=== PATIENT | female | born 1955 | race Caucasian/White ===

== ENCOUNTER 2017-01-06 12:49 | Emergency (ER) | payer OTHER ==
[~2017-01-06] VITALS: Ht 152.4 cm; Wt 72.0 kg
[~2017-01-06 12:49] MED LIST: CACARBS PO; ESCI10TA PO; FER325 PO; FOLI-49 PO; HYDR-3498 PO; MAGN400T27 PO; METO-448 PO; MULTI PO; PANT40TA4 PO
[2017-01-06 13:01] VITALS: Ht 152.4 cm; Wt 72.0 kg
[2017-01-06] MEDS ORDERED: ELIM TOP (13:56)
[2017-01-06] MEDS ORDERED: CETI10CA PO (13:58)
--- NOTE | 2017-01-06 14:21 | ERD ---
ER Documentation Chief Complaint Date/Time DATE: 01/06/17 TIME: 14:17 Chief Complaint generalized rash HPI Patient is a 61 year old homeless female who presents to the ED with rash x 2 days. She states that she feels " her scabies are coming back." She has a history of scabies and lice. She denies seeing bugs. Denies fever or chills. Denies headache or dizziness. Denies chest pain, cough, shortness of breath or difficulty breathing. Denies abdominal pain, nausea, vomiting or diarrhea or constipation. She states that her arms, legs, abdomen and back are itchy. Denies bleeding. ROS All systems reviewed and are negative except as per history of present illness. Medications Home Meds Active Scripts Cetirizine Hcl* (Zyrtec*) 10 Mg Capsule, 10 MG PO DAILY, #20 TAB.CHEW Prov:EDWINA ABEBE PA-C 01/06/17 Permethrin* (Elimite*) 5% Cr, 1 APPLIC TOP ONCE for 7 Days, #2 TUB Prov:EDWINA ABEBE PA-C 01/06/17 Hydrocodone Bit-Acetaminophen* (Mercedes*) 5-325 Mg Tab, 1 TAB PO Q6 Y for PAIN, # 7 TAB Prov:JARETT HO [employer]SM[employer]ION [employer] 11/05/15 Hydrocodone Bit-Acetaminophen* (Mercedes*) 5-325 Mg Tab, 1 TAB PO Q6 Y for PAIN, # 20 TAB Prov:ANILA GARCIA DO 11/02/15 Pantoprazole* (Pantoprazole*) 40 Mg Tabec, 40 MG PO DAILY@06 for 30 Days Prov:HELEN GONZALEZ. 10/16/15 Multivitamins* (Theragran*) 1 Tab Tab, 1 TAB PO DAILY for 30 Days, TAB Prov:HELEN GONZALEZ M. 10/16/15 Metoprolol Tartrate* (Lopressor*) 25 Mg Tab, 12.5 MG PO BID for 14 Days, TAB Prov:HELEN GONZALEZ M. 10/16/15 Magnesium Oxide* (Mag-Oxide*) 400 Mg Tab, 400 MG PO BID for 30 Days, TAB Prov:HELEN GONZALEZ. 10/16/15 Folic Acid* (Folic Acid*) 1 Mg Tab, 1 MG PO DAILY for 30 Days, TAB Prov:HELEN GONZALEZ. 10/16/15 Ferrous Sulfate* (Ferrous Sulfate*) 325 Mg Tabec, 325 MG PO TID for 30 Days, TAB Prov:HELEN GONZALEZ. 10/16/15 Calcium Carbonate (Ca Carbonate Susp (PEDIATRIC)) 1,250 Mg/5 Ml Susp, 1250 MG PO TID for 30 Days Prov:HELEN GONZALEZ. 10/16/15 Escitalopram Oxalate* (Lexapro*) 10 Mg Tab, 10 MG PO DAILY for 30 Days, TAB Prov:HELEN GONZALEZ. 10/16/15 Allergies Allergies: Coded Allergies: sulfamethoxazole (Verified Allergy, Unknown, 11/02/15) trimethoprim (Verified Allergy, Unknown, 11/02/15) PMhx/Soc Medical and Surgical Hx: pt denies Surgical Hx History of Surgery: No Anesthesia Reaction: No Hx Neurological Disorder: No Hx Respiratory Disorders: No (copd) Hx Cardiac Disorders: No Hx Psychiatric Problems: No Hx Miscellaneous Medical Probl: Yes (breast augmentation) Hx Alcohol Use: No Hx Substance Use: No Hx Tobacco Use: No Smoking Status: Never smoker FmHx Family History: No coronary disease, No diabetes, No other Physical Exam Vitals Vital Signs Date Time Temp Pulse Resp B/P Pulse Ox O2 Delivery O2 Flow Rate FiO2 01/06/17 13:01 98.5 104 18 139/74 98 Physical Exam GENERAL: Well-developed, well-nourished female. Appears in no acute distress. LUNG: Clear to auscultation bilaterally. No rhonchi, wheezing, rales or coarse breath sounds. HEART: Regular rate and rhythm. No murmurs, rubs or gallops. ABDOMEN: No scars, ecchymosis or rashes noted. Soft, nontender, and nondistended. Positive bowel sounds in all four quadrants. No rebound tenderness , no guarding. (-) McBurneys point tenderness. No CVA tenderness. BACK: No midline tenderness. Extremities: Equal pulses bilaterally. No peripheral clubbing, cyanosis or edema. No unilateral leg swelling. NEUROLOGIC: Alert and oriented. Moving all four extremities. 5/5 strength in all extremities. Normal speech. Steady gait. SKIN: Normal color. Warm and dry. No rashes or lesions. Capillary refill < 2 seconds Procedures/MDM ER COURSE: I kept the patient and/or family informed of laboratory and diagnostic imaging results throughout the emergency room course. MEDICAL DECISION MAKING: This is a 61 year old female who presents with rash. Vital signs were reviewed. Patient is afebrile. Patient is not hypoxic. Patient is not toxic or ill- appearing. Patient has rash of unknown etiology. There are no excoriations or bugs seen on examination however I will be treating the patient prophylactically. Low suspicion for necrotizing fasciitis, SJS, toxic epidermal necrolysis, Kawasaki, erythema multiforme, gangrene, scarlet fever, meningococcemia, sepsis, anaphylaxis, sepsis, deep space infection, or foreign body. DISCHARGE: At this time, patient is stable for discharge and outpatient management with no new complaints during the ER course. Patient was sent home with permethrin. Patient will be discharged home with instructions to recheck for new or worsening symptoms such as fever, nausea, weakness, LOC and to follow up with primary care in the next 1-2 days. Patient was advised to return to the ER for any new or worsening symptoms. Plan was discussed and patient and/or family understands and agrees. Home instructions were given. Departure Diagnosis: Primary Impression: Rash Condition: Stable Patient Instructions: Scabies Referrals: YAIR JEAN BAPTISTE (PCP) Additional Instructions: Call your primary care doctor TOMORROW for an appointment during the next 1-2 days.See the doctor sooner or return here if your condition worsens before your appointment time. EDWINA ABEBE PA-C Jan 06, 2017 14:21
[2017-01-06 15:40] VITALS: BP 132/75; PULSE 90; RESP 18; TEMP 98.4
== END 2017-01-06 15:40 | disposition home or self-care (01) ==
LOC: FTE 12:49
DX: R21 Rash and other nonspecific skin eruption (principal); J44.9 Chronic obstructive pulmonary disease, unspecified
CPT/HCPCS: 99283

== ENCOUNTER 2017-10-22 12:38 | Emergency (ER) | END 2017-10-22 15:00 | disposition left against medical advice (07) ==

== ENCOUNTER 2017-12-12 02:06 | Inpatient (IN) | END 2017-12-12 03:45 | disposition left against medical advice (07) | DRG 603 ==

== ENCOUNTER 2018-03-22 11:19 | Inpatient (IN) | END 2018-03-29 16:20 | disposition home health service (06) | DRG 871 ==

== ENCOUNTER 2018-05-24 14:04 | Inpatient (IN) | END 2018-05-31 19:25 | disposition home health service (06) | DRG 314 ==

== ENCOUNTER 2018-12-23 20:29 | Observation (INO) | payer MEDICARE, OTHER ==
[~2018-12-23] VITALS: Ht 167.6 cm; Wt 51.3 kg
[~2018-12-23 20:29] MED LIST changes: -CACARBS PO; -ESCI10TA PO; -FER325 PO; -FOLI-49 PO; -HYDR-3498 PO; -MAGN400T27 PO; +METH10SO PO; +OMEP20CA16 PO; +OXYC15TA PO; -PANT40TA4 PO; +SEVE800T7 PO
[2018-12-24] VITALS (22 sets, daily range): BP systolic 93–145; BP diastolic 65–83; PULSE 78–110; RESP 18–20; Ht 167.6 cm; Wt 51.3 kg
[2018-12-24] MEDS ORDERED: morphine 2 MG INJ IV STA (03:18)
--- NOTE | 2018-12-24 03:18 | ERD ---
ER Documentation Chief Complaint Chief Complaint cp x3 days, +right hand redness and swelling. hx ERSD w/ dialysis HPI This is a 63-year-old female coming with chest pain for 3 days. She says he has had increasing shortness of breath. She complains of right hand pain for 2 weeks as well but was x-rayed another hospital and was found to be negative. Shortness of breath or chest pain getting progressively worse including orthopn ea and dyspnea on exertion. No fevers no chills no nausea no vomiting. No other current complaints ROS All systems reviewed and are negative except as per history of present illness. Medications Home Meds Reported Medications Methadone Hcl* (Methadone Hcl*) 10 Mg/5 Ml Solution, 107 MG PO DAILY, ML 05/23/18 Sevelamer Carbonate* (Renvela*) 800 Mg Tablet, 0.8 GM PO WITH MEALS, TAB 05/21/18 Metoprolol Tartrate* (Lopressor*) 25 Mg Tab, 25 MG PO BID, #60 TAB 05/21/18 Oxycodone Hcl* (IR) (Oxycodone Hcl*) 15 Mg Tablet, 15 MG PO Q4H PRN for PAIN, TAB 05/21/18 Omeprazole* (Omeprazole*) 20 Mg Capsule.dr, 20 MG PO AC BREAKFAST, #30 CAP 03/22/18 Multivitamins* (Theragran*) 1 Tab Tab, 1 TAB PO DAILY, TAB 03/22/18 Allergies Allergies: Coded Allergies: sulfamethoxazole (Verified Allergy, Unknown, 12/23/18) trimethoprim (Verified Allergy, Unknown, 12/23/18) PMhx/Soc History of Surgery: Yes Anesthesia Reaction: No Hx Neurological Disorder: Yes (acute encephalopathy, rheumatoid arthritis) Hx Respiratory Disorders: No Hx Cardiac Disorders: No Hx Psychiatric Problems: No Hx Miscellaneous Medical Probl: Yes (anemia, pancreatitis ) Hx Alcohol Use: Yes (Quit alcohol 2013) Hx Substance Use: Yes (Quit heroin/cocaine in 2009) Hx Tobacco Use: No Smoking Status: Former smoker Physical Exam Vitals Vital Signs Date Temp Pulse Resp B/P (MAP) Pulse Ox O2 O2 Flow FiO2 Time Delivery Rate 12/23/18 97 19 154/99 95 23:11 (117) 12/23/18 Nasal 3 23:05 Cannula 12/23/18 97.1 96 20 155/85 98 21:08 (108) Physical Exam Const: No acute distress Head: Atraumatic Eyes: Normal Conjunctiva ENT: Normal External Ears, Nose and Mouth. Neck: Full range of motion. No meningismus. Resp: Clear to auscultation bilaterally Cardio: Regular rate and rhythm, no murmurs Abd: Soft, non tender, non distended. Normal bowel sounds Skin: No petechiae or rashes Back: No midline or flank tenderness Ext: No cyanosis, or edema Neur: Awake and alert Psych: Normal Mood and Affect Result Diagram: 12/23/18 2326 12/23/18 2326 Results 24 hrs Laboratory Tests Test 12/23/18 23:26 White Blood Count 4.4 10^3/ul Red Blood Count 3.58 10^6/ul Hemoglobin 11.2 g/dl Hematocrit 34.0 % Mean Corpuscular Volume 95.0 fl Mean Corpuscular Hemoglobin 31.3 pg Mean Corpuscular Hemoglobin Concent 32.9 g/dl Red Cell Distribution Width 13.7 % Platelet Count 296 10^3/UL Mean Platelet Volume 10.4 fl Immature Granulocytes % 0.000 % Neutrophils % 3.2 % Lymphocytes % 54.1 % Monocytes % 42.0 % Eosinophils % 0.0 % Basophils % 0.7 % Nucleated Red Blood Cells % 0.0 /100WBC Immature Granulocytes # 0.000 10^3/ul Neutrophils # 0.1 10^3/ul Lymphocytes # 2.4 10^3/ul Monocytes # 1.8 10^3/ul Eosinophils # 0.0 10^3/ul Basophils # 0.0 10^3/ul Nucleated Red Blood Cells # 0.0 10^3/ul Sodium Level 137 mmol/L Potassium Level 5.1 mmol/L Chloride Level 91 mmol/L Carbon Dioxide Level 27 mmol/L Anion Gap 19 Blood Urea Nitrogen 66 mg/dl Creatinine 8.58 mg/dl Est Glomerular Filtrat Rate mL/min 5 mL/min Glucose Level 93 mg/dl Calcium Level 9.3 mg/dl Total Bilirubin 0.0 mg/dl Direct Bilirubin 0.00 mg/dl Indirect Bilirubin 0.0 mg/dl Aspartate Amino Transf (AST/SGOT) 20 IU/L Alanine Aminotransferase (ALT/SGPT) < 6 IU/L Alkaline Phosphatase 186 IU/L Troponin I 0.028 ng/ml B-Type Natriuretic Peptide 83926 PG/ML Total Protein 8.3 g/dl Albumin 3.8 g/dl Globulin 4.50 g/dl Albumin/Globulin Ratio 0.84 Procedures/MDM Emergency room course: Patient seen about the charges placed in bed from evaluation of blood work done for spontaneous child monitor as well as oximetry. I said he could do such as a cast at hand x-ray. Diagnostic data: EKG: Rate/Rhythm: [Normal Sinus Rhythm] QRS, ST, T-waves: [No changes consistent w/ acute ischemia] Impression: [No evidence of ischemia or arrhythmia] Chest X-ray 1V Interpreted by me: Soft Tissue: No acute ab normalities Bones: No acute abnormalities Mediastinum/Cardiac Silhouette/Lungs: [No acute abnormalities] Medical decision making: Patient's heart failure symptoms is concerning for acute decompensation and will require inpatient workup and monitoring. Further w/u for ischemia, arrhythmia, PE or dissection will be deferred to the inpatient team. Accepting Care Team: Current data and ongoing care discussed. Time: 12:15 AM Primary Provider: Hospitalist Consulting: Deferred to inpatient team Outstanding Data: none Departure Diagnosis: Primary Impression: Chest pain Chest pain type: unspecified Qualified Codes: R07.9 - Chest pain, unspecified Condition: Serious ADAN MCCARTHY Dec 24, 2018 03:18
[2018-12-24] MEDS: NITROGLYCERIN (SL) 0.4 MG TAB SL PRN ×2 (03:36→03:47)
[2018-12-24] MEDS ORDERED: NACL 0.9% 3 ML SYG IV SCH (04:00)
[2018-12-24] MEDS ORDERED: ALBUTEROL/IPRATROPIUM (NEB) 3 ML AMP HHN PRN (04:00)
[2018-12-24] MEDS ORDERED: ACETAMINOPHEN 325 MG TAB PO PRN (04:00)
[2018-12-24] MEDS ORDERED: NITROGLYCERIN (SL) 0.4 MG TAB SL PRN (04:00)
[2018-12-24] MEDS ORDERED: ONDANSETRON 4 MG INJ IV PRN (04:00)
[2018-12-24] MEDS ORDERED: SODI650T PO (04:27)
[2018-12-24] MEDS ORDERED: SODI15OR8 PO (04:27)
[2018-12-24] MEDS: PANTOPRAZOLE (EC) 40 MG TAB PO SCH (05:51)
[2018-12-24] MEDS: oxyCODONE 15 MG TAB PO PRN ×3 (05:55→14:22)
[2018-12-24] MEDS: SEVELAMER CARBONATE 0.8 GM PKT PO SCH ×3 (08:00→18:29)
[2018-12-24] MEDS ORDERED: METHADONE HCL XX SCH (09:00)
[2018-12-24] MEDS: METOPROLOL 25 MG TAB PO SCH ×2 (09:00→21:00)
[2018-12-24] MEDS: MULTIVITAMINS THERAPEUTIC TAB PO SCH (09:00)
[2018-12-24] MEDS: HEPARIN 5,000 UNIT/1 ML VIAL SC SCH ×2 (09:04→21:00)
--- NOTE | 2018-12-24 09:10 | HP ---
Date/Time of Note Date/Time of Note DATE: 12/24/18 TIME: 09:03 Assessment/Plan VTE Prophylaxis Pharmacological prophylaxis: heparin Lines/Catheters IV Catheter Type (from Nrsg): Saline Lock Urinary Cath still in place: No Assessment/Plan Assessment/Plan 1. Chest pain: Will rule out ACS 2. Total body pain, possibly related to arthritic pain: Pain management 3. Right hand swelling and pain: Patient fell off her bed 4 days ago. She said she had x-ray as outpatient and was told that no fracture -We will order CT for better evaluation -Pain management 4. ESRD on HD: Nephrology for dialysis 5. History of rheumatoid arthritis: Pain management as needed Result Diagram: 12/24/18 0602 12/24/18 0602 Results 24hrs Laboratory Tests Test 12/23/18 23:26 12/24/18 06:02 White Blood Count 4.4 #L 3.8 L Red Blood Count 3.58 L 3.29 L Hemoglobin 11.2 L 10.4 L Hematocrit 34.0 L 31.3 L Mean Corpuscular Volume 95.0 95.1 Mean Corpuscular Hemoglobin 31.3 31.6 Mean Corpuscular Hemoglobin Concent 32.9 33.2 Red Cell Distribution Width 13.7 13.6 Platelet Count 296 # 258 Mean Platelet Volume 10.4 10.7 H Immature Granulocytes % 0.000 L 0.300 Neutrophils % 3.2 L 3.4 L Lymphocytes % 54.1 H 53.9 H Monocytes % 42.0 H 41.6 H Eosinophils % 0.0 0.0 Basophils % 0.7 0.8 Nucleated Red Blood Cells % 0.0 0.0 Immature Granulocytes # 0.000 0.010 Neutrophils # 0.1 L 0.1 L Lymphocytes # 2.4 2.0 Monocytes # 1.8 H 1.6 H Eosinophils # 0.0 0.0 Basophils # 0.0 0.0 Nucleated Red Blood Cells # 0.0 0.0 Sodium Level 137 135 Potassium Level 5.1 5.3 H Chloride Level 91 L 91 L Carbon Dioxide Level 27 25 Anion Gap 19 H 19 H Blood Urea Nitrogen 66 H 70 H Creatinine 8.58 H 8.64 H Est Glomerular Filtrat Rate mL/min 5 L 5 L Glucose Level 93 109 Calcium Level 9.3 8.5 Total Bilirubin 0.0 L 0.0 L Direct Bilirubin 0.00 0.00 Indirect Bilirubin 0.0 0.0 Aspartate Amino Transf (AST/SGOT) 20 22 Alanine Aminotransferase (ALT/SGPT) < 6 L < 6 L Alkaline Phosphatase 186 H 158 H Troponin I 0.028 0.039 B-Type Natriuretic Peptide 71404 H Total Protein 8.3 H 7.6 Albumin 3.8 3.5 Globulin 4.50 H 4.10 H Albumin/Globulin Ratio 0.84 0.85 Magnesium Level 1.9 Creatine Kinase 38 Creatine Kinase Index 3.6 Creatinine Kinase MB (Mass) 1.38 Triglycerides Level 99 Cholesterol Level 121 LDL Cholesterol, Calculated 76 HDL Cholesterol 25 L Cholesterol/HDL Ratio 4.8 HPI/ROS Admit Date/Time Admit Date/Time Dec 24, 2018 at 01:35 Hx of Present Illness This is a 63-year-old female with a history of hypertension, rheumatoid arthritis, GERD, ESRD on HD. Patient presented to ER complaining of total body pain, chest pain and right hand swelling and pain. She said 4 days ago, she fell off her bed which resulted in a progressively worsening right hand swelling and pain. She said 2 days ago, she had x-ray of right hand and also her right hip and was told was normal. In the ER, EKG without ST elevation or depression. First troponin negative. Chest x-ray shows Trace right-sided pleural effusion and partial lung expansion with expected bibasilar subsegmental atelectasis. PMH/Family/Social Past Medical History Medical History: other Medications Current Medications Nitroglycerin (Nitroglycerin (Sl Tab) 0.4 Mg) 1 tab [id number] PRN SL CHEST PAIN Last administered on 12/24/18at 03:47; Admin Dose 1 TAB; Start 12/24/18 at 03:30 IV Flush (NS 3 ml) 3 ml PER PROTOCOL IV ; Start 12/24/18 at 04:00 Ondansetron HCl (Zofran Inj) 4 mg Q6H PRN IV NAUSEA/VOMITING; Start 12/24/18 at 04:00 Nitroglycerin (Nitroglycerin (Sl Tab) 0.4 Mg) 1 tab Q5M PRN SL .CHEST PAIN; Start 12/24/18 at 04:00 Acetaminophen (Tylenol Tab) 650 mg Q6H PRN PO .PAIN 1-3 OR TEMP; Start 12/24/18 at 04:00 Heparin Sodium (Porcine) (Heparin (5000 Units/1ml)) 5,000 unit Q12 SC ; Start 12/24/18 at 09:00 Albuterol/ Ipratropium (Duoneb) 3 ml Q2H RESP THERAPY PRN HHN SHORTNESS OF BREATH; Start 12/24/18 at 04:00 Metoprolol Tartrate (Lopressor) 25 mg BID PO ; Start 12/24/18 at 09:00 Multivitamins Therapeutic (Theragran) 1 tab DAILY PO ; Start 12/24/18 at 09:00 Oxycodone HCl (Roxicodone) 15 mg Q4H PRN PO PAIN Last administered on 12/24/18at 05:55; Admin Dose 15 MG; Start 12/24/18 at 04:00 Sevelamer Carbonate (Renvela) 0.8 gm WITH MEALS PO ; Start 12/24/18 at 08:00 Miscellaneous Information 107 mg DAILY XX ; Start 12/24/18 at 09:00; Status UNV Pantoprazole (Protonix Tab) 40 mg DAILY@06 PO Last administered on 12/24/18at 05:51; Admin Dose 40 MG; Start 12/24/18 at 06:00 Coded Allergies: sulfamethoxazole (Verified Allergy, Unknown, 12/23/18) trimethoprim (Verified Allergy, Unknown, 12/23/18) Past Surgical History Past Surgical Hx: other (See HPI) Family History Significant Family History: other Social History Alcohol Use: other Smoking Status: Never smoker Drug Use: other Exam/Review of Systems Vital Signs Vitals Vital Signs Date Temp Pulse Resp B/P (MAP) Pulse Ox O2 O2 Flow FiO2 Time Delivery Rate 12/24/18 98.8 93 20 128/72 97 07:29 (90) 12/24/18 Nasal 2.0 04:08 Cannula Intake and Output 12/23/18 12/23/18 12/24/18 1515:00 23:00 07:00 IntakeIntake Total 800 ml BalanceBalance 800 ml Exam Constitutional: other (Slightly sleepy, but was fully arousable and answering questions appropriately) Head: normocephalic, atraumatic Eyes: PERRL Respiratory: clear to auscultation Cardiovascular: other (Slightly tachycardic regular rhythm) Gastrointestinal: soft Extremities: normal pulses, other (Right hand is swollen and tender to deep palpation. ) ADAN DO MD Dec 24, 2018 09:10
--- NOTE | 2018-12-24 13:14 | PN ---
Date/Time of Note Date/Time of Note DATE: 12/24/18 TIME: 13:10 Assessment/Plan VTE Prophylaxis Risk score (from Nsg)>0 risk: 6 SCD applied (from Nsg): Yes Pharmacological prophylaxis: heparin Lines/Catheters IV Catheter Type (from Nrsg): Saline Lock Urinary Cath still in place: No Assessment/Plan Assessment/Plan 1. Chest pain, musculoskeletal, negative troponin, pain control 2. Chronic pain syndrome, on methadone, follow up with pain management outpatient 3. Right hand swelling and pain, no fracture, pain control, CT scan done awaiting for report 4. ESRD on HD, TTS, HD today 5. Rheumatoid arthritis: Pain management as needed 6. DVT prophylaxis: heparin SQ Result Diagram: 12/24/18 0602 12/24/18 0602 Results 24hrs Laboratory Tests Test 12/23/18 23:26 12/24/18 05:58 12/24/18 06:02 12/24/18 10:36 White Blood Count 4.4 #L 3.8 L Red Blood Count 3.58 L 3.29 L Hemoglobin 11.2 L 10.4 L Hematocrit 34.0 L 31.3 L Mean Corpuscular 95.0 95.1 Volume Mean Corpuscular 31.3 31.6 Hemoglobin Mean Corpuscular 32.9 33.2 Hemoglobin Concent Red Cell 13.7 13.6 Distribution Width Platelet Count 296 # 258 Mean Platelet Volume 10.4 10.7 H Immature 0.000 L 0.300 Granulocytes % Neutrophils % 3.2 L 3.4 L Lymphocytes % 54.1 H 53.9 H Monocytes % 42.0 H 41.6 H Eosinophils % 0.0 0.0 Basophils % 0.7 0.8 Nucleated Red Blood 0.0 0.0 Cells % Immature 0.000 0.010 Granulocytes # Neutrophils # 0.1 L 0.1 L Lymphocytes # 2.4 2.0 Monocytes # 1.8 H 1.6 H Eosinophils # 0.0 0.0 Basophils # 0.0 0.0 Nucleated Red Blood 0.0 0.0 Cells # Sodium Level 137 135 Potassium Level 5.1 5.3 H Chloride Level 91 L 91 L Carbon Dioxide Level 27 25 Anion Gap 19 H 19 H Blood Urea Nitrogen 66 H 70 H Creatinine 8.58 H 8.64 H Est Glomerular 5 L 5 L Filtrat Rate mL/min Glucose Level 93 109 Calcium Level 9.3 8.5 Total Bilirubin 0.0 L 0.0 L Direct Bilirubin 0.00 0.00 Indirect Bilirubin 0.0 0.0 Aspartate Amino 20 22 Transf (AST/SGOT) Alanine < 6 L < 6 L Aminotransferase (AL T/SGPT) Alkaline Phosphatase 186 H 158 H Troponin I 0.028 0.039 0.042 B-Type Natriuretic 38809 H Peptide Total Protein 8.3 H 7.6 Albumin 3.8 3.5 Globulin 4.50 H 4.10 H Albumin/Globulin 0.84 0.85 Ratio Hepatitis B Surface NEGATIVE Antigen Magnesium Level 1.9 Creatine Kinase 38 45 Creatine Kinase 3.6 2.3 Index Creatinine Kinase MB 1.38 1.02 (Mass) Triglycerides Level 99 Cholesterol Level 121 LDL Cholesterol, 76 Calculated HDL Cholesterol 25 L Cholesterol/HDL 4.8 Ratio Subjective 24 Hr Interval Summary Free Text/Dictation left lower chest pain, worse on deep breath Exam/Review of Systems Exam Vitals Vital Signs Date Temp Pulse Resp B/P (MAP) Pulse Ox O2 O2 Flow FiO2 Time Delivery Rate 12/24/18 98.9 80 20 122/73 96 11:49 (89) 12/24/18 Nasal 2.0 09:15 Cannula Intake and Output 12/23/18 12/23/18 12/24/18 1414:59 22:59 06:59 IntakeIntake Total 800 ml BalanceBalance 800 ml Constitutional: alert, oriented, well developed Head: normocephalic, atraumatic Eyes: nl conjunctiva, EOMI, nl lids, PERRL ENMT: nl external ears & nose, nl lips & teeth, nl nasal mucosa & septum Neck: supple, non-tender Respiratory: clear to auscultation, normal air movement; No congested cough, No crackles/rales, No diminished breath sounds, No intercostal retraction, No labored breathing, No respirations, No tactile fremitus, No wheezing, No other Cardiovascular: regular rate and rhythm, nl pulses; No bruits, No diastolic murmur, No edema, No gallop, No irregular rhythm, No jugular venous distention (JVD), No murmurs/extra sounds, No rub, No systolic murmur, No S3, No S4, No other Gastrointestinal: soft, nl liver, spleen, non-tender Musculoskeletal: nl extremities to inspection Extremities: normal pulses; No calf tenderness, No cyanosis, No clubbing, No edema, No pitting pedal edema, No palpable cord, No tenderness, No other Neurological: KILN SETTER II-XII intact, nl mental status, nl speech, nl strength Results Results 24hrs Laboratory Tests Test 12/23/18 23:26 12/24/18 05:58 12/24/18 06:02 12/24/18 10:36 White Blood Count 4.4 #L 3.8 L Red Blood Count 3.58 L 3.29 L Hemoglobin 11.2 L 10.4 L Hematocrit 34.0 L 31.3 L Mean Corpuscular 95.0 95.1 Volume Mean Corpuscular 31.3 31.6 Hemoglobin Mean Corpuscular 32.9 33.2 Hemoglobin Concent Red Cell 13.7 13.6 Distribution Width Platelet Count 296 # 258 Mean Platelet Volume 10.4 10.7 H Immature 0.000 L 0.300 Granulocytes % Neutrophils % 3.2 L 3.4 L Lymphocytes % 54.1 H 53.9 H Monocytes % 42.0 H 41.6 H Eosinophils % 0.0 0.0 Basophils % 0.7 0.8 Nucleated Red Blood 0.0 0.0 Cells % Immature 0.000 0.010 Granulocytes # Neutrophils # 0.1 L 0.1 L Lymphocytes # 2.4 2.0 Monocytes # 1.8 H 1.6 H Eosinophils # 0.0 0.0 Basophils # 0.0 0.0 Nucleated Red Blood 0.0 0.0 Cells # Sodium Level 137 135 Potassium Level 5.1 5.3 H Chloride Level 91 L 91 L Carbon Dioxide Level 27 25 Anion Gap 19 H 19 H Blood Urea Nitrogen 66 H 70 H Creatinine 8.58 H 8.64 H Est Glomerular 5 L 5 L Filtrat Rate mL/min Glucose Level 93 109 Calcium Level 9.3 8.5 Total Bilirubin 0.0 L 0.0 L Direct Bilirubin 0.00 0.00 Indirect Bilirubin 0.0 0.0 Aspartate Amino 20 22 Transf (AST/SGOT) Alanine < 6 L < 6 L Aminotransferase (AL T/SGPT) Alkaline Phosphatase 186 H 158 H Troponin I 0.028 0.039 0.042 B-Type Natriuretic 40518 H Peptide Total Protein 8.3 H 7.6 Albumin 3.8 3.5 Globulin 4.50 H 4.10 H Albumin/Globulin 0.84 0.85 Ratio Hepatitis B Surface NEGATIVE Antigen Magnesium Level 1.9 Creatine Kinase 38 45 Creatine Kinase 3.6 2.3 Index Creatinine Kinase MB 1.38 1.02 (Mass) Triglycerides Level 99 Cholesterol Level 121 LDL Cholesterol, 76 Calculated HDL Cholesterol 25 L Cholesterol/HDL 4.8 Ratio Medications Medication Current Medications Nitroglycerin (Nitroglycerin (Sl Tab) 0.4 Mg) 1 tab [id number] PRN SL CHEST PAIN Last administered on 12/24/18at 03:47; Admin Dose 1 TAB; Start 12/24/18 at 03:30 IV Flush (NS 3 ml) 3 ml PER PROTOCOL IV ; Start 12/24/18 at 04:00 Ondansetron HCl (Zofran Inj) 4 mg Q6H PRN IV NAUSEA/VOMITING; Start 12/24/18 at 04:00 Nitroglycerin (Nitroglycerin (Sl Tab) 0.4 Mg) 1 tab Q5M PRN SL .CHEST PAIN; Start 12/24/18 at 04:00 Acetaminophen (Tylenol Tab) 650 mg Q6H PRN PO .PAIN 1-3 OR TEMP; Start 12/24/18 at 04:00 Heparin Sodium (Porcine) (Heparin (5000 Units/1ml)) 5,000 unit Q12 SC Last administered on 12/24/18at 09:04; Admin Dose 5,000 UNIT; Start 12/24/18 at 09:00 Albuterol/ Ipratropium (Duoneb) 3 ml Q2H RESP THERAPY PRN HHN SHORTNESS OF BREATH; Start 12/24/18 at 04:00 Metoprolol Tartrate (Lopressor) 25 mg BID PO Last administered on 12/24/18 09:00; Admin Dose 25 MG; Start 12/24/18 at 09:00 Multivitamins Therapeutic (Theragran) 1 tab DAILY PO Last administered on 12/24/18 09:00; Admin Dose 1 TAB; Start 12/24/18 at 09:00 Oxycodone HCl (Roxicodone) 15 mg Q4H PRN PO PAIN Last administered on 12/24/18 09:59; Admin Dose 15 MG; Start 12/24/18 at 04:00 Sevelamer Carbonate (Renvela) 0.8 gm WITH MEALS PO Last administered on 3/12/19at 12:10; Admin Dose 0.8 GM; Start 12/24/18 at 08:00 Miscellaneous Information 107 mg DAILY XX ; Start 12/24/18 at 09:00; Status UNV Pantoprazole (Protonix Tab) 40 mg DAILY@06 PO Last administered on 12/24/18at 05:51; Admin Dose 40 MG; Start 12/24/18 at 06:00 MAROL EUBANKS MD Dec 24, 2018 13:14
[2018-12-24] MEDS ORDERED: METHADONE HCL 10 MG/ML (1ML) POSYG PO SCH ×3 (15:30→21:00)
[2018-12-24] MEDS ORDERED: METHADONE (1 MG/ML 5 ML PO UD SYG) PO SCH (16:40)
--- NOTE | 2018-12-24 17:30 | CONS ---
Assessment/Plan Assessment/Plan Hospital Course (Demo Recall) 63 yo with multiple medical problems presents with all over body pain and chest pain lasting more than 24 hours with no acute changes on ekg and negative troponins. Chest pain unlikely cardiac, most likely musculoskeletal. Impression: Atypical chest pain ESRD Chronic pain syndrome Recommendations: Echocardiogram ordered If no significant change from 1 year ago then no further workup needed Treat underlying pain syndrome and frailty/fall risk Consultation Date/Type/Reason Admit Date/Time Dec 24, 2018 at 01:35 Date of Consultation: Dec 24, 2018 Type of Consult Cardiology Reason for Consultation chest pain Requesting Provider: MUKUL GUY Date/Time of Note DATE: 12/24/18 TIME: 17:21 Hx of Present Illness 63 yo with multiple medical problems presents yesterday due to all over body pain and inability to walk. She also has chest pain, is a constant squeezing sensation since yesterday. Patient fell out of bed four days prior to admission. Constitutional: no complaints Eyes: no complaints ENT: no complaints Respiratory: no complaints Cardiovascular: chest pain Gastrointestinal: no complaints Genitourinary: no complaints Musculoskeletal: bone/joint pain Skin: no complaints Neurologic: no complaints Endocrine: no complaints Lymphatic: no complaints Psychological: no complaints Immunologic: no complaints Past Medical History Medical History: hypertension, renal disease Home Meds Reported Medications Sodium Polystyrene Sulfonate* (Kayexalate*) 15 Gm/60 Ml Susp, 30 GM PO, ML 12/24/18 Sodium Bicarbonate* (Sodium Bicarbonate*) 650 Mg Tablet, 1300 MG PO BID, TAB 12/24/18 Methadone Hcl* (Methadone Hcl*) 10 Mg/5 Ml Solution, 107 MG PO DAILY, ML 05/23/18 Sevelamer Carbonate* (Renvela*) 800 Mg Tablet, 0.8 GM PO WITH MEALS, TAB 05/21/18 Metoprolol Tartrate* (Lopressor*) 25 Mg Tab, 25 MG PO BID, #60 TAB 05/21/18 Oxycodone Hcl* (IR) (Oxycodone Hcl*) 15 Mg Tablet, 15 MG PO Q4H PRN for PAIN, TAB 05/21/18 Omeprazole* (Omeprazole*) 20 Mg Capsule.dr, 20 MG PO AC BREAKFAST, #30 CAP 03/22/18 Multivitamins* (Theragran*) 1 Tab Tab, 1 TAB PO DAILY, TAB 03/22/18 Medications Current Medications Nitroglycerin (Nitroglycerin (Sl Tab) 0.4 Mg) 1 tab [id number] PRN SL CHEST PAIN Last administered on 12/24/18at 03:47; Admin Dose 1 TAB; Start 12/24/18 at 03:30 IV Flush (NS 3 ml) 3 ml PER PROTOCOL IV ; Start 12/24/18 at 04:00 Ondansetron HCl (Zofran Inj) 4 mg Q6H PRN IV NAUSEA/VOMITING; Start 12/24/18 at 04:00 Nitroglycerin (Nitroglycerin (Sl Tab) 0.4 Mg) 1 tab Q5M PRN SL .CHEST PAIN; Start 12/24/18 at 04:00 Acetaminophen (Tylenol Tab) 650 mg Q6H PRN PO .PAIN 1-3 OR TEMP; Start 12/24/18 at 04:00 Heparin Sodium (Porcine) (Heparin (5000 Units/1ml)) 5,000 unit Q12 SC Last administered on 12/24/18at 09:04; Admin Dose 5,000 UNIT; Start 12/24/18 at 09:00 Albuterol/ Ipratropium (Duoneb) 3 ml Q2H RESP THERAPY PRN HHN SHORTNESS OF BREATH; Start 12/24/18 at 04:00 Metoprolol Tartrate (Lopressor) 25 mg BID PO Last administered on 12/24/18at 09:00; Admin Dose 25 MG; Start 12/24/18 at 09:00 Multivitamins Therapeutic (Theragran) 1 tab DAILY PO Last administered on 10/02at 09:00; Admin Dose 1 TAB; Start 12/24/18 at 09:00 Oxycodone HCl (Roxicodone) 15 mg Q4H PRN PO PAIN Last administered on 12/24/18 14:22; Admin Dose 15 MG; Start 12/24/18 at 04:00 Sevelamer Carbonate (Renvela) 0.8 gm WITH MEALS PO Last administered on 12/24/18at 12:10; Admin Dose 0.8 GM; Start 12/24/18 at 08:00 Pantoprazole (Protonix Tab) 40 mg DAILY@06 PO Last administered on 12/24/18at 0 5:51; Admin Dose 40 MG; Start 12/24/18 at 06:00 Methadone HCl (Methadone Liq) 107 mg NOW PO ; Start 12/24/18 at 16:40; Stop 12/24/18 at 22:00 Methadone HCl (Methadone Liq) 107 mg DAILY PO ; Start 12/25/18 at 09:00 Allergies: Coded Allergies: sulfamethoxazole (Verified Allergy, Unknown, 12/23/18) trimethoprim (Verified Allergy, Unknown, 12/23/18) Past Surgical History Past Surgical Hx: other (See HPI) Social History Alcohol Use: other Smoking Status: Never smoker Drug Use: other Exam/Review of Systems Vital Signs Vitals Vital Signs Date Temp Pulse Resp B/P (MAP) Pulse Ox O2 O2 Flow FiO2 Time Delivery Rate 12/24/18 98.2 82 20 136/76 98 15:43 (96) 12/24/18 Nasal 2.0 09:15 Cannula Intake and Output 12/23/18 12/23/18 12/24/18 1515:00 23:00 07:00 IntakeIntake Total 800 ml BalanceBalance 800 ml Exam Constitutional: alert, oriented, frail Psych: nl mood/affect Head: normocephalic, atraumatic Eyes: nl conjunctiva, EOMI, nl lids, nl sclera ENMT: nl external ears & nose, nl lips & teeth Neck: supple; No jvd, No bruits Respiratory: clear to auscultation, normal air movement Cardiovascular: regular rate and rhythm, nl pulses, other (pain not reproduced on palpation); No murmurs/extra sounds Gastrointestinal: soft, nl liver, spleen, non-tender Musculoskeletal: nl extremities to inspection Extremities: normal pulses Neurological: nl mental status, nl speech Skin: nl turgor; No rash or lesions Labs Result Diagram: 12/24/1860112/24/18601 Results 24hrs Laboratory Tests Test 12/23/18 23:26 12/24/18 05:58 12/24/18 06:02 12/24/18 10:36 White Blood Count 4.4 #L 3.8 L Red Blood Count 3.58 L 3.29 L Hemoglobin 11.2 L 10.4 L Hematocrit 34.0 L 31.3 L Mean Corpuscular 95.0 95.1 Volume Mean Corpuscular 31.3 31.6 Hemoglobin Mean Corpuscular 32.9 33.2 Hemoglobin Concent Red Cell 13.7 13.6 Distribution Width Platelet Count 296 # 258 Mean Platelet Volume 10.4 10.7 H Immature 0.000 L 0.300 Granulocytes % Neutrophils % 3.2 L 3.4 L Lymphocytes % 54.1 H 53.9 H Monocytes % 42.0 H 41.6 H Eosinophils % 0.0 0.0 Basophils % 0.7 0.8 Nucleated Red Blood 0.0 0.0 Cells % Immature 0.000 0.010 Granulocytes # Neutrophils # 0.1 L 0.1 L Lymphocytes # 2.4 2.0 Monocytes # 1.8 H 1.6 H Eosinophils # 0.0 0.0 Basophils # 0.0 0.0 Nucleated Red Blood 0.0 0.0 Cells # Sodium Level 137 135 Potassium Level 5.1 5.3 H Chloride Level 91 L 91 L Carbon Dioxide Level 27 25 Anion Gap 19 H 19 H Blood Urea Nitrogen 66 H 70 H Creatinine 8.58 H 8.64 H Est Glomerular 5 L 5 L Filtrat Rate mL/min Glucose Level 93 109 Calcium Level 9.3 8.5 Total Bilirubin 0.0 L 0.0 L Direct Bilirubin 0.00 0.00 Indirect Bilirubin 0.0 0.0 Aspartate Amino 20 22 Transf (AST/SGOT) Alanine < 6 L < 6 L Aminotransferase (AL T/SGPT) Alkaline Phosphatase 186 H 158 H Troponin I 0.028 0.039 0.042 B-Type Natriuretic 39268 H Peptide Total Protein 8.3 H 7.6 Albumin 3.8 3.5 Globulin 4.50 H 4.10 H Albumin/Globulin 0.84 0.85 Ratio Hepatitis B Surface NEGATIVE Antigen Magnesium Level 1.9 Creatine Kinase 38 45 Creatine Kinase 3.6 2.3 Index Creatinine Kinase MB 1.38 1.02 (Mass) Triglycerides Level 99 Cholesterol Level 121 LDL Cholesterol, 76 Calculated HDL Cholesterol 25 L Cholesterol/HDL 4.8 Ratio Imaging Imaging EKG from admission last night shows nsr at 95 bpm, anterior infact. Echo from 03/2018 shows nsr with mild aortic regurgitation Medications Medications Current Medications Nitroglycerin (Nitroglycerin (Sl Tab) 0.4 Mg) 1 tab [id number] PRN SL CHEST PAIN Last administered on 12/24/18at 03:47; Admin Dose 1 TAB; Start 12/24/18 at 03:30 IV Flush (NS 3 ml) 3 ml PER PROTOCOL IV ; Start 12/24/18 at 04:00 Ondansetron HCl (Zofran Inj) 4 mg Q6H PRN IV NAUSEA/VOMITING; Start 12/24/18 at 04:00 Nitroglycerin (Nitroglycerin (Sl Tab) 0.4 Mg) 1 tab Q5M PRN SL .CHEST PAIN; Start 12/24/18 at 04:00 Acetaminophen (Tylenol Tab) 650 mg Q6H PRN PO .PAIN 1-3 OR TEMP; Start 12/24/18 at 04:00 Heparin Sodium (Porcine) (Heparin (5000 Units/1ml)) 5,000 unit Q12 SC Last administered on 12/24/18 09:04; Admin Dose 5,000 UNIT; Start 12/24/18 at 09:00 Albuterol/ Ipratropium (Duoneb) 3 ml Q2H RESP THERAPY PRN HHN SHORTNESS OF BREATH; Start 12/24/18 at 04:00 Metoprolol Tartrate (Lopressor) 25 mg BID PO Last administered on 12/24/18at 09:00; Admin Dose 25 MG; Start 12/24/18 at 09:00 Multivitamins Therapeutic (Theragran) 1 tab DAILY PO Last administered on 12/24/18 09:00; Admin Dose 1 TAB; Start 12/24/18 at 09:00 Oxycodone HCl (Roxicodone) 15 mg Q4H PRN PO PAIN Last administered on 12/24/18 14:22; Admin Dose 15 MG; Start 12/24/18 at 04:00 Sevelamer Carbonate (Renvela) 0.8 gm WITH MEALS PO Last administered on 12/24/18at 12:10; Admin Dose 0.8 GM; Start 12/24/18 at 08:00 Pantoprazole (Protonix Tab) 40 mg DAILY@06 PO Last administered on 12/24/18 05:51; Admin Dose 40 MG; Start 12/24/18 at 06:00 Methadone HCl (Methadone Liq) 107 mg NOW PO ; Start 12/24/18 at 16:40; Stop 12/24/18 at 22:00 Methadone HCl (Methadone Liq) 107 mg DAILY PO ; Start 12/25/18 at 09:00 MUKUL GUY Dec 24, 2018 17:30
--- NOTE | 2018-12-24 17:47 | CONS ---
DATE OF ADMISSION: 12/24/2018 DATE OF CONSULTATION: TYPE OF CONSULTATION: Nephrology. REASON FOR CONSULTATION: End-stage renal disease. PHYSICIAN REQUESTING CONSULT: Darion Do MD HISTORY OF PRESENT ILLNESS: This is a 63-year-old female with a past medical history of hypertension , history of rheumatoid arthritis, GERD, end-stage renal disease on hemodialysis, who presents to [facility] Emergency Room complaining of total body pain, chest pain, right leg, right hand swelling, pain. The patient states that her symptoms began 4 days ago, progressively getting w orsening especially the pain in right hand. Two days ago, the patient had x-ray of her hand and her hip and was told they were normal. Upon arrival in the emergency room, the patient's EKG that showed no evidence of ST elevation or depression. The patient had a chest x-ray which showed trace right-s ided pleural effusion and partial lung expansion. The patient was subsequently admitted to telemetry for further evaluation to rule out acute coronary syndrome. In terms of patient's renal history, the patient has end-stage renal disease on dialysis Sunday, Sun and Sunday. 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 The patient's ac cess is AV fistula. PAST MEDICAL HISTORY: History of end-stage renal disease, history of rheumatoid arthritis. PAST SURGICAL HISTORY: Status post AV fistula. FAMILY HISTORY: No family history of kidney disease. SOCIAL HISTORY: Does not drink, smoke or do drugs. ALLERGIES: PLEASE SEE LIST. MEDICATIONS: Have been reviewed. REVIEW OF SYSTEMS: A 14-point review of systems conducted. Pertinent positives stated in HPI, other lopez negative. PHYSICAL EXAMINATION: VITAL SIGNS: Blood pressure is 137/76, respiration 20, pulse 82, temperature 98.2. HEENT: Head is normocephalic. Pupils are round, reactive to light. NECK: Supple. HEART: Regular rate. LUNGS: Show diminished breath sounds at base. ABDOMEN: Soft, nontender to palpation without rebound or guarding. EXTREMITIES: Negative for clubbing, cyanosis. No edema. DERMATOLOGIC: No rashes. MUSCULOSKELETAL: Positive tenderness to palpation in bilateral hip and right wrist. No effusions no joann. NEUROLOGIC: No focal deficits. LABORATORY DATA: Show sodium 135, potassium 5.3, chloride 91, BUN 70, creatinine 8.64. White count 6.8, hemoglobin 10.4, platelet count is 258. IMAGING STUDIES: Have been reviewed. ASSESSMENT AND PLAN: This is a 63-year-old female who presents with: 1. End-stage renal disease. Plan is for hemodialysis today. We will dialyze for 3 hours of 2k bath, calcium 2.5. We will ultrafiltrate as tolerated. 2. Hyperkalemia. The patient will be dialyzed on a low potassium bath. 3. Anemia. We will monitor hemoglobin and hematocrit levels. We will give Epogen as needed. 4. Mineral bone disorder. We will monitor calcium and phosphorus levels. 5. Chest pain. Etiology is likely musculoskeletal. The patient is being ruled out for acute tolbert ry syndrome. Continue serial troponins and monitor closely. 6. Chronic pain syndrome. Continue current pain regimen. 7. Right hand swelling. The patient's imaging study shows no acute fracture. Continue to monitor. 8. Rheumatoid arthritis. Continue current treatment plan. Thank you, Dr. Do, for this interesting consult. It will be a pleasure to follow patient with you throughout the hospital course. Dictated By: IMELDA PEREIRA DO NR/NTS Conf#: [id number] DID#: [id number] CC: DARION DO MD; MARLO EUBANKS MD;*End*
[2018-12-25] VITALS (13 sets, daily range): BP systolic 96–126; BP diastolic 61–72; PULSE 78–89; RESP 18–19
[2018-12-25] MEDS: oxyCODONE 15 MG TAB PO PRN (06:01)
[2018-12-25] MEDS: PANTOPRAZOLE (EC) 40 MG TAB PO SCH (06:02)
[2018-12-25] MEDS: SEVELAMER CARBONATE 0.8 GM PKT PO SCH ×2 (08:33→12:00)
[2018-12-25] MEDS ORDERED: METHADONE HCL 10 MG/ML (1ML) POSYG PO SCH (09:00)
[2018-12-25] MEDS ORDERED: METHADONE (1 MG/ML 5 ML PO UD SYG) PO SCH (09:00)
[2018-12-25] MEDS: METOPROLOL 25 MG TAB PO SCH (09:09)
[2018-12-25] MEDS: MULTIVITAMINS THERAPEUTIC TAB PO SCH (09:09)
[2018-12-25] MEDS: HEPARIN 5,000 UNIT/1 ML VIAL SC SCH (09:12)
--- NOTE | 2018-12-25 09:20 | PN ---
DATE: 12/25/2018 SUBJECTIVE: The patient had hemodialysis yesterday, tolerated well. OBJECTIVE: VITAL SIGNS: Blood pressure is 115/68, pulse 87, respirations 18, temperature 98.4. HEENT: Head is normocephalic. NECK: Supple. HEART: Regular rate. LUNGS: Show diminished breath sounds at the base. ABDOMEN: Soft, nontender to palpation without rebound or guarding. EXTREMITIES: Negative for clubbing, cyanosis, no edema. DERMATOLOGIC: No rashes. MUSCULOSKELETAL: The patient has noted pain in bilateral hands and knees. NEUROLOGIC: No change in exam. MEDICATIONS: Reviewed. LABORATORY DATA: Reviewed. ASSESSMENT AND PLAN: 1. End-stage renal disease. The patient had hemodialysis yesterday, tolerated well. Plan is for di alysis tomorrow. 2. Hyperkalemia, resolved. Continue dialysis on low potassium bath. 3. Anemia. Continue to monitor hemoglobin and hematocrit levels. Continue Epogen. 4. Mineral bone disorder, monitor calcium and phosphorus levels. 5. Chest pain. Etiology is likely musculoskeletal. The patient has been ruled out for acute tolbert ry syndrome. 6. Chronic pain syndrome. Continue current pain regimen. 7. Rheumatoid arthritis with active arthralgias. Continue pain control, consider rheumatologic eval uation. Dictated By: IMELDA PEREIRA DO NR/NTS Conf#: [id number] DID#: [id number] CC: MARLO EUBANKS MD; ADAN DO MD;*EndCC*
--- NOTE | 2018-12-25 14:37 | DS ---
Date/Time of Note Date/Time of Note DATE: 12/25/18 TIME: 14:37 Discharge Summary Admission/Discharge Info Admit Date/Time Dec 24, 2018 at 01:35 Discharge Date/Time Discharge Diagnosis 1. Chest pain, musculoskeletal, negative troponin, pain control 2. Chronic pain syndrome, on methadone, follow up with pain management outpatient 3. Right hand swelling and pain, no fracture, pain control, CT scan done awaiting for report 4. ESRD on HD, TTS, HD today 5. Rheumatoid arthritis: Pain management as needed Patient Condition: Stable Procedures PROCEDURE: CT RIGHT HAND. CLINICAL INDICATION: Pain and swelling after fall TECHNIQUE: CT scan of the right hand was performed on a multi -slice scanner. No IV contrast was administered. Coronal and sagittal reformatted images were obtained from the axial source images. The total exam DLP equals 248.39 mGy-cm. The CDTI volume was 9.4 mGy. One or more of the following dose reduction techniques were used: - Automated exposure control. - Adjustment of the mA and/or kV according to patient size . - Use of iterative reconstruction technique. Images were reviewed on a high-resolution PACS workstation. Dicom images are available. COMPARISON: Hand radiographs same day FINDINGS: No acute fracture of the hand is detected. No dislocation. Mild degenerate joint disease at the thumb MCP and carpometacarpal joints, and the triscaphe joint, with mild joint space narrowing small marginal osteophytes. No erosions. Small benign-appearing carpal cyst in the lunate and distal scaphoid. No aggressive appearing osseous lesion. Ulnar sided predominant soft tissue edema without focal fluid collection. Tendons appear intact where seen. IMPRESSION: Ulnar sided predominant soft tissue swelling without evidence of acute fracture. Mild degenerative joint disease at the thumb, as above. RPTAT:AAJJ Physician Song Date Time Electronically viewed and signed by Chemo Moreno Physician on 12/24/2018 17:11 Hospital Course This is a 63-year-old female with a history of hypertension, rheumatoid arthritis, GERD, ESRD on HD. Patient presented to ER complaining of total body pain, chest pain and right hand swelling and pain. She said 4 days ago, she fell off her bed which resulted in a progressively worsening right hand swelling and pain. She said 2 days ago, she had x-ray of right hand and also her right hip and was told was normal. In the ER, EKG without ST elevation or depression. First troponin negative. Chest x-ray shows Trace right-sided pleural effusion and partial lung expansion with expected bibasilar subsegmental atelectasis. Troponin is negative after admission. Chest pain is considered musculoskeletal. Chest pain is much less today. Patient got CT scan for right hand, no fracture. Home Meds Reported Medications Sodium Polystyrene Sulfonate* (Kayexalate*) 15 Gm/60 Ml Susp, 30 GM PO, ML 12/24/18 Sodium Bicarbonate* (Sodium Bicarbonate*) 650 Mg Tablet, 1300 MG PO BID, TAB 12/24/18 Methadone Hcl* (Methadone Hcl*) 10 Mg/5 Ml Solution, 107 MG PO DAILY, ML 05/23/18 Sevelamer Carbonate* (Renvela*) 800 Mg Tablet, 0.8 GM PO WITH MEALS, TAB 05/21/18 Metoprolol Tartrate* (Lopressor*) 25 Mg Tab, 25 MG PO BID, #60 TAB 05/21/18 Oxycodone Hcl* (IR) (Oxycodone Hcl*) 15 Mg Tablet, 15 MG PO Q4H PRN for PAIN, TAB 05/21/18 Omeprazole* (Omeprazole*) 20 Mg Capsule.dr, 20 MG PO AC BREAKFAST, #30 CAP 03/22/18 Multivitamins* (Theragran*) 1 Tab Tab, 1 TAB PO DAILY, TAB 03/22/18 Follow-up Plan PPC and nephrology in one week Primary Care Provider Not On Staff Doctor Pending Labs Laboratory Tests Test 12/25/18 05:09 White Blood Count 4.4 10^3/ul (4.8-10.8) Red Blood Count 3.47 10^6/ul (4.20-5.40) Hemoglobin 10.8 g/dl (12.0-16.0) Hematocrit 33.1 % (37.0-47.0) Mean Corpuscular Volume 95.4 fl (82.0-101.0) Mean Corpuscular Hemoglobin 31.1 pg (29.0-33.0) Mean Corpuscular Hemoglobin Concent 32.6 g/dl (32.0-37.0) Red Cell Distribution Width 13.9 % (11.5-14.5) Platelet Count 262 10^3/UL (140-415) Mean Platelet Volume 11.5 fl (7.4-10.4) Immature Granulocytes % 0.200 % (0.001-0.429) Neutrophils % 5.7 % (39.0-77.0) Lymphocytes % 57.1 % (15.0-51.0) Monocytes % 36.3 % (0.0-11.0) Eosinophils % 0.0 % (0.0-7.0) Basophils % 0.7 % (0.0-2.0) Nucleated Red Blood Cells % 0.0 /100WBC (0.0-0.0) Immature Granulocytes # 0.010 10^3/ul (0.0-0.031) Neutrophils # 0.3 10^3/ul (1.6-7.5) Lymphocytes # 2.5 10^3/ul (0.8-2.9) Monocytes # 1.6 10^3/ul (0.3-0.9) Eosinophils # 0.0 10^3/ul (0.0-0.5) Basophils # 0.0 10^3/ul (0.0-0.1) Nucleated Red Blood Cells # 0.0 10^3/ul (0.0-0.0) Sodium Level 137 mmol/L (135-144) Potassium Level 4.9 mmol/L (3.5-5.1) Chloride Level 94 mmol/L (97-110) Carbon Dioxide Level 30 mmol/L (21-31) Anion Gap 13 (5-13) Blood Urea Nitrogen 33 mg/dl (7-20) Creatinine 5.11 mg/dl (0.44-1.00) Est Glomerular Filtrat Rate mL/min 8 mL/min (>60) Glucose Level 66 mg/dl (70-220) Calcium Level 9.0 mg/dl (8.4-10.2) Phosphorus Level 6.6 mg/dl (2.5-4.9) Magnesium Level 1.9 mg/dl (1.7-2.5) MARLO EUBANKS MD Dec 25, 2018 14:37
--- NOTE | 2018-12-26 08:15 | RADRPT ---
GERALD HARRISON :1955 Sex:F Status: RECONFIRMED ACC:[id number] Exam DATE:2018-12-25 07:07:19 Vent Rate: 82 bpm RR Interval: 0 msec ME Interval: 132 msec QRS Duration: 84 msec QT Interval: 378 msec QTC Interval: 441 msec P-R-T Ethel: 57 - 83 - 77 degrees Normal sinus rhythm Normal ECG Electronically Signed By: Jeramie Gibbons
--- NOTE | 2018-12-29 16:56 | RADRPT ---
Echocardiogram Report Patient Name: Isabel HARRISON ID: [id number] : 1955 (63y 3m)Study Date: 12/25/2018 9:36:24 AM Gender: FAccession #: [id number] Tech: Location: 631 Ref.Physician: ROSARIO HERNANDEZ Height(Cm): BSA: Weight(Kg): Quality: AdequateAccount #: Procedures: Echocardiographic Report: Transthoracic echocardiogram with complete 2D, M-Mode, and doppler examination. Indications: Chest Pain. Measurements: 2D/M Mode Doppler Measurement Value Normal Range Measurement Value Normal Range LVIDd 2D 4.1 [ 3.8 - 5.2 ] cm AV Peak Ramon 1.5 [ 100.0 - 170.0 ] cm/sec LVIDs 2D 2.6 [ 2.2 - 3.5 ] cm AV Peak PG 10.0 [ 2.0 - 9.0 ] mmHg LVPWd 2D 1.0 [ 0.6 - 0.9 ] cm LVOT Peak Ramon 1.3 [ 70.0 - 110.0 ] cm/sec IVSd 2D 1.0 [ 0.6 - 0.9 ] cm LVOT Peak PG 7.0 [ 2.0 - 6.0 ] mmHg AoR Diam 2D 2.0 [ 2.3 - 3.1 ] cm MV E Peak Ramon 0.8 [ 60.0 - 130.0 ] cm/sec EDV 2D 72.1 [ 46.0 - 106.0 ] ml MV A Peak Ramon 1.0 [ 100.0 - 120.0 ] cm/sec ESV 2D 24.6 [ 14.0 - 42.0 ] ml MV E/A 0.8 [ 0.8 - 1.5 ] ratio EF 2D 65.9 [ 54.0 - 74.0 ] percent MV Decel Time 278 [ 104 - 258 ] msec LA Dimen 2D 3.1 [ 2.7 - 3.8 ] cm Lat E` Ramon 0.1 [ 10.0 - 15.0 ] cm/sec Lateral E/E` 11.5 [ 1.0 - 2.0 ] ratio Med E` Ramon 0.1 cm/sec MV E/A 0.8 [ 0.8 - 1.5 ] ratio TR Peak Ramon 3.3 [ 100.0 - 280.0 ] cm/sec TR Peak PG 43.0 mmHg RVSP 46.0 [ 10.0 - 36.0 ] mmHg RA Pressure 3.0 mmHg Findings: Left Ventricle: Normal left ventricular systolic function. Normal left ventricular cavity size. Normal left ventricular wall thickness. Ejection fraction is visually estimated at 65 %. Tissue Doppler/Mitral Doppler indices are consistent with impaired relaxation (Stage I diastolic dysfunction). Right Ventricle: Normal right ventricular size. Normal right ventricular systolic function. Left Atrium: The left atrium is normal in size. Right Atrium: There is mild enlargement of right atrium. Mitral Valve: Normal appearance and function of the mitral valve with trace physiologic regurgitation. Aortic Valve: Normal appearance of the aortic valve. No significant aortic stenosis or insufficiency. Tricuspid Valve: Normal appearance of the tricuspid valve. Estimated peak PA systolic pressure 46 mmHg. There is mild tricuspid regurgitation. Pulmonic Valve: Pulmonic valve not well visualized. Pericardium: Normal pericardium with no significant pericardial effusion. Aorta: Normal aortic root. IVC: Normal size and normal respiratory collapse consistent with normal right atrial pressure. Conclusions: Normal left ventricular systolic function. Grade 1 diastolic dysfunction. Mild right atrial enlargement. Mild tricuspid regurgitation and moderate pulmonary hypertension. Electronically Signed By: Rosario Hernandez 2018-12-29 16:55:02 PDT
== END 2018-12-25 19:08 | disposition home or self-care (01) ==
LOC: E/R 20:29 → 6WM 12-24 01:35
PROVIDERS: ADMIT Internal Medicine; ATTEND Internal Medicine
DX: R07.89 Other chest pain (principal); G89.4 Chronic pain syndrome; I12.0 Hypertensive chronic kidney disease with stage 5 chronic kidney disease or end stage renal disease; N18.6 End stage renal disease; Z99.2 Dependence on renal dialysis; M06.9 Rheumatoid arthritis, unspecified; Z87.891 Personal history of nicotine dependence; E87.5 Hyperkalemia; D64.9 Anemia, unspecified; M89.8X9 Other specified disorders of bone, unspecified site; R60.0 Localized edema; M79.641 Pain in right hand
CPT/HCPCS: 36415; 71045; 73130; 73200; 80048; 80053; 80061; 82550; 82553; 83735; 83880; 84100; 84484; 85025; 87340; 93005; 93306; 99285; G0257; G0378; J1644; 90935

== ENCOUNTER 2019-01-25 19:24 | Emergency (ER) | payer MEDICARE, OTHER ==
[~2019-01-25] VITALS: Ht 165.1 cm; Wt 50.0 kg
[~2019-01-25 19:24] MED LIST changes: +SODI15OR8 PO; +SODI650T PO
[2019-01-25 19:28] VITALS: BP 128/69; PULSE 92; RESP 16; Ht 165.1 cm; Wt 50.0 kg
--- NOTE | 2019-01-26 01:03 | ERD ---
ER Documentation Chief Complaint Chief Complaint L hand swelling, pt c/o L wrist pain also HPI This is a 63-year-old right hand dominant female with past medical history of CKD, on dialysis Wednesdays, , Saturdays who presents with gradually worsening left hand swelling and wrist pain times 1 week. Patient denies any recent trauma. She denies any redness, significant pain, numbness, tingling, focal weakness or any other complaints. She was recently treated for a right wrist fracture about 3 weeks ago. She denies any associated chest pain, shortness of breath, palpitations, orthopnea, tachypnea or guilty breathing. ROS All systems reviewed and are negative except as per history of present illness. Medications Home Meds Reported Medications Sodium Polystyrene Sulfonate* (Kayexalate*) 15 Gm/60 Ml Susp, 30 GM PO, ML 12/24/18 Sodium Bicarbonate* (Sodium Bicarbonate*) 650 Mg Tablet, 1300 MG PO BID, TAB 12/24/18 Methadone Hcl* (Methadone Hcl*) 10 Mg/5 Ml Solution, 107 MG PO DAILY, ML 05/23/18 Sevelamer Carbonate* (Renvela*) 800 Mg Tablet, 0.8 GM PO WITH MEALS, TAB 05/21/18 Metoprolol Tartrate* (Lopressor*) 25 Mg Tab, 25 MG PO BID, #60 TAB 05/21/18 Oxycodone Hcl* (IR) (Oxycodone Hcl*) 15 Mg Tablet, 15 MG PO Q4H PRN for PAIN, TAB 05/21/18 Omeprazole* (Omeprazole*) 20 Mg Capsule.dr, 20 MG PO AC BREAKFAST, #30 CAP 03/22/18 Multivitamins* (Theragran*) 1 Tab Tab, 1 TAB PO DAILY, TAB 03/22/18 Allergies Allergies: Coded Allergies: sulfamethoxazole (Verified Allergy, Unknown, 12/23/18) trimethoprim (Verified Allergy, Unknown, 12/23/18) PMhx/Soc History of Surgery: Yes (bowel obstruction sx, metal plate and pins in right leg, jaw surgery) Anesthesia Reaction: No Hx Neurological Disorder: Yes (acute encephalopathy) Hx Respiratory Disorders: No Hx Cardiac Disorders: Yes (CHF) Hx Psychiatric Problems: No Hx Miscellaneous Medical Probl: Yes (anemia, pancreatitis) Hx Alcohol Use: No Hx Substance Use: No Hx Tobacco Use: No Smoking Status: Never smoker Physical Exam Vitals Vital Signs Date Temp Pulse Resp B/P (MAP) Pulse Ox O2 O2 Flow FiO2 Time Delivery Rate 01/25/19 99.5 92 16 128/69 100 19:28 (88) Physical Exam Const: No acute distress Head: Atraumatic Eyes: Normal Conjunctiva ENT: Normal External Ears, Nose and Mouth. Neck: Full range of motion. No meningismus. Resp: Clear to auscultation bilaterally Cardio: Regular rate and rhythm, no murmurs Skin: No petechiae or rashes Back: No midline or flank tenderness Ext: 2+ pitting edema of the left hand and left wrist. No significant tenderness to palpation of the wrist or the hand. Patient has full range of motion of the wrist, and the fingers. Median, radial, ulnar nerves intact. Sensation grossly intact. Motor grossly intact. Cap refill less than 2 seconds. + Dialysis port on the left upper arm. Right upper extremity normal. Neur: Awake and alert Psych: Normal Mood and Affect Procedures/MDM LABS & DIAGNOSTIC IMAGING: PROCEDURE: XR Wrist. CLINICAL INDICATION: Pain and swelling. TECHNIQUE: 4 views of the left wrist. COMPARISON: None available. FINDINGS: No fracture or dislocation is identified. The joint spaces are preserved. There is soft tissue swelling around the wrist. IMPRESSION: No fracture or dislocation of the left wrist. Soft tissue swelling around the wrist, nonspecific. PROCEDURES: Splint Assessment: Neurovascularly intact post splint placement with good fit. MEDICAL DECISION MAKING: This is a 63-year-old female with past medical history of chronic kidney disease, dialysis presents to the ED with atraumatic swelling of the left hand. She has no evidence of neurovascular compromise on physical exam. X-ray as above is negative for any acute fracture dislocation. Symptoms may be related to an occult fracture versus peripheral edema from her CKD. I recommended repeat imaging in 1 week if sx are not improved. She was placed in a Velcro splint for comfort and discharged home with copies of her x-ray. Strict return precautions discussed. Patient has no evidence of compartment syndrome, neuro logic injury, vascular injury, open joint, open fracture, tendon laceration, or foreign body. PRESCRIPTIONS: None SPECIALIST FOLLOW UP RECOMMENDED: None Patient has been advised to follow up with primary care in 1-2 days. Departure Diagnosis: Primary Impression: Swelling of left hand Condition: Stable Patient Instructions: Peripheral Edema, Unilateral Referrals: [facility] YOU HAVE RECEIVED A MEDICAL SCREENING EXAM AND THE RESULTS INDICATE THAT YOU DO NOT HAVE A CONDITION THAT REQUIRES URGENT TREATMENT IN THE EMERGENCY DEPARTMENT. FURTHER EVALUATION AND TREATMENT OF YOUR CONDITION CAN WAIT UNTIL YOU ARE SEEN IN YOUR DOCTORS OFFICE WITHIN THE NEXT 1-2 DAYS. IT IS YOUR RESPONSIBILITY TO MAKE AN APPOINTMENT FOR FOLOW-UP CARE. IF YOU HAVE A PRIMARY DOCTOR --you should call your primary doctor and schedule an appointment IF YOU DO NOT HAVE A PRIMARY DOCTOR YOU CAN CALL OUR PHYSICIAN REFERRAL HOTLINE AT IF YOU CAN NOT AFFORD TO SEE A PHYSICIAN YOU CAN CHOSE FROM THE FOLLOWING [facility] [address] [facility] [address] [facility]. [facility] [address] [facility] [address] [facility] [facility] [address] [facility]. [facility]. [address] [facility]. [facility] YOU HAVE RECEIVED A MEDICAL SCREENING EXAM AND THE RESULTS INDICATE THAT YOU DO NOT HAVE A CONDITION THAT REQUIRES URGENT TREATMENT IN THE EMERGENCY DEPARTMENT. FURTHER EVALUATION AND TREATMENT OF YOUR CONDITION CAN WAIT UNTIL YOU ARE SEEN IN YOUR DOCTORS OFFICE WITHIN THE NEXT 1-2 DAYS. IT IS YOUR RESPONSIBILITY TO MAKE AN APPOINTMENT FOR FOLOW-UP CARE. IF YOU HAVE A PRIMARY DOCTOR --you should call your primary doctor and schedule and appointment IF YOU DO NOT HAVE A PRIMARY DOCTOR YOU CAN CALL OUR PHYSICIAN REFERRAL HOTLINE AT . IF YOU CAN NOT AFFORD TO SEE A PHYSICIAN YOU CAN CHOSE FROM THE FOLLOWING [facility] INSTITUTIONS: [facility] [address] [place] [address] [facility] [address] [place] [address] [facility] [address] [place] [address] [facility] URGENT CARE/SPECIALTIES Additional Instructions: Call your primary care doctor TOMORROW for an appointment during the next 2-4 days and bring all the information and medications prescribed. If the symptoms get worse and your provider is unavailable, return to the Emerg ency Department immediately. YAZAN ARRIAGA PA-C Jan 26, 2019 01:02
== END 2019-01-26 01:26 | disposition home or self-care (01) ==
LOC: FTE 19:24
DX: R22.42 Localized swelling, mass and lump, left lower limb (principal); N18.9 Chronic kidney disease, unspecified; I50.9 Heart failure, unspecified; Z99.2 Dependence on renal dialysis

== ENCOUNTER 2019-03-04 11:11 | Inpatient (IN) | payer MEDICARE, OTHER ==
[~2019-03-04] VITALS: Ht 152.4 cm; Wt 52.0 kg
[2019-03-04 11:49] VITALS: Ht 152.4 cm; Wt 52.0 kg
[2019-03-04] MEDS ORDERED: METH10TA2 PO (12:26)
[2019-03-04] MEDS ORDERED: OMEP20CA16 PO (12:27)
[2019-03-04] MEDS ORDERED: OXYC15TA PO (12:28)
[2019-03-04] MEDS ORDERED: CLON1TAB13 PO (12:36)
[2019-03-04] MEDS ORDERED: SEVE800T7 PO (12:36)
[2019-03-04] MEDS ORDERED: FER325 PO (12:37)
[2019-03-04] MEDS ORDERED: BIOT5000 PO (12:38)
[2019-03-04] MEDS ORDERED: VANCOMYCIN 1 GM (PMX) 250 ML IVPB STA (13:21)
[2019-03-04] MEDS ORDERED: PIPER-TAZO 3.375 GM IV (PMX) 100 ML IVPB STA (13:21)
[2019-03-04] MEDS ORDERED: ONDANSETRON 4 MG INJ IV STA (13:21)
[2019-03-04] MEDS: KETAMINE HCL (50 MG/ML) 1ml syringe IV STA ×2 (13:21→14:10)
[2019-03-04] MEDS: SODIUM CHLORIDE 0.9% 1L BAG IV* STA ×2 (14:11→14:15)
[2019-03-04] MEDS ORDERED: VANCOMYCIN IV PER PHARMACY XX SCH (14:30)
[2019-03-04] MEDS ORDERED: OXYCODONE/ACETAMINOPHEN (5/325) TAB PO PRN (14:30)
[2019-03-04] MEDS ORDERED: DOCUSATE SODIUM 100 MG CAP PO PRN (14:30)
[2019-03-04] MEDS ORDERED: BISACODYL (EC) 5 MG TAB PO PRN (14:30)
[2019-03-04] MEDS ORDERED: ACETAMINOPHEN 325 MG TAB PO PRN (14:30)
[2019-03-04] MEDS ORDERED: morphine 2 MG INJ IV PRN (14:30)
[2019-03-04] MEDS ORDERED: ONDANSETRON 4 MG INJ IV PRN ×2 (14:30)
[2019-03-04] MEDS ORDERED: NACL 0.9% 3 ML SYG IV SCH (14:30)
--- NOTE | 2019-03-04 14:32 | ERD ---
ER Documentation Chief Complaint Chief Complaint LEFT ARM 4+ PITTING SWELLING, NO DIALYSIS X 4 DAYS, A0X3 HPI 63-year-old female with a history of CHF and CKD on hemodialysis presenting with left arm swelling and pain for the past 4 days. She took 2 oxycodone's prior to arrival without relief of her symptoms. She complains of 10 out of 10 pain in her lower left arm associated with swelling and redness. No recent trauma. Last dialysis was 4 days ago. She was having symptoms before her dialysis. No fevers or chills. ROS All systems reviewed and are negative except as per history of present illness. Medications Home Meds Reported Medications Biotin (Biotin) 5,000 Mcg Tab.rapdis, 5000 MCG PO 03/04/19 Ferrous Sulfate* (Ferrous Sulfate*) 325 Mg Tabec, 325 MG PO BID, TAB 03/04/19 Clonazepam* (Clonazepam*) 1 Mg Tablet, 1 MG PO QHS PRN for ANXIETY, TAB 03/04/19 Sevelamer Carbonate* (Renvela*) 800 Mg Tablet, 4 GM PO WITH MEALS, TAB 03/04/19 Oxycodone Hcl* (IR) (Oxycodone Hcl*) 15 Mg Tablet, 15 MG PO Q8 PRN for PAIN, TAB 03/04/19 Omeprazole* (Omeprazole*) 20 Mg Capsule.dr, 20 MG PO DAILY, #30 CAP 03/04/19 Methadone Hcl* (Methadone*) 10 Mg Tab, 107 MG PO DAILY, TAB 03/04/19 Discontinued Reported Medications Sodium Polystyrene Sulfonate* (Kayexalate*) 15 Gm/60 Ml Susp, 30 GM PO, ML 12/24/18 Sodium Bicarbonate* (Sodium Bicarbonate*) 650 Mg Tablet, 1300 MG PO BID, TAB 12/24/18 Methadone Hcl* (Methadone Hcl*) 10 Mg/5 Ml Solution, 107 MG PO DAILY, ML 05/23/18 Sevelamer Carbonate* (Renvela*) 800 Mg Tablet, 0.8 GM PO WITH MEALS, TAB 05/21/18 Metoprolol Tartrate* (Lopressor*) 25 Mg Tab, 25 MG PO BID, #60 TAB 05/21/18 Oxycodone Hcl* (IR) (Oxycodone Hcl*) 15 Mg Tablet, 15 MG PO Q4H PRN for PAIN, TAB 8/7/18 Omeprazole* (Omeprazole*) 20 Mg Capsule.dr, 20 MG PO AC BREAKFAST, #30 CAP 03/22/18 Multivitamins* (Theragran*) 1 Tab Tab, 1 TAB PO DAILY, TAB 03/22/18 Allergies Allergies: Coded Allergies: sulfamethoxazole (Verified Allergy, Unknown, 03/04/19) trimethoprim (Verified Allergy, Unknown, 03/04/19) PMhx/Soc History of Surgery: Yes (bowel obstruction sx, metal plate and pins in right leg, jaw surgery) Anesthesia Reaction: No Hx Neurological Disorder: Yes (acute encephalopathy) Hx Respiratory Disorders: No Hx Cardiac Disorders: Yes (CHF) Hx Psychiatric Problems: No Hx Miscellaneous Medical Probl: Yes (anemia, pancreatitis, RA) Hx Alcohol Use: No Hx Substance Use: No Hx Tobacco Use: No Smoking Status: Never smoker FmHx Family History: No diabetes Physical Exam Vitals Vital Signs Date Temp Pulse Resp B/P (MAP) Pulse Ox O2 O2 Flow FiO2 Time Delivery Rate 03/04/19 98.1 95 16 132/91 95 Room Air 13:39 (105) 03/04/19 98.2 104 17 135/88 95 11:49 (104) Physical Exam Const: In distress secondary to pain. Chronically ill-appearing, appears drowsy but answering questions appropriately Head: Atraumatic Eyes: Normal Conjunctiva ENT: Normal External Ears, Nose and Mouth. Neck: Full range of motion. No meningismus. Resp: Clear to auscultation bilaterally Cardio: Regular rate and rhythm, no murmurs. Difficult to palpate left radial pulse secondary to pain and edema. Cap refill normal. 2+ right radial pulse. 2+ DP and PT pulses bilaterally Abd: Soft, non tender, non distended. Normal bowel sounds Skin: No petechiae or rashes Back: No midline or flank tenderness Ext: Left upper extremity with fistula of the upper arm with palpable thrill. Left upper extremity with swelling from the hand up to the mid forearm with associated erythema and significant tenderness. No brawny discoloration. No crepitus to palpation. No cyanosis. Bilateral lower extremity with surgical scars, no acute swelling or evidence of trauma. No erythema. Neur: Drowsy but answering questions appropriately. Moving all extremities spontaneously. 5 out of 5 strength in right upper, and bilateral lower extremities. Unable to test strength in the left arm secondary to pain. Psych: Normal Mood and Affect Result Diagram: 03/04/19 1337 03/04/19 1337 Results 24 hrs Laboratory Tests Test 03/04/19 13:37 White Blood Count 5.8 10^3/ul Red Blood Count 3.57 10^6/ul Hemoglobin 10.9 g/dl Hematocrit 34.0 % Mean Corpuscular Volume 95.2 fl Mean Corpuscular Hemoglobin 30.5 pg Mean Corpuscular Hemoglobin Concent 32.1 g/dl Red Cell Distribution Width 17.3 % Platelet Count 396 10^3/UL Mean Platelet Volume 10.7 fl Immature Granulocytes % 0.200 % Neutrophils % % Lymphocytes % % Monocytes % % Eosinophils % % Basophils % % Nucleated Red Blood Cells % 0.0 /100WBC Immature Granulocytes # 0.010 10^3/ul Neutrophils # 10^3/ul Lymphocytes # 10^3/ul Monocytes # 10^3/ul Eosinophils # 10^3/ul Basophils # 10^3/ul Nucleated Red Blood Cells # 10^3/ul Prothrombin Time 12.6 Sec Prothrombin Time Ratio 1.0 INR International Normalized Ratio 0.93 Activated Partial Thromboplast Time 36.0 Sec Sodium Level 137 mmol/L Potassium Level 4.9 mmol/L Chloride Level 93 mmol/L Carbon Dioxide Level 28 mmol/L Anion Gap 16 Blood Urea Nitrogen 70 mg/dl Creatinine 8.61 mg/dl Est Glomerular Filtrat Rate mL/min 5 mL/min Glucose Level 87 mg/dl POC Venous Lactate 1.2 mmol/L Calcium Level 9.0 mg/dl Total Bilirubin 0.1 mg/dl Direct Bilirubin 0.00 mg/dl Indirect Bilirubin 0.1 mg/dl Aspartate Amino Transf (AST/SGOT) 20 IU/L Alanine Aminotransferase (ALT/SGPT) 8 IU/L Alkaline Phosphatase 298 IU/L C-Reactive Protein 22.1 mg/dl Total Protein 7.9 g/dl Albumin 3.6 g/dl Globulin 4.30 g/dl Albumin/Globulin Ratio 0.83 Current Medications Medications Dose Sig/Vinod Start Time Status Last (Trade) Ordered Route PRN Stop Time Admin Dose Reason Admin Sodium 1,470 ml BOLUS OVER 2 03/04/19 DC 03/04/19 Chloride HOURS STAT 13:21 14:15 (NS) IV* 03/04/19 13:24 Vancomycin 250 ml @ ONCE STAT 03/04/19 HCl 125 mls/hr IVPB 13:21 03/04/19 15:20 Piperacillin 100 ml @ ONCE STAT 03/04/19 DC 03/04/19 Sod/ 200 mls/hr IVPB 13:21 14:10 Tazobactam 03/04/19 13:50 Sod Ondansetron 4 mg ONCE STAT 03/04/19 DC 03/04/19 HCl (Zofran IV 13: 14:09 Inj) 03/04/19 13:24 Ketamine 15 mg ONCE STAT 03/04/19 DC 03/04/19 HCl IV 13:21 14:10 (Ketamine 03/04/19 13:24 HCl) Procedures/MDM EMERGENT LABS AND DIAGNOSTIC STUDIES: Lab Results above were reviewed and interpreted by me. CBC: Mild anemia, no evidence of infection CMP: Abnormalities consistent with CKD, no evidence of clinically significant electrolyte abnormality, acidosis, renal failure, hypoglycemia, liver disease, or biliary obstruction Lactate within normal limits without evidence of sepsis or tissue hypoperfusion Radiology Results as interpreted by Radiology below were reviewed by Han Santiaog MD: X-ray left forearm, wrist, hand show no acute traumatic abnormalities. Soft tissue swelling noted Chest x-ray shows no acute abnormalities Initial Nursing notes reviewed. Previous Medical Records requested via the Electronic Health Record. EMERGENCY DEPARTMENT COURSE / MEDICAL DECISION MAKING: Patient is presenting with left upper extremity swelling and exam consistent with cellulitis. She did not meet sirs criteria but blood cultures were sent as she is high risk for bacteremia in the setting of acute infection. She was treated with broad-spectrum antibiotics. Small fluid bolus given. I have a low suspicion for DVT and do not suspect necrotizing infection.. Patient will requi re admission for pain control and monitoring. She was treated with ketamine here for pain control with some good response. Accepting Care Team: Current data and ongoing care discussed. Time: Time of admission Primary Provider: Dr. Damon Departure Diagnosis: Primary Impression: Left arm cellulitis Additional Impression: CKD (chronic kidney disease) requiring chronic dialysis Condition: GENESIS Holland MD March 04, 2019 14:32
--- NOTE | 2019-03-04 15:02 | HP ---
Date/Time of Note Date/Time of Note DATE: 03/04/19 TIME: 15:02 Assessment/Plan VTE Prophylaxis Pharmacological prophylaxis: other Lines/Catheters IV [facility]ter [facility]from [facility]): Saline Lock Assessment/Plan Hospital Course Patient is a female with a past medical history significant for end- stage renal disease on hemodialysis, GERD, hypertension, rheumatoid arthritis who presents to [facility] for worsening left forearm swelling and pain. Patient and patient's at bedside state that approximately 4 days ago it began to swell up and has gotten progressively worse to the point where she could not take the pain anymore and had to come to the ED. Patient denies any known laceration or cuts or bug bite recently and it is extremely painful to move. Patient follows up with her doctor on a normal basis. Patient denies chest pain, shortness of breath, headache, nausea, vomiting, abdominal pain, leg pain. Patient does have a working AV fistula on the left upper extremity. Objective Physical exam General: Patient is laying in bed and answers questions appropriately Mentation: Patient is alert and oriented 4, Head: Normocephalic atraumatic Eyes: EOMI, pupils reactive to light Neck: Supple, nontender, midline Respiratory: Clear to auscultation bilaterally Cardiovascular: regular rate, no obvious murmurs Gastrointestinal: non-tender to palpation, bowel sounds heard. Neurological: Moves all extremities spontaneously Skin: Patient's left hand and forearm significantly swollen and erythematous, tender to palpation Assessment and plan Left upper extremity, forearm and hand cellulitis -Broad-spectrum IV antibiotic -X-rays showing soft tissue swelling -Doppler venous and arterial studies pending -Infectious disease consulted End-stage renal disease on hemodialysis -Nephrology consulted -Patient has not had dialysis in 4 days, will need dialysis soon Rheumatoid arthritis -Continue patient's methadone and other pain medication dosage as soon as it is verified by pharmacy from her methadone clinic, will need confirmation before restarting patient's 107 mg of methadone Hypertension -Patient not on any medications at home however will continue to monitor Iron deficiency anemia -Continue iron supplements Anxiety -Continue home clonazepam as needed GERD -Continue PPI Disposition -Pending arterial and venous studies, IV antibiotics for possible cellulitis. Result Diagram: 03/04/19 1337 03/04/19 1337 Results 24hrs Laboratory Tests Test 03/04/19 13:37 5/21/19 13:38 White Blood Count 5.8 # Red Blood Count 3.57 L Hemoglobin 10.9 L Hematocrit 34.0 L Mean Corpuscular Volume 95.2 Mean Corpuscular Hemoglobin 30.5 Mean Corpuscular Hemoglobin Concent 32.1 Red Cell Distribution Width 17.3 #H Platelet Count 396 # Mean Platelet Volume 10.7 H Immature Granulocytes % 0.200 Neutrophils % Segmented Neutrophils % (Manual) 1 L Band Neutrophils % (Manual) 4 Lymphocytes % Lymphocytes % (Manual) 70 H Monocytes % Monocytes % (Manual) 23 H Eosinophils % Basophils % Basophils % (Manual) 2 Nucleated Red Blood Cells % 1 H Immature Granulocytes # 0.010 Neutrophils # Neutrophils # (Manual) 0.1 L Band Neutrophils # 0.2 Lymphocytes (Manual) 4.0 H Lymphocytes # Monocytes # Monocytes # (Manual) 1.3 H Eosinophils # Basophils # Basophils # (Manual) 0.1 H Nucleated Red Blood Cells # Platelet Estimate NORMAL Polychromasia 3+ Anisocytosis 2+ Macrocytosis 1+ Ovalocytes 1+ Prothrombin Time 12.6 Prothrombin Time Ratio 1.0 INR International Normalized Ratio 0.93 Activated Partial Thromboplast Time 36.0 H Sodium Level 137 Potassium Level 4.9 Chloride Level 93 L Carbon Dioxide Level 28 Anion Gap 16 H Blood Urea Nitrogen 70 H Creatinine 8.61 H Est Glomerular Filtrat Rate mL/min 5 L Glucose Level 87 POC Venous Lactate 1.2 Calcium Level 9.0 Total Bilirubin 0.1 L Direct Bilirubin 0.00 Indirect Bilirubin 0.1 Aspartate Amino Transf (AST/SGOT) 20 Alanine Aminotransferase (ALT/SGPT) 8 L Alkaline Phosphatase 298 H C-Reactive Protein 22.1 H Total Protein 7.9 Albumin 3.6 Globulin 4.30 H Albumin/Globulin Ratio 0.83 Erythrocyte Sedimentation Rate 107 H HPI/ROS Admit Date/Time Admit Date/Time PMH/Family/Social Past Medical History Medications Current Medications Vancomycin HCl 250 ml @ 125 mls/hr ONCE STAT IVPB ; Start 03/04/19 at 13:21; Stop 03/04/19 at 15:20 Coded Allergies: sulfamethoxazole (Verified Allergy, Unknown, 03/04/19) trimethoprim (Verified Allergy, Unknown, 03/04/19) Past Surgical History Past Surgical Hx: other Family History Significant Family History: other Social History Smoking Status: Never smoker Exam/Review of Systems Vital Signs Vitals Vital Signs Date Temp Pulse Resp B/P (MAP) Pulse Ox O2 O2 Flow FiO2 Time Delivery Rate 03/04/19 98.1 95 16 132/91 95 Room Air 13:39 (105) ANDRE PEARSON March 04, 2019 15:02
[2019-03-04 17:04] VITALS: BP 149/87; PULSE 18
[2019-03-04] MEDS: oxyCODONE 15 MG TAB PO PRN (17:16)
[2019-03-04] MEDS: SEVELAMER CARBONATE 800 MG TABLET PO SCH (17:55)
--- NOTE | 2019-03-04 17:56 | CONS ---
DATE OF ADMISSION: 03/04/2019 DATE OF CONSULTATION: 03/04/2019 TYPE OF CONSULTATION: Nephrology. REASON FOR CONSULTATION: End-stage renal disease. PHYSICIAN REQUESTING CONSULT: Andre Damon MD HISTORY OF PRESENT ILLNESS: This is a 63-year-old female with a past medical history of end-stage re nal disease on dialysis Sunday, , Sunday with access of left AV fistula, history of hypert ension, history of rheumatoid arthritis, history of GERD, who presents to [facility] for evaluation of left forearm swelling and pain. The patient states her symptoms began approximat jessee 3 to 4 days ago when she started having increased swelling of her left arm which has progressivel y gotten worse. The patient denied any recent laceration, cuts or bug bites. As a result of worseni ng symptoms, the patient was brought into [facility] for evaluation. Upon arrival, the patient had laboratory data drawn which showed a normal WBC. X-ray of the hands were obtained w hich showed no fracture. The patient was started on antibiotic therapy. In terms of patient's renal history, the patient dialyzes at [place] 3 times weekly. Last hemodia lysis was Sunday. She denies any hemoptysis, hematemesis, hematochezia. PAST MEDICAL HISTORY: As stated above. History of end-stage renal disease, history of anemia, histo ry of mineral bone disorder, history of hypertension, history of rheumatoid arthritis. PAST SURGICAL HISTORY: Status post AV fistula placement. FAMILY HISTORY: No family history of kidney disease. SOCIAL HISTORY: Does not drink, smoke or do drugs. MEDICATIONS: Have been reviewed. ALLERGIES: PLEASE SEE LIST. REVIEW OF SYSTEMS: A 14-point review of systems conducted. Pertinent positives stated in HPI, other lopez negative. PHYSICAL EXAMINATION: VITAL SIGNS: Blood pressure is 108/72, respirations 20, temperature 98.6. HEENT: Head is normocephalic. NECK: Supple. HEART: Regular rate. LUNGS: Show diminished breath sounds at the base. ABDOMEN: Soft, nontender to palpation without rebound or guarding. EXTREMITIES: Negative for clubbing, cyanosis. Positive edema, left upper extremity. The patient garcia s AV fistula to the extremity, positive thrill and bruit. NEUROLOGIC: No focal deficits. DERMATOLOGIC: No rashes. LABORATORY DATA: Have been reviewed. ASSESSMENT AND PLAN: 1. End-stage renal disease. The patient is on hemodialysis Sunday, , Sunday. Last hemod ialysis was Sunday. The patient has AV fistula with palpable thrill and bruit. Anticipate hemodia lysis tomorrow. We will dialyze 3 hours of 2k bath, calcium 2.5. 2. Anemia. Monitor hemoglobin and hematocrit levels. We will give Epogen as needed. 3. Mineral bone disorder. Monitor calcium and phosphorus levels. 4. Left upper extremity cellulitis. Continue antibiotic therapy. Get a Doppler and arterial ultras ound to rule out any thrombosis. We will continue to monitor. 5. Hypertension. Continue blood pressure regimen. 6. Rheumatoid arthritis. Continue current medical management. 7. Anxiety disorder. Continue anxiolytics as needed. Thank you, Dr. Damon, for this interesting consult. It will be a pleasure to follow the patient with chris gibson throughout the hospital course. Dictated By: IMELDA PEREIRA DO NR/NTS Conf#: [id number] DID#: [id number] CC: ANDRE DAMON MD;*EndCC*
[2019-03-04] MEDS ORDERED: PIPER-TAZO 3.375 GM IV (PMX) 100 ML IVPB SCH (18:00)
[2019-03-04 20:01] VITALS: BP 133/76; PULSE 95; RESP 19
[2019-03-04] MEDS: FERROUS SULFATE (EC) 325 MG TAB PO SCH (20:53)
[2019-03-04] MEDS: PIPER-TAZO 2.25 GM/NS 50 ML IVPB SCH (21:29)
[2019-03-04] MEDS: morphine 4 MG/ML VIAL IV PRN (22:44)
[2019-03-05] VITALS (19 sets, daily range): BP systolic 92–140; BP diastolic 53–94; PULSE 87–130; RESP 18–20
[2019-03-05] MEDS: oxyCODONE 15 MG TAB PO PRN ×2 (01:57→16:58)
[2019-03-05] MEDS: ACETAMINOPHEN 325 MG TAB PO PRN (03:32)
[2019-03-05] MEDS: morphine 4 MG/ML VIAL IV PRN ×4 (04:56→21:48)
[2019-03-05] MEDS: PANTOPRAZOLE (EC) 40 MG TAB PO SCH (05:35)
[2019-03-05] MEDS: CEFAZOLIN 1 GM/50 ML (PMX) 50 ML IVPB SCH ×3 (05:35→21:47)
[2019-03-05] MEDS: PIPER-TAZO 2.25 GM/NS 50 ML IVPB SCH (06:26)
--- NOTE | 2019-03-05 08:39 | PN ---
DATE: 03/05/2019 SUBJECTIVE: The patient is stable, continues to have swelling of the left upper extremity, improving . No other acute events noted. No hemoptysis, hematemesis, or hematochezia. OBJECTIVE: VITAL SIGNS: Blood pressure is 136/76, respirations 20, pulse 130, temperature 100.3. HEENT: Head is normocephalic. NECK: Supple. HEART: Regular rate. LUNGS: Show diminished breath sounds at the base. ABDOMEN: Soft, nontender to palpation without rebound or guarding. EXTREMITIES: Negative for clubbing, cyanosis. Positive edema in the left upper extremity. DERMATOLOGIC: No rashes. MUSCULOSKELETAL: No joint effusion. NEUROLOGIC: No change in exam. MEDICATIONS: Reviewed. LABORATORY DATA: Reviewed. ASSESSMENT AND PLAN: 1. End-stage renal disease. Plan is for dialysis today. We will dialyze 3 hours 2k bath, calcium 2 .5. 2. Hyperkalemia secondary to end-stage renal disease. The patient will be dialyzed on low potassium bath. 3. Anemia. Continue to monitor hemoglobin and hematocrit levels. We will give Epogen as needed. 4. Mineral bone disorder, monitor calcium and phosphorus levels. 5. Left upper extremity cellulitis. Continue current antibiotic therapy. Imaging has been reviewed . No evidence of deep vein thrombosis. 6. Hypertension. Continue current blood pressure regimen. 7. History of rheumatoid arthritis. Continue medical management. 8. Anxiety disorder. Continue medical management. Dictated By: IMELDA PEREIRA DO NR/NTS Conf#: [id number] DID#: [id number] CC: ANDRE PEARSON MD;*EndCC*
[2019-03-05] MEDS: FERROUS SULFATE (EC) 325 MG TAB PO SCH ×2 (09:26→21:48)
[2019-03-05] MEDS: SEVELAMER CARBONATE 800 MG TABLET PO SCH ×3 (09:26→18:51)
[2019-03-05] MEDS: METHADONE 1 MG/ML (ORAL SOLN) PO SCH (13:09)
--- NOTE | 2019-03-05 13:56 | CONS ---
Assessment/Plan Assessment/Plan Hospital Course (Demo Recall) No acute changes overnight patient is laying comfortably in bed still with significant pain in her left arm. she had been having low-grade fevers with a T-max of 100.3 this morning current temperature 97.6 WBC 4.3 platelets 396 Microbiology: Blood cultures remain negative Chest x-ray on admission revealed mild bibasilar atelectatic changes. Left upper extremity ultrasou. Indwelling's left upper extremity AV fistula nd revealed no evidence for DVT arterial study was unremarkable Antimicrobials: Ancef, Vanco and Zosyn Physical examination: This is a fragile well-developed elderly woman who is awake in no distress. Head atraumatic normocephalic neck is supple chest rise symmetrical breath sounds diminished bases heart: S1-S2. Abdomen soft bowel sounds present. Extremities with left wrist and hand swelling erythema swelling also extends a little bit higher to her elbow, AV fistula patent Assessment: 1. Systemic inflammatory response syndrome 2. Left upper extremity cellulitis 3. End-stage renal disease, hemodialysis dependent 4. Rheumatoid arthritis 5. Anemia 6. Hypertension Plan: Patient is stable left upper extremity swelling improved, we will discontinue Zosyn, continue Vanco and Ancef and keep left upper extremity elevated Consultation Date/Type/Reason Admit Date/Time March 04, 2019 at 14:26 Initial Consult Date Type of Consult id Date/Time of Note DATE: 03/05/19 TIME: 13:56 Exam/Review of Systems Exam Vitals Vital Signs Date Temp Pulse Resp B/P (MAP) Pulse Ox O2 O2 Flow FiO2 Time Delivery Rate 03/05/19 97.6 96 20 100/53 94 Nasal 2.0 08:33 (69) Cannula Intake and Output 03/04/19 03/04/19 03/05/19 1515:00 23:00 07:00 IntakeIntake Total 1230 ml 220 ml OutputOutput Total 120 ml BalanceBalance 1230 ml 100 ml Results Result Diagram: 03/05/19 0452 03/05/19 0452 Results 24hrs Laboratory Tests Test 03/04/19 17:34 03/04/19 19:40 03/05/19 04:52 Lactic Acid Level 0.9 0.9 White Blood Count 4.3 #L Red Blood Count 3.58 L Hemoglobin 10.9 L Hematocrit 33.3 L Mean Corpuscular Volume 93.0 Mean Corpuscular Hemoglobin 30.4 Mean Corpuscular Hemoglobin Concent 32.7 Red Cell Distribution Width 16.7 H Platelet Count 396 Mean Platelet Volume 10.8 H Immature Granulocytes % 0.000 L Neutrophils % Segmented Neutrophils % (Manual) 1 L Lymphocytes % Lymphocytes % (Manual) 71 H Reactive Lymphocytes % (Manual) 5 H Monocytes % Monocytes % (Manual) 23 H Eosinophils % Basophils % Nucleated Red Blood Cells % 0.0 Immature Granulocytes # 0.000 Neutrophils # Lymphocytes (Manual) 3.0 H Lymphocytes # Reactive Lymphocytes # 0.2 H Monocytes # Monocytes # (Manual) 0.9 Eosinophils # Basophils # Nucleated Red Blood Cells # Platelet Estimate NORMAL Giant Platelets 1 H Polychromasia 1+ Poikilocytosis 1+ Anisocytosis 1+ Microcytosis 1+ Macrocytosis 1+ Sodium Level 135 Potassium Level 5.5 H Chloride Level 97 Carbon Dioxide Level 22 Anion Gap 16 H Blood Urea Nitrogen 75 H Creatinine 9.27 H Est Glomerular Filtrat Rate mL/min 4 L Glucose Level 81 Hemoglobin A1c 4.8 Calcium Level 8.9 Magnesium Level 1.6 L Total Bilirubin 0.1 L Direct Bilirubin 0.00 Indirect Bilirubin 0.1 Aspartate Amino Transf (AST/SGOT) 15 Alanine Aminotransferase (ALT/SGPT) < 6 L Alkaline Phosphatase 237 H Total Protein 6.8 # Albumin 3.1 L Globulin 3.70 H Albumin/Globulin Ratio 0.83 Immunoglobulin A 311 Immunoglobulin G 1576 Immunoglobulin M 88 Hepatitis B Surface Antigen NEGATIVE Medications Medication Current Medications IV Flush (NS 3 ml) 3 ml PER PROTOCOL IV ; Start 03/04/19 at 14:30 Ondansetron HCl (Zofran Inj) 4 mg Q6H PRN IV NAUSEA/VOMITING; Start 03/04/19 at 14:30 Acetaminophen (Tylenol Tab) 650 mg Q6H PRN PO .PAIN 1-3 OR TEMP Last administered on 03/05/19at 03:32; Admin Dose 650 MG; Start 03/04/19 at 14:30 Docusate Sodium (Colace) 100 mg Q12H PRN PO .CONSTIPATION; Start 03/04/19 at 14:30 Bisacodyl (Dulcolax) 5 mg DAILY PRN PO .CONSTIPATION; Start 03/04/19 at 14:30 Vancomycin HCl (Vanco Iv Per Pharmacy) VANCOMYCIN PER PHARMACY PER PROTOCOL XX ; Start 03/04/19 at 14:30 Morphine Sulfate (morphine) 4 mg Q4H PRN IV .PAIN 7-10 Last administered on 03/05/19 11:06; Admin Dose 4 MG; Start 03/04/19 at 18:30 Oxycodone HCl (Roxicodone) 15 mg Q6H PRN PO MODERATE PAIN LEVEL 4-6 Last administered on 03/05/19 01:57; Admin Dose 15 MG; Start 03/04/19 at 15:00 Clonazepam (Klonopin) 1 mg QHS PRN PO ANXIETY; Start 03/04/19 at 15:00 Ferrous Sulfate (Ferrous Sulfate (Ec)) 325 mg BID PO Last administered on 03/05/19 09:26; Admin Dose 325 MG; Start 03/04/19 at 21:00 Sevelamer Carbonate (Renvela) 4,000 mg WITH MEALS PO Last administered on 03/05/19 13:08; Admin Dose 4,000 MG; Start 03/04/19 at 17:55 Pantoprazole (Protonix Tab) 40 mg DAILY@06 PO Last administered on 03/05/19 05:35; Admin Dose 40 MG; Start 03/05/19 at 06:00 Methadone HCl (Methadone) 107 mg DAILY PO Last administered on 03/05/19 13:09; Admin Dose 107 MG; Start 03/05/19 at 12:00 Piperacillin Sod/ Tazobactam Sod 50 ml @ 100 mls/hr Q8 IVPB Last administered on 03/05/19 06:26; Admin Dose 100 MLS/HR; Start 03/04/19 at 22:00 Epoetin Jourdan-epbx (Retacrit (Non-Esrd)) 10,000 unit MoWeFr@1700 SC ; Start 03/05/19 at 17:00 Cefazolin Sodium 50 ml @ 100 mls/hr Q8 IVPB Last administered on 03/05/19at 0 5:35; Admin Dose 100 MLS/HR; Start 03/05/19 at 06:00; Stop 03/11/19 at 18:00 LATOYA SILVERMAN NP March 05, 2019 13:56
--- NOTE | 2019-03-05 14:18 | PN ---
Date/Time of Note Date/Time of Note DATE: 03/05/19 TIME: 14:16 Objective Vitals Vital Signs Date Temp Pulse Resp B/P (MAP) Pulse Ox O2 O2 Flow FiO2 Time Delivery Rate 03/05/19 97.6 96 20 100/53 94 Nasal 2.0 08:33 (69) Cannula Intake and Output 03/04/19 03/04/19 03/05/19 1515:00 23:00 07:00 IntakeIntake Total 1230 ml 270 ml OutputOutput Total 120 ml BalanceBalance 1230 ml 150 ml Results Result Diagram: 03/05/19 0452 03/05/19 0452 Medications Medications Current Medications IV Flush (NS 3 ml) 3 ml PER PROTOCOL IV ; Start 03/04/19 at 14:30 Ondansetron HCl (Zofran Inj) 4 mg Q6H PRN IV NAUSEA/VOMITING; Start 03/04/19 at 14:30 Acetaminophen (Tylenol Tab) 650 mg Q6H PRN PO .PAIN 1-3 OR TEMP Last admini stered on 03/05/19at 03:32; Admin Dose 650 MG; Start 03/04/19 at 14:30 Docusate Sodium (Colace) 100 mg Q12H PRN PO .CONSTIPATION; Start 03/04/19 at 14:30 Bisacodyl (Dulcolax) 5 mg DAILY PRN PO .CONSTIPATION; Start 03/04/19 at 14:30 Vancomycin HCl (Vanco Iv Per Pharmacy) VANCOMYCIN PER PHARMACY PER PROTOCOL XX ; Start 03/04/19 at 14:30 Morphine Sulfate (morphine) 4 mg Q4H PRN IV .PAIN 7-10 Last administered on 03/05/19at 11:06; Admin Dose 4 MG; Start 03/04/19 at 18:30 Oxycodone HCl (Roxicodone) 15 mg Q6H PRN PO MODERATE PAIN LEVEL 4-6 Last administered on 03/05/19at 01:57; Admin Dose 15 MG; Start 03/04/19 at 15:00 Clonazepam (Klonopin) 1 mg QHS PRN PO ANXIETY; Start 03/04/19 at 15:00 Ferrous Sulfate (Ferrous Sulfate (Ec)) 325 mg BID PO Last administered on 03/05/19at 09:26; Admin Dose 325 MG; Start 03/04/19 at 21:00 Sevelamer Carbonate (Renvela) 4,000 mg WITH MEALS PO Last administered on 03/05/19at 13:08; Admin Dose 4,000 MG; Start 03/04/19 at 17:55 Pantoprazole (Protonix Tab) 40 mg DAILY@06 PO Last administered on 03/05/19at 05:35; Admin Dose 40 MG; Start 03/05/19 at 06:00 Methadone HCl (Methadone) 107 mg DAILY PO Last administered on 03/05/19at 13:09; Admin Dose 107 MG; Start 03/05/19 at 12:00 Epoetin Jourdan-epbx (Retacrit (Non-Esrd)) 10,000 unit MoWeFr@1700 SC ; Start 03/05/19 at 17:00 Cefazolin Sodium 50 ml @ 100 mls/hr Q8 IVPB Last administered on 03/05/19at 14:05; Admin Dose 100 MLS/HR; Start 03/05/19 at 06:00; Stop 03/11/19 at 18:00 VTE Prophylaxis Risk score (from Ns)>0 risk: 3 SCD applied (from [facility] [place]): Yes Lines/Catheters IV Catheter Type: Britt in Place: No Assessment/Plan Hospital Course Subjective Patient's hand and arm have improved significantly since yesterday but still swollen, complains of right hip pain Objective Physical exam General: Patient is laying in bed and answers questions appropriately Mentation: Patient is alert and oriented 4, Head: Normocephalic atraumatic Eyes: EOMI, pupils reactive to light Neck: Supple, nontender, midline Respiratory: Clear to auscultation bilaterally Cardiovascular: regular rate, no obvious murmurs Gastrointestinal: non-tender to palpation, bowel sounds heard. Neurological: Moves all extremities spontaneously, decreased right lower extremity movement secondary to hip pain Skin: Patient's left hand and forearm significantly swollen and erythematous, tender to palpation Assessment and plan Left upper extremity, forearm and hand cellulitis, improving -Broad-spectrum IV antibiotic -X-rays showing soft tissue swelling -Doppler venous and arterial studies unrevealing -Infectious disease consulted Right hip pain -Hip x-ray negative -CT ordered End-stage renal disease on hemodialysis -Nephrology consulted -Patient on Sunday, , Sunday schedule Rheumatoid arthritis -Confirmed patient's dose of 107 mg of methadone, will also use other PRN medications Hypertension -Patient not on any medications at home however will continue to monitor Iron deficiency anemia -Continue iron supplements Anxiety -Continue home clonazepam as needed GERD -Continue PPI Disposition -Continue IV antibiotics, patient's arm is improving significantly, awaiting CT of the hip. ANDRE PEARSON March 05, 2019 14:18
[2019-03-05] MEDS ORDERED: EPOETIN ALFA-EPBX (NON-ESRD 10,000 UNIT/ML VIAL SC SCH (17:00)
--- NOTE | 2019-03-05 20:10 | CONS ---
DATE OF ADMISSION: 03/04/2019 DATE OF CONSULTATION: 03/05/2019 TYPE OF CONSULTATION: Infectious disease for Hipolito Ellis MD. REQUESTING PHYSICIAN: Bandar Damon MD HISTORY OF PRESENT ILLNESS: The patient is a 63-year-old white female who was admitted on 03/04/2019 with a 4-day history of a swelling and redness of her left arm which is recurrent. The patient has fistula in the upper arm because she has diabetic renal disease. She has had no dialysis in 4 days w hen she arrived here. She also has had a history of recurrent cellulitis in the left upper extremity . Along with the development of this since going back to 2014 during these admissions, it has been n oted that her white count has been relatively low with gradual decrease in the number of polymorphonu clear leukocytes and an increase in lymphocytes. On admission this time, her white count was 5800, 1 % polys, 4% bands, 70% lymphocytes, 23 monocytes. Platelet count was normal. C-reactive protein was 22.1. ESR 107. Hemoglobin 10.9. The patient has not had any temperature elevation and that she garcia s not cultured anything from some of the most recent admissions going back to 2014. X-rays of her up per arms show soft tissue swelling. PAST MEDICAL HISTORY: Rheumatoid arthritis, end-stage renal disease, diabetes mellitus, Crohn's dise ase, gastroesophageal reflux, history of extrusion of breast implant, left hand, arm cellulitis recur rent. PHYSICAL EXAMINATION GENERAL: Reveals ____ white female lying in the right lateral decubitus with her left arm not elevat ed and matter of fact her hand is at the lowest point. VITAL SIGNS: Stable. HEENT: Pupils are constricted and react to light. NECK: No jugular venous distention. CHEST: Clear. HEART: Regular. ABDOMEN: Soft. The patient complains of generalized pain as she has not had her methadone which is approximately 60 to 100 mg a day listing being ____ for some time because it is necessary to contact her methadone program. EXTREMITIES: The patient has no pedal edema. NEUROLOGIC: Grossly intact. INITIAL IMPRESSION: 1. Cellulitis, left arm, recurrent. 2. Chronic lymphocytic leukemia. 3. Diabetes mellitus. 4. End-stage renal disease. 5. Opioid addiction. 6. Rheumatoid arthritis. 7. Crohn's disease. RECOMMENDATIONS: I would elevate the patient's arm at all times. Continue treatment with vancomycin to cover for streptococci with cefazolin. Obtain dialysis as soon as possible and suggest hematolog ic consultation. Thank you for referring this interesting patient to Dr. Ellis. Dictated By: Teri SINGH MD EC/NTS Conf#: [id number] DID#: [id number] CC: BANDAR DAMON MD;*EndCC*
[2019-03-06 02:19] VITALS: BP 108/60; PULSE 110; RESP 16
[2019-03-06] MEDS: morphine 4 MG/ML VIAL IV PRN (03:44)
[2019-03-06] MEDS: CEFAZOLIN 1 GM/50 ML (PMX) 50 ML IVPB SCH ×3 (06:10→21:46)
[2019-03-06] MEDS: PANTOPRAZOLE (EC) 40 MG TAB PO SCH (06:10)
[2019-03-06] MEDS: morphine 2 MG INJ IV PRN ×2 (06:23→19:45)
[2019-03-06] MEDS: SEVELAMER CARBONATE 800 MG TABLET PO SCH ×3 (07:50→18:31)
[2019-03-06 07:57] VITALS: BP 110/63; PULSE 100; RESP 18
--- NOTE | 2019-03-06 08:34 | PN ---
DATE: 03/06/2019 SUBJECTIVE: The patient is stable, no events overnight. No fevers, chills, nausea, vomiting. OBJECTIVE: VITAL SIGNS: Blood pressure is 110/63, pulse 100, respirations 18, temperature 98.0. HEENT: Head is normocephalic. NECK: Supple. HEART: Regular rate. LUNGS: Show diminished breath sounds at the base. ABDOMEN: Soft, nontender to palpation without rebound or guarding. EXTREMITIES: Negative for clubbing, cyanosis, no edema. DERMATOLOGIC: No rashes. MUSCULOSKELETAL: The patient has decreased swelling of the left hand. NEUROLOGIC: No focal deficits. MEDICATIONS: Reviewed. LABORATORY DATA: Reviewed. ASSESSMENT AND PLAN: 1. End-stage renal disease. The patient had hemodialysis yesterday, tolerated well. Plan for dialy sis again tomorrow. 2. Anemia. Continue to monitor hemoglobin and hematocrit levels. Will give Epogen as needed. 3. Mineral bone disorder, monitor calcium and phosphorus levels. 4. Hyperkalemia, resolved. Continue dialysis on low potassium bath. 5. Left arm cellulitis. Continue current antibiotic regimen. Follow up infectious disease. 6. Hypertension. Continue current blood pressure regimen. 7. History of rheumatoid arthritis. 8. Anxiety disorder. Continue medical management. Dictated By: IMELDA PEREIRA DO NR/NTS Conf#: [id number] DID#: [id number] CC: ANDRE PEARSON MD;*EndCC*
[2019-03-06] MEDS: FERROUS SULFATE (EC) 325 MG TAB PO SCH ×2 (11:15→20:35)
[2019-03-06] MEDS: METHADONE 1 MG/ML (ORAL SOLN) PO SCH (11:16)
[2019-03-06 14:31] VITALS: BP 112/66; PULSE 99; RESP 18
[2019-03-06] MEDS ORDERED: VANCOMYCIN 1 GM 250 ML IVPB SCH (15:00)
--- NOTE | 2019-03-06 15:07 | PN ---
Date/Time of Note Date/Time of Note DATE: 03/06/19 TIME: 15:05 Objective Vitals Vital Signs Date Temp Pulse Resp B/P (MAP) Pulse Ox O2 O2 Flow FiO2 Time Delivery Rate 03/06/19 97.8 99 18 112/66 93 Nasal 2.0 14:31 (81) Cannula Intake and Output 03/05/19 03/05/19 03/06/19 1515:00 23:00 07:00 IntakeIntake Total 370 ml 410 ml 50 ml OutputOutput Total 2650 ml BalanceBalance 370 ml -2240 ml 50 ml Results Result Diagram: 03/06/19 0455 03/06/19 0455 Medications Medications Current Medications IV Flush (NS 3 ml) 3 ml PER PROTOCOL IV ; Start 03/04/19 at 14:30 Ondansetron HCl (Zofran Inj) 4 mg Q6H PRN IV NAUSEA/VOMITING; Start 03/04/19 at 14:30 Acetaminophen (Tylenol Tab) 650 mg Q6H PRN PO .PAIN 1-3 OR TEMP Last administered on 03/05/19at 03:32; Admin Dose 650 MG; Start 03/04/19 at 14:30 Docusate Sodium (Colace) 100 mg Q12H PRN PO .CONSTIPATION; Start 03/04/19 at 14:30 Bisacodyl (Dulcolax) 5 mg DAILY PRN PO .CONSTIPATION; Start 03/04/19 at 14:30 Vancomycin HCl (Vanco Iv Per Pharmacy) VANCOMYCIN PER PHARMACY PER PROTOCOL XX ; Start 03/04/19 at 14:30 Oxycodone HCl (Roxicodone) 15 mg Q6H PRN PO MODERATE PAIN LEVEL 4-6 Last administered on 03/05/19at 16:58; Admin Dose 15 MG; Start 03/04/19 at 15:00 Clonazepam (Klonopin) 1 mg QHS PRN PO ANXIETY; Start 03/04/19 at 15:00 Ferrous Sulfate (Ferrous Sulfate (Ec)) 325 mg BID PO Last administered on 03/06/19at 11:15; Admin Dose 325 MG; Start 03/04/19 at 21:00 Sevelamer Carbonate (Renvela) 4,000 mg WITH MEALS PO Last administered on 03/06/19at 11:16; Admin Dose 4,000 MG; Start 03/04/19 at 17:55 Pantoprazole (Protonix Tab) 40 mg DAILY@06 PO Last administered on 03/06/19at 06:10; Admin Dose 40 MG; Start 03/05/19 at 06:00 Methadone HCl (Methadone) 107 mg DAILY PO Last administered on 03/06/19at 11:16; Admin Dose 107 MG; Start 03/05/19 at 12:00 Epoetin Jourdan-epbx (Retacrit (Non-Esrd)) 10,000 unit MoWeFr@1700 SC ; Start 03/05/19 at 17:00; Status Hold Cefazolin Sodium 50 ml @ 100 mls/hr Q8 IVPB Last administered on 03/06/19at 06:10; Admin Dose 100 MLS/HR; Start 03/05/19 at 06:00; Stop 03/11/19 at 18:00 Morphine Sulfate (morphine) 2 mg Q4H PRN IV .PAIN 7-10 Last administered on 03/06/19at 06:23; Admin Dose 2 MG; Start 03/06/19 at 04:03 Vancomycin HCl 250 ml @ 125 mls/hr ONCE IVPB ; Start 03/06/19 at 15:00; Stop 03/06/19 at 16:59 VTE Prophylaxis Risk score (from Ns)>0 risk: 3 SCD applied (from Ns): Yes Lines/Catheters IV Catheter Type: Britt in Place: No Assessment/Plan Hospital Course Subjective Patient's hand continues to mildly improve Objective Physical exam General: Patient is laying in bed and answers questions appropriately Mentation: Patient is alert and oriented 4, Head: Normocephalic atraumatic Eyes: EOMI, pupils reactive to light Neck: Supple, nontender, midline Respiratory: Clear to auscultation bilaterally Cardiovascular: regular rate, no obvious murmurs Gastrointestinal: non-tender to palpation, bowel sounds heard. Neurological: Moves all extremities spontaneously, decreased right lower extremity movement secondary to hip pain Skin: Patient's left hand and forearm significantly swollen and erythematous, tender to palpation Assessment and plan Left upper extremity, forearm and hand cellulitis versus vascular outlet obstruction, improving -Broad-spectrum IV antibiotic -X-rays showing soft tissue swelling -Doppler venous and arterial studies unrevealing, consulted vascular surgeon, fistulogram ordered for tomorrow a.m. -Infectious disease consulted Right hip pain -Hip x-ray negative -CT ordered, showing degenerative disease with osseous involvement, will introduce patient to orthopedic surgeon before discharge for outpatient follow- up End-stage renal disease on hemodialysis -Nephrology consulted -Patient on Sunday, , Sunday schedule Rheumatoid arthritis -Confirmed patient's dose of 107 mg of methadone, will also use other PRN medications Hypertension -Patient not on any medications at home however will continue to monitor Iron deficiency anemia -Continue iron supplements Anxiety -Continue home clonazepam as needed GERD -Continue PPI Disposition -Continue IV antibiotics, fistulogram ordered for tomorrow per vascular surgeon ANDRE PEARSON March 06, 2019 15:07
--- NOTE | 2019-03-06 15:21 | CONS ---
Assessment/Plan Assessment/Plan Hospital Course (Demo Recall) 1300 Patient is alert looks comfortable with left upper extremity swelling markedly improved and she is able now to move her fingers. WBC 5 platelets 339 Microbiology: Blood cultures remain negative Chest x-ray on admission revealed mild bibasilar atelectatic changes. Left upper extremity ultrasou. Indwelling's left upper extremity AV fistula nd revealed no evidence for DVT arterial study was unremarkable Antimicrobials: Ancef, Vanco Physical examination: This is a fragile well-developed elderly woman who is awake in no distress. Head atraumatic normocephalic neck is supple chest rise symmetrical breath sounds diminished bases heart: S1-S2. Abdomen soft bowel sounds present. Extremities with left wrist and hand swelling erythema swelling also extends a little bit higher to her elbow, AV fistula patent Assessment: 1. Systemic inflammatory response syndrome 2. Left upper extremity cellulitis 3. End-stage renal disease, hemodialysis dependent 4. Rheumatoid arthritis 5. Anemia 6. Hypertension Plan: Patient is stable left upper extremity looks better, continue abx, keep left upper extremity elevated Consultation Date/Type/Reason Admit Date/Time March 04, 2019 at 14:26 Initial Consult Date Type of Consult id Date/Time of Note DATE: 03/06/19 TIME: 15:20 Exam/Review of Systems Exam Vitals Vital Signs Date Temp Pulse Resp B/P (MAP) Pulse Ox O2 O2 Flow FiO2 Time Delivery Rate 03/06/19 97.8 99 18 112/66 93 Nasal 2.0 14:31 (81) Cannula Intake and Output 03/05/19 03/05/19 03/06/19 1515:00 23:00 07:00 IntakeIntake Total 370 ml 410 ml 50 ml OutputOutput Total 2650 ml BalanceBalance 370 ml -2240 ml 50 ml Results Result Diagram: 03/06/19 0455 03/06/19 0455 Results 24hrs Laboratory Tests Test 03/06/19 04:55 White Blood Count 5.0 Red Blood Count 3.33 L Hemoglobin 10.2 L Hematocrit 31.7 L Mean Corpuscular Volume 95.2 Mean Corpuscular Hemoglobin 30.6 Mean Corpuscular Hemoglobin Concent 32.2 Red Cell Distribution Width 17.2 H Platelet Count 339 Mean Platelet Volume 10.7 H Immature Granulocytes % 0.400 Neutrophils % 1.8 L Lymphocytes % 65.7 H Monocytes % 31.3 H Eosinophils % 0.0 Basophils % 0.8 Nucleated Red Blood Cells % 0.0 Immature Granulocytes # 0.020 Neutrophils # 0.1 L Lymphocytes # 3.3 H Monocytes # 1.6 H Eosinophils # 0.0 Basophils # 0.0 Nucleated Red Blood Cells # 0.0 Sodium Level 138 Potassium Level 4.5 Chloride Level 101 Carbon Dioxide Level 29 Anion Gap 8 # Blood Urea Nitrogen 39 #H Creatinine 5.64 #H Est Glomerular Filtrat Rate mL/min 8 L Glucose Level 106 Calcium Level 8.8 Phosphorus Level 4.8 Magnesium Level 1.7 Random Vancomycin Level 12.9 Medications Medication Current Medications IV Flush (NS 3 ml) 3 ml PER PROTOCOL IV ; Start 03/04/19 at 14:30 Ondansetron HCl (Zofran Inj) 4 mg Q6H PRN IV NAUSEA/VOMITING; Start 03/04/19 at 14:30 Acetaminophen (Tylenol Tab) 650 mg Q6H PRN PO .PAIN 1-3 OR TEMP Last administered on 03/05/19at 03:32; Admin Dose 650 MG; Start 03/04/19 at 14:30 Docusate Sodium (Colace) 100 mg Q12H PRN PO .CONSTIPATION; Start 03/04/19 at 14:30 Bisacodyl (Dulcolax) 5 mg DAILY PRN PO .CONSTIPATION; Start 03/04/19 at 14:30 Vancomycin HCl (Vanco Iv Per Pharmacy) VANCOMYCIN PER PHARMACY PER PROTOCOL XX ; Start 03/04/19 at 14:30 Oxycodone HCl (Roxicodone) 15 mg Q6H PRN PO MODERATE PAIN LEVEL 4-6 Last administered on 03/05/19at 16:58; Admin Dose 15 MG; Start 03/04/19 at 15:00 Clonazepam (Klonopin) 1 mg QHS PRN PO ANXIETY; Start 03/04/19 at 15:00 Ferrous Sulfate (Ferrous Sulfate (Ec)) 325 mg BID PO Last administered on 03/06/19at 11:15; Admin Dose 325 MG; Start 03/04/19 at 21:00 Sevelamer Carbonate (Renvela) 4,000 mg WITH MEALS PO Last administered on at 11:16; Admin Dose 4,000 MG; Start 03/04/19 at 17:55 Pantoprazole (Protonix Tab) 40 mg DAILY@06 PO Last administered on 03/06/19at 06:10; Admin Dose 40 MG; Start 03/05/19 at 06:00 Methadone HCl (Methadone) 107 mg DAILY PO Last administered on 03/06/19at 11:16; Admin Dose 107 MG; Start 03/05/19 at 12:00 Epoetin Jourdan-epbx (Retacrit (Non-Esrd)) 10,000 unit MoWeFr@1700 SC ; Start 03/05/19 at 17:00; Status Hold Cefazolin Sodium 50 ml @ 100 mls/hr Q8 IVPB Last administered on 03/06/19at 06:10; Admin Dose 100 MLS/HR; Start 03/05/19 at 06:00; Stop 03/11/19 at 18:00 Morphine Sulfate (morphine) 2 mg Q4H PRN IV .PAIN 7-10 Last administered on 03/06/19at 06:23; Admin Dose 2 MG; Start 03/06/19 at 04:03 Vancomycin HCl 250 ml @ 125 mls/hr ONCE IVPB ; Start 03/06/19 at 15:00; Stop 03/06/19 at 16:59 LATOYA SILVERMAN NP March 06, 2019 15:21
[2019-03-06 19:30] VITALS: BP 114/65; PULSE 97; RESP 18
[2019-03-06] MEDS: clonAZEPAM 0.5 MG TAB PO PRN (20:35)
[2019-03-06] MEDS: ACETAMINOPHEN 325 MG TAB PO PRN (23:08)
[2019-03-07] VITALS (19 sets, daily range): BP systolic 94–146; BP diastolic 64–83; PULSE 68–106; RESP 16–18
[2019-03-07] MEDS: morphine 2 MG INJ IV PRN ×2 (03:09→20:07)
[2019-03-07] MEDS: oxyCODONE 15 MG TAB PO PRN ×2 (04:46→23:11)
[2019-03-07] MEDS ORDERED: HYDROmorphONE 1 MG/ML SYG IV ONE (04:52)
[2019-03-07] MEDS: PANTOPRAZOLE (EC) 40 MG TAB PO SCH (06:14)
[2019-03-07] MEDS: CEFAZOLIN 1 GM/50 ML (PMX) 50 ML IVPB SCH ×3 (06:15→20:03)
[2019-03-07] MEDS ORDERED: FENTAnyl 50 MCG/ML VIAL ONE (07:06)
[2019-03-07] MEDS ORDERED: IODIXANOL LOCM 100 ML BTL ONE (07:06)
[2019-03-07] MEDS ORDERED: LIDOCAINE 1% (MDV) 20 ML INJ ONE (07:06)
[2019-03-07] MEDS ORDERED: MIDAZOLAM 1 MG/ML 2 ML INJ ONE (07:06)
[2019-03-07] MEDS ORDERED: HEPARIN 1000 UNITS/ML 10 ML INJ ONE ×2 (07:06→07:52)
[2019-03-07] MEDS ORDERED: HEPARIN 1000 UNITS/NS (A-LINE) 1,000 ML ONE (07:06)
[2019-03-07] MEDS: SEVELAMER CARBONATE 800 MG TABLET PO SCH ×3 (07:50→17:52)
[2019-03-07] MEDS ORDERED: SOD CHLORIDE 0.9% 500 ML ONE (07:53)
--- NOTE | 2019-03-07 08:05 | CONS ---
DATE OF ADMISSION: 03/04/2019 DATE OF CONSULTATION: 03/07/2019 REASON FOR CONSULTATION: Left arm edema. Left arm AV fistula. HISTORY OF PRESENT ILLNESS: This is a 63-year-old woman. She has end-stage renal disease. She has been on dialysis for several years. 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 She came to the ER several days ago with left ar m swelling. It was originally thought to be cellulitis. She has been on some IV antibiotics, but garcia s not resolved. Dr. Andre Damon called me to evaluate her. Her fistula has been working well, has goo d thrill but she is edematous in the forearm and hand. She says she has had previous interventions o n the fistula in the past. The last was several months ago. PAST MEDICAL HISTORY: Again, is significant for end-stage renal disease, hypertension and rheumatoid arthritis. She is not diabetic. PAST SURGICAL HISTORY: Significant for the AV fistula placement, left arm she is is not really sure how long it was done. It was not done by anyone in the community here. MEDICATIONS: Consist of: 1. Subcutaneous heparin. 2. Methadone. 3. Iron. 4. Renvela. 5. Klonopin. 6. Zofran. 7. Tylenol. 8. Colace. SOCIAL HISTORY: She is a nonsmoker. She does not drink or use any illicit drugs. She lives in [place]. FAMILY HISTORY: Noncontributory. REVIEW OF SYSTEMS: She currently denies any chest pain, shortness of breath, nausea, vomiting, diarr hea. No fever, no chills, no recent weight gain or weight loss. No abdominal or back pain. Her onl y complaint really is left arm swelling and discomfort. PHYSICAL EXAMINATION: GENERAL: She is an elderly woman. She speaks Swedish. She is in no acute distress. VITAL SIGNS: She has been afebrile. Blood pressure is 127/64, heart rate 89, respiratory rate is 18 . She is 96% sat on room air. NECK: She has 2+ carotid, radial and brachial pulses bilaterally. EXTREMITIES: She has a left upper arm AV fistula, has a good thrill. No sign of any cuts or ulcerat ions. There is no erythema. There is edema in the left forearm and hand. It is moderately tender. No redness, does not appear there is cellulitis clinically. LUNGS: Clear. HEART: Regular rate and rhythm. ABDOMEN: Soft, nontender, nondistended. MUSCULOSKELETAL: She has 2+ femoral, popliteal and DP pulses bilaterally. He has no leg edema and n o leg ulcers. LABORATORY DATA: White count has been normal, essentially all her labs are normal except the crease of her creatinine. She had a venous duplex of the left arm that showed no DVT and the graft has good flow and is patent. 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 We are going to do a fistulogram and treat the stenosis. She can follow up with me in the future. I gave her my car d and I can see her in the next week or so to remove the stitch and I will follow her in the future i f this tends to recur. Dictated By: TORNI FUCHS/AYDEN Conf#: [id number] DID#: [id number] CC: IMELDA PEREIRA DO; ANDRE DAMON MD;*EndCC*
--- NOTE | 2019-03-07 08:23 | SIPON ---
Date/Time of Note Date/Time of Note DATE: 03/07/19 TIME: 08:22 Operative Report Preoperative Diagnosis L arm edema Postoperative Diagnosis same Operation/Procedure Performed L arm AV fistulagram, PTV severe stenosis of venous anastomosis to axillary vein (7x60 to 18 mike, 90% to 0 %) Surgeon see signature line programs assistant none Anesthesia: moderate sedation Estimated blood loss: minimal Transfusion Required none Specimen none Grafts/Implants none Complications none TORIN LUNA MD March 07, 2019 08:23
--- NOTE | 2019-03-07 08:28 | OPR ---
DATE OF OPERATION: 03/07/2019 PREOPERATIVE DIAGNOSIS: Left arm edema. POSTOPERATIVE DIAGNOSIS: Left arm edema. PROCEDURE PERFORMED: Left arm arteriovenous fistulogram and percutaneous venoplasty of severe stenos is of the venous anastomosis. SURGEON: Torin Butcher MD ANESTHESIA: Local anesthesia. ESTIMATED BLOOD LOSS: Minimal. COMPLICATIONS: No intraprocedural complications. INDICATIONS: This is a 63-year-old woman with end-stage renal disease on dialysis for several years via left upper arm AV graft. She has had some fairly severe swelling in the forearm and hand for abo ut 5 to 6 days, the graft has a good thrill, but the edema is persistent. There are no signs of infe ction. So I brought her for a fistulogram. There was severe stenosis at the venous anastomosis at t he top of the outflow the venous anastomosis was stenotic distal to the anastomosis. There is still retrograde flow down into the arm from the more proximal portion of the venous anastomosis which I tr eated. DESCRIPTION OF PROCEDURE: The patient was brought to the laborer concrete paving, placed on the table in supine pos ition. Left arm was prepped and draped in the usual sterile fashion. I began by infiltrating over t he graft just above the elbow using about 5 mL of 1% Xylocaine. I used ultrasound to identify the gr aft and then used a micropuncture needle to enter the graft. Under ultrasound guidance an 0.018 wire was inserted through the needle into the graft and a micropuncture sheath was advanced over the wire into the graft. I then did a fistulogram through the micropuncture sheath. The findings of the fis tulogram, the arterial anastomosis was widely patent from the brachial artery. The graft itself is p atent. The venous anastomosis of the graft to the axillary vein in the upper arm has a severe stenos is to greater than 90% and at the outflow, but there was retrograde flow coming back toward the hand through the same vein, but it was patent going toward the hand but with severe stenosis going toward the shoulder. The central veins were all large but patent. I then advanced a Glidewire through the micropuncture sheath and into the central veins. Exchanged a micropuncture sheath for a 5-Sudanese she ath over the wire then used a 7 mm x 6 cm high pressure balloon to treat the venous anastomosis up to 18 atmospheres. There was no residual stenosis. There was a good thrill in the graft. I removed t he catheter sheaths and wires and put a 4-0 Monocryl pursestring suture on the puncture site. Steril e dressing was applied and Jason wraps applied. She tolerated the procedure well without any complicat ion, was transferred back to her room in stable condition. Dictated By: TORIN FCUHS/AYDEN Conf#: [id number] DID#: [id number] CC: ANDRE PEARSON MD; IMELDA PEREIRA DO;*EndCC*
--- NOTE | 2019-03-07 08:40 | PN ---
DATE: 03/07/2019 SUBJECTIVE: The patient is stable, no events overnight. No fevers, chills, nausea or vomiting. OBJECTIVE: VITAL SIGNS: Blood pressure is 127/64, respirations 18, pulse 89, temperature 98.0. HEENT: Head is normocephalic. NECK: Supple. HEART: Regular rate. LUNGS: Show diminished breath sounds at the base. ABDOMEN: Soft, nontender to palpation without rebound or guarding. EXTREMITIES: Negative for clubbing, cyanosis. DERMATOLOGIC: No rashes. MUSCULOSKELETAL: The patient's left upper extremity swelling is improving. NEUROLOGIC: No change in exam. MEDICATIONS: Reviewed. LABORATORY DATA: Reviewed. ASSESSMENT: 1. End-stage renal disease. Plan is for hemodialysis today. We will dialyze 3 hours 2k bath, calci um 2.5. 2. Anemia. Continue to monitor hemoglobin and hematocrit levels. We will give Epogen as needed. 3. Mineral bone disorder, monitor calcium and phosphorus levels. 4. Hyperkalemia, resolved. 5. Left arm cellulitis. Continue current antibiotic regimen. Follow up with infectious disease. 6. Hypertension. Continue current blood pressure regimen. 7. History of rheumatoid arthritis. 8. Anxiety disorder. Continue medical management. Dictated By: IMELDA PEREIRA DO NR/NTS Conf#: [id number] DID#: [id number] CC: ANDRE PEARSON MD;*EndCC*
[2019-03-07] MEDS: FERROUS SULFATE (EC) 325 MG TAB PO SCH ×2 (11:04→20:03)
[2019-03-07] MEDS: METHADONE 1 MG/ML (ORAL SOLN) PO SCH (11:05)
--- NOTE | 2019-03-07 11:27 | PN ---
Date/Time of Note Date/Time of Note DATE: 03/07/19 TIME: 11:24 Objective Vitals Vital Signs Date Temp Pulse Resp B/P (MAP) Pulse Ox O2 O2 Flow FiO2 Time Delivery Rate 03/07/19 92 11:00 03/07/19 16 143/79 98 Room Air 10:06 (100) 03/07/19 98.7 08:15 03/06/19 2.0 14:31 Intake and Output 03/06/19 03/06/19 03/07/19 1515:00 23:00 07:00 IntakeIntake Total 560 ml 670 ml 50 ml BalanceBalance 560 ml 670 ml 50 ml Results Result Diagram: 03/07/19 0446 03/07/19 0446 Medications Medications Current Medications IV Flush (NS 3 ml) 3 ml PER PROTOCOL IV ; Start 03/04/19 at 14:30 Ondansetron HCl (Zofran Inj) 4 mg Q6H PRN IV NAUSEA/VOMITING; Start 03/04/19 at 14:30 Acetaminophen (Tylenol Tab) 650 mg Q6H PRN PO .PAIN 1-3 OR TEMP Last administered on 03/06/19at 23:08; Admin Dose 650 MG; Start 03/04/19 at 14:30 Docusate Sodium (Colace) 100 mg Q12H PRN PO .CONSTIPATION; Start 03/04/19 at 14:30 Bisacodyl (Dulcolax) 5 mg DAILY PRN PO .CONSTIPATION; Start 03/04/19 at 14:30 Vancomycin HCl (Vanco Iv Per Pharmacy) VANCOMYCIN PER PHARMACY PER PROTOCOL XX ; Start 03/04/19 at 14:30 Oxycodone HCl (Roxicodone) 15 mg Q6H PRN PO MODERATE PAIN LEVEL 4-6 Last administered on 03/07/19at 04:46; Admin Dose 15 MG; Start 03/04/19 at 15:00 Clonazepam (Klonopin) 1 mg QHS PRN PO ANXIETY Last administered on 03/06/19at 20:35; Admin Dose 1 MG; Start 03/04/19 at 15:00 Ferrous Sulfate (Ferrous Sulfate (Ec)) 325 mg BID PO Last administered on 03/07/19at 11:04; Admin Dose 325 MG; Start 03/04/19 at 21:00 Sevelamer Carbonate (Renvela) 4,000 mg WITH MEALS PO Last administered on 03/07/19at 11:04; Admin Dose 4,000 MG; Start 03/04/19 at 17:55 Pantoprazole (Protonix Tab) 40 mg DAILY@06 PO Last administered on 03/07/19at 06:14; Admin Dose 40 MG; Start 03/05/19 at 06:00 Methadone HCl (Methadone) 107 mg DAILY PO Last administered on 03/07/19at 11:05; Admin Dose 107 MG; Start 03/05/19 at 12:00 Epoetin Jourdan-epbx (Retacrit (Non-Esrd)) 10,000 unit MoWeFr@1700 SC ; Start 03/05/19 at 17:00; Status Hold Cefazolin Sodium 50 ml @ 100 mls/hr Q8 IVPB Last administered on 03/07/19at 06:15; Admin Dose 100 MLS/HR; Start 03/05/19 at 06:00; Stop 03/11/19 at 18:00 Morphine Sulfate (morphine) 2 mg Q4H PRN IV .PAIN 7-10 Last administered on 03/07/19at 03:09; Admin Dose 2 MG; Start 03/06/19 at 04:03 VTE Prophylaxis Risk score (from Nsg)>0 risk: 4 SCD applied (from Ns): Yes Lines/Catheters IV Catheter Type: Britt in Place: No Assessment/Plan Hospital Course Subjective Patient's hand has significant improvement Objective Physical exam General: Patient is laying in bed and answers questions appropriately Mentation: Patient is alert and oriented 4, Head: Normocephalic atraumatic Eyes: EOMI, pupils reactive to light Neck: Supple, nontender, midline Respiratory: Clear to auscultation bilaterally Cardiovascular: regular rate, no obvious murmurs Gastrointestinal: non-tender to palpation, bowel sounds heard. Neurological: Moves all extremities spontaneously, decreased right lower extremity movement secondary to hip pain Skin: Patient's left hand and forearm mildly tender Assessment and plan Left upper extremity, forearm and hand cellulitis with vascular stenosis improving -Status post fistulogram and ballooning of stenosis -Broad-spectrum IV antibiotic to continue as there is likely some residual cellulitis from the vascular stenosis -Infectious disease consulted Right hip pain -Hip x-ray negative -CT ordered, showing degenerative disease with osseous involvement, will introduce patient to orthopedic surgeon before discharge for outpatient follow- up, Dr. Patel saw patient and gave patient's card to patient however patient lost business card, will need to provide patient with phone number for Dr. Patel before discharge End-stage renal disease on hemodialysis -Nephrology consulted -Patient on Sunday, , Sunday schedule Rheumatoid arthritis -Confirmed patient's dose of 107 mg of methadone, will also use other PRN medications Hypertension -Patient not on any medications at home however will continue to monitor Iron deficiency anemia -Continue iron supplements Anxiety -Continue home clonazepam as needed GERD -Continue PPI Disposition -Continue IV antibiotics, monitor for arm improvement before discharge. ANDRE PEARSON March 07, 2019 11:27
--- NOTE | 2019-03-07 15:15 | CONS ---
Assessment/Plan Assessment/Plan Hospital Course (Demo Recall) No acute changes overnight patient is awake looks comfortable no fevers Microbiology: Blood cultures remain negative Chest x-ray on admission revealed mild bibasilar atelectatic changes. Left upper extremity ultrasou. Indwelling's left upper extremity AV fistula nd revealed no evidence for DVT arterial study was unremarkable Antimicrobials: Ancef, Vanco Physical examination: This is a fragile well-developed elderly woman who is awake in no distress. Head atraumatic normocephalic neck is supple chest rise symmetrical breath sounds diminished bases heart: S1-S2. Abdomen soft bowel sounds present. Extremities with left wrist and hand swelling erythema swelling also extends a little bit higher to her elbow, AV fistula patent Assessment: 1. Systemic inflammatory response syndrome 2. Left upper extremity cellulitis 3. End-stage renal disease, hemodialysis dependent 4. Rheumatoid arthritis 5. Anemia 6. Hypertension Plan: Stable, status post left upper extremity fistulogram with percutaneous venoplasty of severe stenosis of the venous anastomosis continue antibiotics, keep left upper extremity elevated, follow vascular surgery recommendations Consultation Date/Type/Reason Admit Date/Time March 04, 2019 at 14:26 Initial Consult Date Type of Consult id Date/Time of Note DATE: 03/07/19 TIME: 15:14 Exam/Review of Systems Exam Vitals Vital Signs Date Temp Pulse Resp B/P (MAP) Pulse Ox O2 O2 Flow FiO2 Time Delivery Rate 03/07/19 98.4 68 17 135/82 99 13:59 (99) 03/07/19 Room Air 12:54 03/06/19 2.0 14:31 Intake and Output 03/06/19 03/06/19 03/07/19 1515:00 23:00 07:00 IntakeIntake Total 560 ml 670 ml 50 ml BalanceBalance 560 ml 670 ml 50 ml Results Result Diagram: 03/07/19 0446 03/07/19 0446 Results 24hrs Laboratory Tests Test 03/07/19 04:46 White Blood Count 5.0 Red Blood Count 3.26 L Hemoglobin 9.8 L Hematocrit 30.9 L Mean Corpuscular Volume 94.8 Mean Corpuscular Hemoglobin 30.1 Mean Corpuscular Hemoglobin Concent 31.7 L Red Cell Distribution Width 17.2 H Platelet Count 371 Mean Platelet Volume 11.3 H Immature Granulocytes % 0.600 H Neutrophils % 4.2 L Lymphocytes % 68.7 H Monocytes % 25.9 H Eosinophils % 0.0 Basophils % 0.6 Nucleated Red Blood Cells % 0.0 Immature Granulocytes # 0.030 Neutrophils # 0.2 L Lymphocytes # 3.4 H Monocytes # 1.3 H Eosinophils # 0.0 Basophils # 0.0 Nucleated Red Blood Cells # 0.0 Sodium Level 138 Potassium Level 5.0 Chloride Level 101 Carbon Dioxide Level 26 Anion Gap 11 Blood Urea Nitrogen 51 H Creatinine 7.47 H Est Glomerular Filtrat Rate mL/min 5 L Glucose Level 90 Calcium Level 8.9 Phosphorus Level 4.9 Magnesium Level 1.7 Medications Medication Current Medications IV Flush (NS 3 ml) 3 ml PER PROTOCOL IV ; Start 03/04/19 at 14:30 Ondansetron HCl (Zofran Inj) 4 mg Q6H PRN IV NAUSEA/VOMITING; Start 03/04/19 at 14:30 Acetaminophen (Tylenol Tab) 650 mg Q6H PRN PO .PAIN 1-3 OR TEMP Last administered on 03/06/19at 23:08; Admin Dose 650 MG; Start 03/04/19 at 14:30 Docusate Sodium (Colace) 100 mg Q12H PRN PO .CONSTIPATION; Start 03/04/19 at 14:30 Bisacodyl (Dulcolax) 5 mg DAILY PRN PO .CONSTIPATION; Start 03/04/19 at 14:30 Vancomycin HCl (Vanco Iv Per Pharmacy) VANCOMYCIN PER PHARMACY PER PROTOCOL XX ; Start 03/04/19 at 14:30 Oxycodone HCl (Roxicodone) 15 mg Q6H PRN PO MODERATE PAIN LEVEL 4-6 Last administered on 03/07/19at 04:46; Admin Dose 15 MG; Start 03/04/19 at 15:00 Clonazepam (Klonopin) 1 mg QHS PRN PO ANXIETY Last administered on 03/06/19 20:35; Admin Dose 1 MG; Start 03/04/19 at 15:00 Ferrous Sulfate (Ferrous Sulfate (Ec)) 325 mg BID PO Last administered on 03/07/19 11:04; Admin Dose 325 MG; Start 03/04/19 at 21:00 Sevelamer Carbonate (Renvela) 4,000 mg WITH MEALS PO Last administered on 03/07/19 11:04; Admin Dose 4,000 MG; Start 03/04/19 at 17:55 Pantoprazole (Protonix Tab) 40 mg DAILY@06 PO Last administered on 03/07/19at 06:14; Admin Dose 40 MG; Start 03/05/19 at 06:00 Methadone HCl (Methadone) 107 mg DAILY PO Last administered on 03/07/19at 11:05; Admin Dose 107 MG; Start 03/05/19 at 12:00 Epoetin Jourdan-epbx (Retacrit (Non-Esrd)) 10,000 unit MoWeFr@1700 SC ; Start 03/05/19 at 17:00; Status Hold Cefazolin Sodium 50 ml @ 100 mls/hr Q8 IVPB Last administered on 03/07/19at 14:46; Admin Dose 100 MLS/HR; Start 03/05/19 at 06:00; Stop 03/11/19 at 18:00 Morphine Sulfate (morphine) 2 mg Q4H PRN IV .PAIN 7-10 Last administered on 03/07/19at 03:09; Admin Dose 2 MG; Start 03/06/19 at 04:03 LATOYA SILVERMAN NP March 07, 2019 15:15
[2019-03-07] MEDS: clonAZEPAM 0.5 MG TAB PO PRN (20:48)
[2019-03-08 01:40] VITALS: BP 117/66; PULSE 91; RESP 16
[2019-03-08] MEDS: CEFAZOLIN 1 GM/50 ML (PMX) 50 ML IVPB SCH (05:50)
[2019-03-08] MEDS: PANTOPRAZOLE (EC) 40 MG TAB PO SCH (05:50)
--- NOTE | 2019-03-08 08:17 | PN ---
DATE: 03/08/2019 SUBJECTIVE: The patient is stable. No events overnight. The patient's left arm swelling is improvi ng. OBJECTIVE: VITAL SIGNS: Blood pressure is 117/66, respirations 15, pulse 99, temperature 99.3. HEENT: Head is normocephalic. NECK: Supple. HEART: Regular rate. LUNGS: Show diminished breath sounds at the base. ABDOMEN: Soft, nontender to palpation, rebound or guarding. EXTREMITIES: Negative for clubbing, cyanosis, no edema. DERMATOLOGIC: No rashes. MUSCULOSKELETAL: The patient's left upper extremity swelling is improving. NEUROLOGIC: No focal deficits. MEDICATIONS: The patient's medications have been reviewed. LABORATORY DATA: Reviewed. ASSESSMENT AND PLAN: 1. End-stage renal disease. The patient had hemodialysis yesterday, tolerated well. Plan for dialy sis again tomorrow. 2. Anemia. Continue to monitor hemoglobin and hematocrit levels. Will give Epogen as needed. 3. Mineral bone disorder. Monitor calcium and phosphorus levels. 4. Hyperkalemia, resolved. 5. Left arm cellulitis, improving. Continue current antibiotic regimen. 6. Hypertension. Continue current blood pressure regimen. 7. History of rheumatoid arthritis. 8. Anxiety disorder. Continue to monitor. Dictated By: IMELDA PEREIRA DO NR/NTS Conf#: [id number] DID#: [id number] CC: ANDRE PEARSON MD;*EndCC*
[2019-03-08 08:31] VITALS: BP 100/59; PULSE 79; RESP 17
[2019-03-08] MEDS: FERROUS SULFATE (EC) 325 MG TAB PO SCH ×2 (09:00→20:36)
[2019-03-08] MEDS: SEVELAMER CARBONATE 800 MG TABLET PO SCH ×3 (09:01→17:50)
[2019-03-08] MEDS: METHADONE 1 MG/ML (ORAL SOLN) PO SCH (09:04)
--- NOTE | 2019-03-08 09:06 | PN ---
Date/Time of Note Date/Time of Note DATE: 03/08/19 TIME: 09:05 Assessment/Plan VTE Prophylaxis Risk score (from Nsg)>0 risk: 2 SCD applied (from Ns): Yes Pharmacological prophylaxis: NA/contraindicated Pharm contraindication: low risk/ambulating Lines/Catheters [facility] Saline Lock Urinary Cath still in place: No Assessment/Plan Hospital Course SUBJECTIVE: Left upper extremity pain well controlled. OBJECTIVE: Physical Exam General: Adequately build 63 year-old female lying in bed in no apparent distress. HEENT: Normocephalic, atraumatic. Eyes: Anicteric sclerae, conjunctivae clear. ENT: Nasal septum midline, oral mucosa moist. Neck supple. Respiratory: Bilaterally clear breath sounds. No use of accessory muscles of respiration. No adventitious breath sounds. Cardiovascular: S1, S2 heard. Regular rate and rhythm. Abdomen: Soft, nontender, and nondistended. Bowel sounds positive in all 4 quadrants. Genitourinary: Deferred. Extremities: No cyanosis, no clubbing. Peripheral pulses palpable. Left upper extremity edema with erythema. Neurologic: Cranial nerves II through XII grossly intact. The patient is awake, alert, and oriented. Labs & Vitals per chart ASSESSMENT & PLAN 63-year-old female with comorbidities including end-stage renal disease on hemodialysis, hypertension, GERD, anxiety, and rheumatoid arthritis who came to the emergency room with left upper extremity, forearm and hand cellulitis who was admitted to inpatient setting for further treatment and evaluation. 1. Left upper extremity cellulitis. -Continue antimicrobials as per ID. 2. Left upper extremity edema. -Status post left AV fistulogram and percutaneous venoplasty of severe stenosis of the venous anastomosis on 03/07/2019. 3. Hypertension. -Continue antihypertensives 4.. End-stage renal disease on hemodialysis. -Continue hemodialysis as per nephrology. 5. Chronic pain. -Continue pain medications including methadone. 6. Right hip pain. -CT scan showing moderate degenerative changes of the right sacroiliac joint. -Outpatient follow-up. 7. Anemia of chronic kidney disease -Epogen as per nephrology. 8. GERD. -Continue PPI. 9. Fluids, electrolytes, and nutrition. -Renal diet. 10. DVT prophylaxis. -B/L SCDs. 11. Plan. -Continue antimicrobials as per ID. -Discharge the patient home after hemodialysis on 03/09/2019. The patient was seen in collaboration with Dr. Myers. Result Diagram: 03/08/19 0441 03/08/19 0441 Results 24hrs Laboratory Tests Test 03/08/19 04:41 White Blood Count 4.2 L Red Blood Count 3.23 L Hemoglobin 9.8 L Hematocrit 30.7 L Mean Corpuscular Volume 95.0 Mean Corpuscular Hemoglobin 30.3 Mean Corpuscular Hemoglobin Concent 31.9 L Red Cell Distribution Width 17.1 H Platelet Count 359 Mean Platelet Volume 11.2 H Immature Granulocytes % 0.700 H Neutrophils % Segmented Neutrophils % (Manual) 3 L Band Neutrophils % (Manual) 4 Lymphocytes % Lymphocytes % (Manual) 67 H Reactive Lymphocytes % (Manual) 8 H Monocytes % Monocytes % (Manual) 15 H Eosinophils % Basophils % Basophils % (Manual) 2 Promyelocytes % (Manual) 1 H Nucleated Red Blood Cells % 0.0 Immature Granulocytes # 0.030 Neutrophils # Neutrophils # (Manual) 0.1 L Band Neutrophils # 0.1 Lymphocytes (Manual) 2.8 Lymphocytes # Reactive Lymphocytes # 0.3 H Monocytes # Monocytes # (Manual) 0.6 Eosinophils # Basophils # Basophils # (Manual) 0.0 Promyelocytes # 0.0 Nucleated Red Blood Cells # Giant Platelets 8 H Sodium Level 135 Potassium Level 4.5 Chloride Level 98 Carbon Dioxide Level 30 Anion Gap 7 Blood Urea Nitrogen 31 #H Creatinine 4.79 #H Est Glomerular Filtrat Rate mL/min 9 L Glucose Level 84 Calcium Level 8.6 Phosphorus Level 4.2 Magnesium Level 1.7 Random Vancomycin Level 19.3 Exam/Review of Systems Exam Vitals Vital Signs Date Temp Pulse Resp B/P (MAP) Pulse Ox O2 O2 Flow FiO2 Time Delivery Rate 03/08/19 97.6 79 17 100/59 95 08:31 (73) 03/07/19 Room Air 12:54 03/06/19 2.0 14:31 Intake and Output 03/07/19 03/07/19 03/08/19 1515:00 23:00 07:00 IntakeIntake Total 300 ml 250 ml OutputOutput Total 1900 ml 150 ml 100 ml BalanceBalance -1900 ml 150 ml 150 ml Results Results 24hrs Laboratory Tests Test 03/08/19 04:41 White Blood Count 4.2 L Red Blood Count 3.23 L Hemoglobin 9.8 L Hematocrit 30.7 L Mean Corpuscular Volume 95.0 Mean Corpuscular Hemoglobin 30.3 Mean Corpuscular Hemoglobin Concent 31.9 L Red Cell Distribution Width 17.1 H Platelet Count 359 Mean Platelet Volume 11.2 H Immature Granulocytes % 0.700 H Neutrophils % Segmented Neutrophils % (Manual) 3 L Band Neutrophils % (Manual) 4 Lymphocytes % Lymphocytes % (Manual) 67 H Reactive Lymphocytes % (Manual) 8 H Monocytes % Monocytes % (Manual) 15 H Eosinophils % Basophils % Basophils % (Manual) 2 Promyelocytes % (Manual) 1 H Nucleated Red Blood Cells % 0.0 Immature Granulocytes # 0.030 Neutrophils # Neutrophils # (Manual) 0.1 L Band Neutrophils # 0.1 Lymphocytes (Manual) 2.8 Lymphocytes # Reactive Lymphocytes # 0.3 H Monocytes # Monocytes # (Manual) 0.6 Eosinophils # Basophils # Basophils # (Manual) 0.0 Promyelocytes # 0.0 Nucleated Red Blood Cells # Giant Platelets 8 H Sodium Level 135 Potassium Level 4.5 Chloride Level 98 Carbon Dioxide Level 30 Anion Gap 7 Blood Urea Nitrogen 31 #H Creatinine 4.79 #H Est Glomerular Filtrat Rate mL/min 9 L Glucose Level 84 Calcium Level 8.6 Phosphorus Level 4.2 Magnesium Level 1.7 Random Vancomycin Level 19.3 Medications Medication Current Medications IV Flush (NS 3 ml) 3 ml PER PROTOCOL IV ; Start 03/04/19 at 14:30 Ondansetron HCl (Zofran Inj) 4 mg Q6H PRN IV NAUSEA/VOMITING; Start 03/04/19 at 14:30 Acetaminophen (Tylenol Tab) 650 mg Q6H PRN PO .PAIN 1-3 OR TEMP Last administered on 03/06/19at 23:08; Admin Dose 650 MG; Start 03/04/19 at 14:30 Docusate Sodium (Colace) 100 mg Q12H PRN PO .CONSTIPATION; Start 03/04/19 at 14:30 Bisacodyl (Dulcolax) 5 mg DAILY PRN PO .CONSTIPATION; Start 03/04/19 at 14:30 Vancomycin HCl (Vanco Iv Per Pharmacy) VANCOMYCIN PER PHARMACY PER PROTOCOL XX ; Start 03/04/19 at 14:30 Oxycodone HCl (Roxicodone) 15 mg Q6H PRN PO MODERATE PAIN LEVEL 4-6 Last administered on 03/07/19 23:11; Admin Dose 15 MG; Start 03/04/19 at 15:00 Clonazepam (Klonopin) 1 mg QHS PRN PO ANXIETY Last administered on 03/07/19 20:48; Admin Dose 1 MG; Start 03/04/19 at 15:00 Ferrous Sulfate (Ferrous Sulfate (Ec)) 325 mg BID PO Last administered on 20:03; Admin Dose 325 MG; Start 03/04/19 at 21:00 Sevelamer Carbonate (Renvela) 4,000 mg WITH MEALS PO Last administered on 03/07/19 17:52; Admin Dose 4,000 MG; Start 03/04/19 at 17:55 Pantoprazole (Protonix Tab) 40 mg DAILY@06 PO Last administered on 03/08/19 05:50; Admin Dose 40 MG; Start 03/05/19 at 06:00 Methadone HCl (Methadone) 107 mg DAILY PO Last administered on 03/07/19 11:05; Admin Dose 107 MG; Start 03/05/19 at 12:00 Epoetin Jourdan-epbx (Retacrit (Non-Esrd)) 10,000 unit MoWeFr@1700 SC ; Start 03/05/19 at 17:00; Status Hold Morphine Sulfate (morphine) 2 mg Q4H PRN IV .PAIN 7-10 Last administered on 03/07/19 20:07; Admin Dose 2 MG; Start 03/06/19 at 04:03 Vancomycin/Sodium Chloride 250 ml @ 125 mls/hr Q96H IVPB ; Start 03/09/19 at 14:00 Cefazolin Sodium 50 ml @ 100 mls/hr Q24H IVPB ; Start 03/09/19 at 06:00; Stop 03/11/19 at 11:00 KRISTEN MEDINA NP March 08, 2019 09:06
[2019-03-08] MEDS: morphine 2 MG INJ IV PRN ×2 (12:46→19:00)
[2019-03-08 15:55] VITALS: BP 114/69; PULSE 86; RESP 86
--- NOTE | 2019-03-08 18:42 | CONS ---
Assessment/Plan Assessment/Plan Hospital Course (Demo Recall) ID PROGRESS NOTE CURRENT ABX: DAY #=>Vanco IV + Ancef 24H INTERVAL SUMMARY * Testing in bed watching tV, "OK", no fever, VSS, NAD, no complaints offered * HD planned for tomorrow per CLERICAL SUPERVISOR * Chest x-ray on admission revealed mild bibasilar atelectatic changes. * Left upper extremity ultrasound==> Indwelling's left upper extremity AV fistula nd revealed no evidence for DVT arterial study was unremarkable MICRO/OTHER * 03/04/19 BCX (-) PHYSICAL EXAMINATION: GENERAL: VSS, NAD, HEENT: AT, NC, NECK: WNL CHEST: Equal chest rise bilaterally without dyspnea on observation ABD: Soft, ND EXTREMITIES: Warm, dry = left wrist and hand swelling erythema swelling also extends a little bit higher to her elbow, AV fistula patent SKIN: No rash, no diaphoresis ID ASSESSMENT 63 yo F admit with: 1. Systemic inflammatory response syndrome 2. Left upper extremity cellulitis w/lymphedema 3. End-stage renal disease, hemodialysis dependent 4. Rheumatoid arthritis 5. Anemia 6. Hypertension ABX ALLERGIES: Bactrim/Sulfa INVASIVES: PIV CURRENT ABX: DAY # =>Vanco IV + Ancef ID RECOMMENDATIONS/PLAN: 1. Continue current ABX 2. Will be covering "[employer]" over the 3-day holiday weekend. . Consultation Date/Type/Reason Admit Date/Time March 04, 2019 at 14:26 Initial Consult Date Date/Time of Note DATE: 03/08/19 TIME: 18:42 Exam/Review of Systems Exam Vitals Vital Signs Date Temp Pulse Resp B/P (MAP) Pulse Ox O2 O2 Flow FiO2 Time Delivery Rate 03/08/19 98.5 86 86 114/69 96 15:55 (84) 03/07/19 Room Air 12:54 03/06/19 2.0 14:31 Intake and Output 03/07/19 03/07/19 03/08/19 1515:00 23:00 07:00 IntakeIntake Total 300 ml 250 ml OutputOutput Total 1900 ml 150 ml 100 ml BalanceBalance -1900 ml 150 ml 150 ml Results Result Diagram: 03/08/19 0441 03/08/19 0441 Results 24hrs Laboratory Tests Test 03/08/19 04:41 White Blood Count 4.2 L Red Blood Count 3.23 L Hemoglobin 9.8 L Hematocrit 30.7 L Mean Corpuscular Volume 95.0 Mean Corpuscular Hemoglobin 30.3 Mean Corpuscular Hemoglobin Concent 31.9 L Red Cell Distribution Width 17.1 H Platelet Count 359 Mean Platelet Volume 11.2 H Immature Granulocytes % 0.700 H Neutrophils % Segmented Neutrophils % (Manual) 3 L Band Neutrophils % (Manual) 4 Lymphocytes % Lymphocytes % (Manual) 67 H Reactive Lymphocytes % (Manual) 8 H Monocytes % Monocytes % (Manual) 15 H Eosinophils % Basophils % Basophils % (Manual) 2 Promyelocytes % (Manual) 1 H Nucleated Red Blood Cells % 0.0 Immature Granulocytes # 0.030 Neutrophils # Neutrophils # (Manual) 0.1 L Band Neutrophils # 0.1 Lymphocytes (Manual) 2.8 Lymphocytes # Reactive Lymphocytes # 0.3 H Monocytes # Monocytes # (Manual) 0.6 Eosinophils # Basophils # Basophils # (Manual) 0.0 Promyelocytes # 0.0 Nucleated Red Blood Cells # Giant Platelets 8 H Sodium Level 135 Potassium Level 4.5 Chloride Level 98 Carbon Dioxide Level 30 Anion Gap 7 Blood Urea Nitrogen 31 #H Creatinine 4.79 #H Est Glomerular Filtrat Rate mL/min 9 L Glucose Level 84 Calcium Level 8.6 Phosphorus Level 4.2 Magnesium Level 1.7 Random Vancomycin Level 19.3 Medications Medication Current Medications IV Flush (NS 3 ml) 3 ml PER PROTOCOL IV ; Start 03/04/19 at 14:30 Ondansetron HCl (Zofran Inj) 4 mg Q6H PRN IV NAUSEA/VOMITING; Start 03/04/19 at 14:30 Acetaminophen (Tylenol Tab) 650 mg Q6H PRN PO .PAIN 1-3 OR TEMP Last administered on 03/06/19at 23:08; Admin Dose 650 MG; Start 03/04/19 at 14:30 Docusate Sodium (Colace) 100 mg Q12H PRN PO .CONSTIPATION; Start 03/04/19 at 14:30 Bisacodyl (Dulcolax) 5 mg DAILY PRN PO .CONSTIPATION; Start 03/04/19 at 14:30 Vancomycin HCl (Vanco Iv Per Pharmacy) VANCOMYCIN PER PHARMACY PER PROTOCOL XX ; Start 03/04/19 at 14:30 Oxycodone HCl (Roxicodone) 15 mg Q6H PRN PO MODERATE PAIN LEVEL 4-6 Last adm inistered on 03/07/19 23:11; Admin Dose 15 MG; Start 03/04/19 at 15:00 Clonazepam (Klonopin) 1 mg QHS PRN PO ANXIETY Last administered on 03/07/19 20:48; Admin Dose 1 MG; Start 03/04/19 at 15:00 Ferrous Sulfate (Ferrous Sulfate (Ec)) 325 mg BID PO Last administered on 03/08/19 09:00; Admin Dose 325 MG; Start 03/04/19 at 21:00 Sevelamer Carbonate (Renvela) 4,000 mg WITH MEALS PO Last administered on 03/08/19 17:50; Admin Dose 4,000 MG; Start 03/04/19 at 17:55 Pantoprazole (Protonix Tab) 40 mg DAILY@06 PO Last administered on 03/08/19 05:50; Admin Dose 40 MG; Start 03/05/19 at 06:00 Methadone HCl (Methadone) 107 mg DAILY PO Last administered on 03/08/19 09:04; Admin Dose 107 MG; Start 03/05/19 at 12:00 Epoetin Jourdan-epbx (Retacrit (Non-Esrd)) 10,000 unit MoWeFr@1700 SC ; Start at 17:00; Status Hold Morphine Sulfate (morphine) 2 mg Q4H PRN IV .PAIN 7-10 Last administered on 03/08/19 12:46; Admin Dose 2 MG; Start 03/06/19 at 04:03 Vancomycin/Sodium Chloride 250 ml @ 125 mls/hr Q96H IVPB ; Start 03/09/19 at 14:00 Cefazolin Sodium 50 ml @ 100 mls/hr Q24H IVPB ; Start 03/09/19 at 06:00; Stop 03/11/19 at 11:00 WALTER VELASQUEZ NP March 08, 2019 18:42
[2019-03-08 19:30] VITALS: BP 117/58; PULSE 84; RESP 84
[2019-03-09] VITALS (17 sets, daily range): BP systolic 115–140; BP diastolic 52–79; PULSE 69–85; RESP 16–75
[2019-03-09] MEDS: PANTOPRAZOLE (EC) 40 MG TAB PO SCH (05:26)
[2019-03-09] MEDS: oxyCODONE 15 MG TAB PO PRN (05:30)
[2019-03-09] MEDS ORDERED: CEFAZOLIN 1 GM/50 ML (PMX) 50 ML IVPB SCH (06:00)
[2019-03-09] MEDS: SEVELAMER CARBONATE 800 MG TABLET PO SCH ×3 (08:59→18:24)
[2019-03-09] MEDS: FERROUS SULFATE (EC) 325 MG TAB PO SCH (08:59)
[2019-03-09] MEDS: METHADONE 1 MG/ML (ORAL SOLN) PO SCH ×2 (09:00→10:35)
[2019-03-09] MEDS ORDERED: AMOX500C6 PO (09:47)
[2019-03-09] MEDS ORDERED: DOXY100T20 PO (09:47)
--- NOTE | 2019-03-09 10:05 | PDOCDIS ---
Discharge Instructions CONDITION [id number] Patient Condition: [id number] Stable HOME CARE INSTRUCTIONS: [id number] Special Diet: [id number] Low potassium FOLLOW UP/APPOINTMENTS Follow-up Plan Leonard Patel MD Specialty: Orthopedic Surgery Office Address [address] [place], [place] [id number] Office OTHER ORDERS: Other Orders: 1. Resume home medications. 2. Complete the course of antibiotics. 3. Keep the left upper extremity elevated while resting. 4. Follow-up with your hemodialysis clinic as scheduled. 5. Resume activities as tolerated. 6. Follow-up with orthopedic surgeon for your right hip pain. 7. Please go to the nearest emergency room if you have any persistent fevers, worsening of left upper extremity swelling, or any other unusual signs/symptoms. KRISTEN MEDINA NP March 09, 2019 10:05
--- NOTE | 2019-03-09 10:07 | DS ---
Date/Time of Note Date/Time of Note DATE: 03/09/19 TIME: 10:05 Discharge Summary Admission/Discharge Info Admit Date/Time March 04, 2019 at 14:26 Discharge Date/Time Discharge Diagnosis 1. Left upper extremity cellulitis. 2. Left upper extremity edema. Status post left AV fistulogram and percutaneous venoplasty of severe stenosis of the venous anastomosis on 03/07/2019. 3. Hypertension. 4.. End-stage renal disease on hemodialysis. 5. Chronic pain. 6. Right hip pain. 7. Anemia of chronic kidney disease 8. GERD. Patient Condition: Stable Consults 1. Edson Ram DO, Nephrology. 2. Luis Amor MD, Infectious Diseases. 3. Jeramie Butcher MD, Vascular Surgery. Procedures OPERATIVE REPORT DATE OF OPERATION: 03/07/2019 PREOPERATIVE DIAGNOSIS: Left arm edema. POSTOPERATIVE DIAGNOSIS: Left arm edema. PROCEDURE PERFORMED: Left arm arteriovenous fistulogram and percutaneous venoplasty of severe stenosis of the venous anastomosis. SURGEON: Jeramie Butcher MD ANESTHESIA: Local anesthesia. ESTIMATED BLOOD LOSS: Minimal. COMPLICATIONS: No intraprocedural complications. Pelvis CT IMPRESSION: 1. No acute fracture. 2. Moderate degenerative changes in the anterior right sacroiliac joint, with osseous erosions, new over interval since 08/06/2015. 3. An MRI examination of the right sacroiliac joint may be of further use. 4. Mild degenerative changes in the left sacroiliac joint. Hx of Present Illness This is a 63-year-old female with comorbidities including end-stage renal disease on hemodialysis, hypertension, GERD, anxiety, and rheumatoid arthritis who came to the emergency room with left upper extremity, forearm and hand cellulitis who was admitted to inpatient setting for further treatment and evaluation. Hospital Course An infectious disease consult was obtained. The patient underwent a left upper extremity venous study that was negative for any evidence of venous thrombosis. The patient had edema surrounding the left upper extremity hemodialysis access. Therefore, a vascular surgery consult was also obtained. The patient underwent a left arm arteriovenous fistulogram and percutaneous venoplasty of severe stenosis of the venous anastomosis on 03/07/2019. The patient's left upper extremity was kept elevated while resting. The patient was maintained on antimicrobials including coverage for MRSA for her underlying left upper extremity cellulitis. There was no evidence of any drainable abscess. The patient responded well to the treatment strategy. Upon discharge, the patient will be switched to oral medications including coverage for MRSA to complete a course of 14 days. The patient was being followed by nephrology for her underlying end-stage renal disease. The patient was getting hemodialysis as scheduled. The patient has a history of hypertension. The patient's blood pressure remained stable off antihypertensives. Patient has a history of chronic pain. Patient was maintained on methadone. The patient also complained of right hip pain. The patient's pelvis CT scan was showing moderate degenerative changes of the right sacroiliac joint. The patient wants to follow up with outpatient orthopedic surgery. The information of the orthopedic surgeon was given to the patient. The patient has underlying anemia of chronic kidney disease. The patient was maintained on Epogen as per nephrology. The patient was maintained on PPI for her history of GERD. The patient had a stable hospital course. The patient was cleared by consultants to be discharged home. Discharge Instructions 1. Resume home medications. 2. Complete the course of antibiotics. 3. Keep the left upper extremity elevated while resting. 4. Follow-up with your hemodialysis clinic as scheduled. 5. Resume activities as tolerated. 6. Follow-up with orthopedic surgeon for your right hip pain. 7. Please go to the nearest emergency room if you have any persistent fevers, w orsening of left upper extremity swelling, or any other unusual signs/symptoms. The patient verbalized understanding of her discharge instructions. At this time I would like to thank all the consultants for seeing the patient, doing the necessary procedures, and providing clinical recommendations. The patient was seen in collaboration with Dr. Myers. Home Meds Active Scripts Doxycycline Hyclate* (Doxycycline Hyclate*) 100 Mg Tablet., 100 MG PO BID for 10 Days, #20 TAB Prov:KRISTEN MEDINA RESEARCH DEVELOPMENT MANAGER 03/09/19 Amoxicillin* (Amoxil*) 500 Mg Capsule, 500 MG PO Q8 for 10 Days, #30 CAP Prov:KRISTEN MEDINA RESEARCH DEVELOPMENT MANAGER 03/09/19 Reported Medications Biotin (Biotin) 5,000 Mcg Tab.rapdis, 5000 MCG PO 03/04/19 Ferrous Sulfate* (Ferrous Sulfate*) 325 Mg Tabec, 325 MG PO BID, TAB 03/04/19 Clonazepam* (Clonazepam*) 1 Mg Tablet, 1 MG PO QHS PRN for ANXIETY, TAB 03/04/19 Sevelamer Carbonate* (Renvela*) 800 Mg Tablet, 4 GM PO WITH MEALS, TAB 03/04/19 Oxycodone Hcl* (IR) (Oxycodone Hcl*) 15 Mg Tablet, 15 MG PO Q8 PRN for PAIN, TAB 03/04/19 Omeprazole* (Omeprazole*) 20 Mg Capsule.dr, 20 MG PO DAILY, #30 CAP 03/04/19 Methadone Hcl* (Methadone*) 10 Mg Tab, 107 MG PO DAILY, TAB [id number] ,patient take 107mg-daily per clinical engineering manager-Addis 03/04/19 Discontinued Reported Medications Sodium Polystyrene Sulfonate* (Kayexalate*) 15 Gm/60 Ml Susp, 30 GM PO, ML 12/24/18 Sodium Bicarbonate* (Sodium Bicarbonate*) 650 Mg Tablet, 1300 MG PO BID, TAB 12/24/18 Methadone Hcl* (Methadone Hcl*) 10 Mg/5 Ml Solution, 107 MG PO DAILY, ML 05/23/18 Sevelamer Carbonate* (Renvela*) 800 Mg Tablet, 0.8 GM PO WITH MEALS, TAB 05/21/18 Metoprolol Tartrate* (Lopressor*) 25 Mg Tab, 25 MG PO BID, #60 TAB 05/21/18 Oxycodone Hcl* (IR) (Oxycodone Hcl*) 15 Mg Tablet, 15 MG PO Q4H PRN for PAIN, TAB 05/21/18 Omeprazole* (Omeprazole*) 20 Mg Capsule.dr, 20 MG PO AC BREAKFAST, #30 CAP 03/22/18 Multivitamins* (Theragran*) 1 Tab Tab, 1 TAB PO DAILY, TAB 03/22/18 Follow-up Plan Leonard Patel MD Specialty: Orthopedic Surgery Office Address [address] [place], [place] [id number] Office Primary Care Provider Not On Staff Doctor Time spent on discharge: > 30 minutes Pending Labs Laboratory Tests Test 03/09/19 04:37 White Blood Count 5.1 10^3/ul (4.8-10.8) Red Blood Count 3.34 10^6/ul (4.20-5.40) Hemoglobin 10.1 g/dl (12.0-16.0) Hematocrit 31.6 % (37.0-47.0) Mean Corpuscular Volume 94.6 fl (82.0-101.0) Mean Corpuscular Hemoglobin 30.2 pg (29.0-33.0) Mean Corpuscular Hemoglobin Concent 32.0 g/dl (32.0-37.0) Red Cell Distribution Width 17.0 % (11.5-14.5) Platelet Count 333 10^3/UL (140-415) Mean Platelet Volume 11.1 fl (7.4-10.4) Immature Granulocytes % 0.600 % (0.001-0.429) Neutrophils % 7.6 % (39.0-77.0) Segmented Neutrophils % (Manual) 9 % (39-77) Band Neutrophils % (Manual) 1 % (0-4) Lymphocytes % 67.4 % (15.0-51.0) Lymphocytes % (Manual) 77 % (15-51) Monocytes % 23.8 % (0.0-11.0) Monocytes % (Manual) 12 % (0-11) Eosinophils % 0.0 % (0.0-7.0) Eosinophils % (Manual) 1 % (0-7) Basophils % 0.6 % (0.0-2.0) Nucleated Red Blood Cells % 0.0 /100WBC (0.0-0.0) Immature Granulocytes # 0.030 10^3/ul (0.0-0.031) Neutrophils # 0.4 10^3/ul (1.6-7.5) Neutrophils # (Manual) 0.5 10^3/ul (1.6-7.5) Band Neutrophils # 0.0 10^3/ul (0.0-0.6) Lymphocytes (Manual) 3.9 10^3/ul (0.8-2.9) Lymphocytes # 3.5 10^3/ul (0.8-2.9) Monocytes # 1.2 10^3/ul (0.3-0.9) Monocytes # (Manual) 0.6 10^3/ul (0.3-0.9) Eosinophils # 0.0 10^3/ul (0.0-0.5) Basophils # 0.0 10^3/ul (0.0-0.1) Nucleated Red Blood Cells # 0.0 10^3/ul (0.0-0.0) Platelet Estimate NORMAL Polychromasia 1+ (0-0) Hypochromasia 1+ (0-0) Poikilocytosis 1+ (0-0) Anisocytosis 2+ (0-0) Macrocytosis 1+ (0-0) Sodium Level 135 mmol/L (135-144) Potassium Level 5.1 mmol/L (3.5-5.1) Chloride Level 97 mmol/L (97-110) Carbon Dioxide Level 28 mmol/L (21-31) Anion Gap 10 (5-13) Blood Urea Nitrogen 53 mg/dl (7-20) Creatinine 6.13 mg/dl (0.44-1.00) Est Glomerular Filtrat Rate mL/min 7 mL/min (>60) Glucose Level 94 mg/dl (70-220) Calcium Level 8.5 mg/dl (8.4-10.2) Phosphorus Level 4.1 mg/dl (2.5-4.9) Magnesium Level 1.8 mg/dl (1.7-2.5) KRISTEN MEDINA NP March 09, 2019 10:07
--- NOTE | 2019-03-09 12:07 | CONS ---
Assessment/Plan Assessment/Plan Hospital Course (Demo Recall) ID PROGRESS NOTE CURRENT ABX: DAY #=>Vanco IV + Ancef 24H INTERVAL SUMMARY * DC PLANNING IN PROCESS * A/A/O -- smiling, optimistic, doing well, no c/o, no fever, VSS, NAD * POD # 2=> Status post left AV fistulogram and percutaneous venoplasty of severe stenosis of the venous anastomosis on 03/07/2019. IMAGING * Chest x-ray on admission revealed mild bibasilar atelectatic changes. * Left upper extremity ultrasound==> Indwelling's left upper extremity AV fistula nd revealed no evidence for DVT arterial study was unremarkable MICRO/OTHER * 03/04/19 BCX (-) PHYSICAL EXAMINATION: GENERAL: VSS, NAD, HEENT: AT, NC, NECK: WNL CHEST: Equal chest rise bilaterally without dyspnea on observation ABD: Soft, ND EXTREMITIES: Warm, dry = left wrist and hand swelling erythema swelling also extends a little bit higher to her elbow, AV fistula patent SKIN: No rash, no diaphoresis ID ASSESSMENT 63 yo F admit with: 1. Systemic inflammatory response syndrome 2. Left upper extremity cellulitis w/lymphedema 3. End-stage renal disease, hemodialysis dependent 4. Rheumatoid arthritis 5. Anemia 6. Hypertension ABX ALLERGIES: Bactrim/Sulfa INVASIVES: PIV CURRENT ABX: DAY # =>Vanco IV + Ancef ID RECOMMENDATIONS/PLAN: 1. Continue Vanco IV -- DC ancef IV 2. -- MAY DC on Vanco IV continued dose per pharmacy to be given at HD unit . Consultation Date/Type/Reason Admit Date/Time March 04, 2019 at 14:26 Initial Consult Date Date/Time of Note DATE: 03/09/19 TIME: 11:47 Exam/Review of Systems Exam Vitals Vital Signs Date Temp Pulse Resp B/P (MAP) Pulse Ox O2 O2 Flow FiO2 Time Delivery Rate 03/09/19 98.7 82 18 140/52 91 08:20 (81) 03/09/19 Room Air 02:20 03/06/19 2.0 14:31 Intake and Output 03/08/19 03/08/19 03/09/19 1515:00 23:00 07:00 IntakeIntake Total 340 ml 420 ml 250 ml BalanceBalance 340 ml 420 ml 250 ml Results Result Diagram: 03/09/19 0437 03/09/19 0437 Results 24hrs Laboratory Tests Test 03/09/19 04:37 White Blood Count 5.1 # Red Blood Count 3.34 L Hemoglobin 10.1 L Hematocrit 31.6 L Mean Corpuscular Volume 94.6 Mean Corpuscular Hemoglobin 30.2 Mean Corpuscular Hemoglobin Concent 32.0 Red Cell Distribution Width 17.0 H Platelet Count 333 Mean Platelet Volume 11.1 H Immature Granulocytes % 0.600 H Neutrophils % 7.6 L Segmented Neutrophils % (Manual) 9 L Band Neutrophils % (Manual) 1 Lymphocytes % 67.4 H Lymphocytes % (Manual) 77 H Monocytes % 23.8 H Monocytes % (Manual) 12 H Eosinophils % 0.0 Eosinophils % (Manual) 1 Basophils % 0.6 Nucleated Red Blood Cells % 0.0 Immature Granulocytes # 0.030 Neutrophils # 0.4 L Neutrophils # (Manual) 0.5 L Band Neutrophils # 0.0 Lymphocytes (Manual) 3.9 H Lymphocytes # 3.5 H Monocytes # 1.2 H Monocytes # (Manual) 0.6 Eosinophils # 0.0 Basophils # 0.0 Nucleated Red Blood Cells # 0.0 Platelet Estimate NORMAL Polychromasia 1+ Hypochromasia 1+ Poikilocytosis 1+ Anisocytosis 2+ Macrocytosis 1+ Sodium Level 135 Potassium Level 5.1 Chloride Level 97 Carbon Dioxide Level 28 Anion Gap 10 Blood Urea Nitrogen 53 H Creatinine 6.13 H Est Glomerular Filtrat Rate mL/min 7 L Glucose Level 94 Calcium Level 8.5 Phosphorus Level 4.1 Magnesium Level 1.8 Medications Medication Current Medications IV Flush (NS 3 ml) 3 ml PER PROTOCOL IV ; Start 03/04/19 at 14:30 Ondansetron HCl (Zofran Inj) 4 mg Q6H PRN IV NAUSEA/VOMITING; Start 03/04/19 at 14:30 Acetaminophen (Tylenol Tab) 650 mg Q6H PRN PO .PAIN 1-3 OR TEMP Last administered on 03/06/19at 23:08; Admin Dose 650 MG; Start 03/04/19 at 14:30 Docusate Sodium (Colace) 100 mg Q12H PRN PO .CONSTIPATION; Start 03/04/19 at 1 4:30 Bisacodyl (Dulcolax) 5 mg DAILY PRN PO .CONSTIPATION; Start 03/04/19 at 14:30 Vancomycin HCl (Vanco Iv Per Pharmacy) VANCOMYCIN PER PHARMACY PER PROTOCOL XX ; Start 03/04/19 at 14:30 Oxycodone HCl (Roxicodone) 15 mg Q6H PRN PO MODERATE PAIN LEVEL 4-6 Last administered on 03/09/19 05:30; Admin Dose 15 MG; Start 03/04/19 at 15:00 Clonazepam (Klonopin) 1 mg QHS PRN PO ANXIETY Last administered on 03/07/19 20:48; Admin Dose 1 MG; Start 03/04/19 at 15:00 Ferrous Sulfate (Ferrous Sulfate (Ec)) 325 mg BID PO Last administered on 03/09/19 08:59; Admin Dose 325 MG; Start 03/04/19 at 21:00 Sevelamer Carbonate (Renvela) 4,000 mg WITH MEALS PO Last administered on 03/09/19 08:59; Admin Dose 4,000 MG; Start 03/04/19 at 17:55 Pantoprazole (Protonix Tab) 40 mg DAILY@06 PO Last administered on 03/09/19 05:26; Admin Dose 40 MG; Start 03/05/19 at 06:00 Methadone HCl (Methadone) 107 mg DAILY PO Last administered on 03/09/19 10:35; Admin Dose 107 MG; Start 03/05/19 at 12:00 Epoetin Jourdan-epbx (Retacrit (Non-Esrd)) 10,000 unit MoWeFr@1700 SC ; Start 03/05/19 at 17:00; Status Hold Morphine Sulfate (morphine) 2 mg Q4H PRN IV .PAIN 7-10 Last administered on 03/08/19 19:00; Admin Dose 2 MG; Start 03/06/19 at 04:03 Vancomycin/Sodium Chloride 250 ml @ 125 mls/hr Q96H IVPB ; Start 03/09/19 at 14:00 Cefazolin Sodium 50 ml @ 100 mls/hr Q24H IVPB Last administered on 03/09/19 05:26; Admin Dose 100 MLS/HR; Start 03/09/19 at 06:00; Stop 03/11/19 at 11:00 WALTER VELASQUEZ NP March 09, 2019 12:07
[2019-03-09] MEDS ORDERED: VANCOMYCIN 750 MG (PMX) 250 ML IVPB SCH (14:00)
--- NOTE | 2019-03-11 09:20 | PN ---
DATE: 03/09/2019 SUBJECTIVE: The patient is stable. No events overnight. OBJECTIVE: VITAL SIGNS: Blood pressure is 122/68, pulse 75, respiration is 18, temperature 98.6. HEENT: Head is normocephalic. NECK: Supple. HEART: Regular rate. LUNGS: Show diminished breath sounds at the base. ABDOMEN: Soft, nontender to palpation without rebound or guarding. EXTREMITIES: Negative for clubbing, cyanosis, no edema. DERMATOLOGIC: No rashes. MUSCULOSKELETAL: No joint effusion. NEUROLOGIC: No change in exam. MEDICATIONS: Reviewed. LABORATORY DATA: Has been reviewed. ASSESSMENT AND PLAN: 1. End-stage renal disease. Plan for dialysis today. We will dialyze for 3 hours 3k bath, calcium 2.5. 2. Anemia. Monitor hemoglobin and hematocrit levels. Will give Epogen as needed. 3. Mineral bone disorder. Monitor calcium and phosphorus levels. 4. Hyperkalemia, resolved. 5. Left arm cellulitis, improving. Continue current antibiotic regimen. 6. Hypertension. Continue current blood pressure regimen. 7. History of rheumatoid arthritis. 8. Anxiety disorder. Continue to monitor. Dictated By: IMELDA PEREIRA DO NR/NTS Conf#: [id number] DID#: [id number] CC: ANDRE PEARSON MD;*EndCC*
== END 2019-03-09 20:25 | disposition home or self-care (01) | DRG 252 ==
LOC: E/R 11:11 → SUATTDRO 14:23 → MS1 14:26
PROVIDERS: ADMIT Internal Medicine; ATTEND Internal Medicine
PROC: 5A1D70Z Performance of Urinary Filtration, Intermittent, Less than 6 Hours Per Day (ICD-10-PCS; 2019-03-05)
PROC: 03763ZZ Dilation of Left Axillary Artery, Percutaneous Approach (ICD-10-PCS; principal; 2019-03-07 07:30)
DX: T82.858A Stenosis of other vascular prosthetic devices, implants and grafts, initial encounter (principal); K85.90 Acute pancreatitis without necrosis or infection, unspecified; N18.6 End stage renal disease; L03.114 Cellulitis of left upper limb; G93.40 Encephalopathy, unspecified; I13.0 Hypertensive heart and chronic kidney disease with heart failure and stage 1 through stage 4 chronic kidney disease, or unspecified chronic kidney disease; R65.10 Systemic inflammatory response syndrome (SIRS) of non-infectious origin without acute organ dysfunction; K50.90 Crohn's disease, unspecified, without complications; F11.20 Opioid dependence, uncomplicated; C91.11 Chronic lymphocytic leukemia of B-cell type in remission; I50.9 Heart failure, unspecified; E87.5 Hyperkalemia; Z99.2 Dependence on renal dialysis; M06.9 Rheumatoid arthritis, unspecified; K21.9 Gastro-esophageal reflux disease without esophagitis; F41.9 Anxiety disorder, unspecified; D50.9 Iron deficiency anemia, unspecified; D63.1 Anemia in chronic kidney disease; G89.29 Other chronic pain; M25.551 Pain in right hip
CPT/HCPCS: 36902; 71045; 72192; 73090; 73120; 73510; 80048; 80053; 80202; 82784; 82785; 83036; 83605; 83735; 84100; 85025; 85610; 85651; 85730; 86140; 87340; 90935; 93931; 93971; 96374; 96375; C1894; J0690; J1644; J2250; J2270; J2405; J2543; J3010; J3370; J7030; J7040; J7999; Q5106; Q9967

== ENCOUNTER 2019-03-17 16:15 | Inpatient (IN) | payer MEDICARE, OTHER ==
[~2019-03-17] VITALS: Ht 157.5 cm; Wt 51.2 kg
[~2019-03-17 16:15] MED LIST changes: +AMOX500C6 PO; +BIOT5000 PO; +CLON1TAB13 PO; +DOXY100T20 PO; +FER325 PO; -METH10SO PO; +METH10TA2 PO; -METO-448 PO; -MULTI PO; -SODI15OR8 PO; -SODI650T PO
--- NOTE | 2019-03-17 17:38 | ERD ---
ER Documentation Chief Complaint Chief Complaint left arm pain/swelling HPI The patient is a 63-year-old female, presenting to the ER because of recurrent left forearm swelling and redness and pain for the last 2 days. He was admitted recently and discharged about a week ago for cellulitis of the left forearm. She complains of subjective fever, denies chills, neck pain, chest pain, dyspnea, abdominal pain, vomiting, dysuria, diarrhea. She has hemodialysis Sunday//Sunday Past medical history: Anxiety, chronic kidney disease, history of CHF, hypertension, anemia, chronic pain syndrome, GERD Past surgical history: Left upper extremity AV fistula rhinoplasty on March 07, 2019, splenectomy ROS All systems reviewed and are negative except as per history of present illness. Medications Home Meds Active Scripts Doxycycline Hyclate* (Doxycycline Hyclate*) 100 Mg Tablet.dr, 100 MG PO BID for 10 Days, #20 TAB Prov:KRISTEN MEDINA [employer]TER 03/09/19 Amoxicillin* (Amoxil*) 500 Mg Capsule, 500 MG PO Q8 for 10 Days, #30 CAP Prov:KRISTEN MEDINA [employer] WHE[employer]TER 03/09/19 Reported Medications Biotin (Biotin) 5,000 Mcg Tab.rapdis, 5000 MCG PO 03/04/19 Ferrous Sulfate* (Ferrous Sulfate*) 325 Mg Tabec, 325 MG PO BID, TAB 03/04/19 Clonazepam* (Clonazepam*) 1 Mg Tablet, 1 MG PO QHS PRN for ANXIETY, TAB 03/04/19 Sevelamer Carbonate* (Renvela*) 800 Mg Tablet, 4 GM PO WITH MEALS, TAB 03/04/19 Oxycodone Hcl* (IR) (Oxycodone Hcl*) 15 Mg Tablet, 15 MG PO Q8 PRN for PAIN, TAB 03/04/19 Omeprazole* (Omeprazole*) 20 Mg Capsule.dr, 20 MG PO DAILY, #30 CAP 03/04/19 Methadone Hcl* (Methadone*) 10 Mg Tab, 107 MG PO DAILY, TAB [id number] ,patient take 107mg-daily per clinical education specialist-Addis 03/04/19 Allergies Allergies: Coded Allergies: sulfamethoxazole (Verified Allergy, Unknown, 03/04/19) trimethoprim (Verified Allergy, Unknown, 03/04/19) PMhx/Soc History of Surgery: Yes (bowel sx, metal plate and pins in r. leg, jaw surgery ) Anesthesia Reaction: No Hx Neurological Disorder: Yes (acute encephalopathy) Hx Respiratory Disorders: No Hx Cardiac Disorders: Yes (CHF, HTN, anemia) Hx Psychiatric Problems: No Hx Miscellaneous Medical Probl: No Hx Alcohol Use: No Hx Substance Use: Yes (heroin use in 2008 ) Hx Tobacco Use: No Physical Exam Vitals Vital Signs Date Temp Pulse Resp B/P (MAP) Pulse Ox O2 O2 Flow FiO2 Time Delivery Rate 03/17/19 76 20 92 21 20:53 03/17/19 98.0 71 18 146/89 92 16:24 (108) Physical Exam Const: No acute distress. Head: Atraumatic. Eyes: Normal Conjunctiva. ENT: Normal External Ears, Nose and Mouth. Neck: Full range of motion. No meningismus. Resp: Clear to auscultation bilaterally. Cardio: Regular rate and rhythm. Abd: Soft, non distended, normal bowel sounds, non tender. Skin: No petechiae or rashes. Back: No midline or flank tenderness. Ext: Left distal forearm is erythematous, warm to touch, no crepitus Neur: Awake and alert. No focal deficit Psych: Normal Mood and Affect. Result Diagram: 03/17/19181303/17/191813 Results 24 hrs Laboratory Tests Test 03/17/19 18:14 03/17/19 20:49 White Blood Count 8.8 10^3/ul Red Blood Count 3.64 10^6/ul Hemoglobin 11.0 g/dl Hematocrit 35.7 % Mean Corpuscular Volume 98.1 fl Mean Corpuscular Hemoglobin 30.2 pg Mean Corpuscular Hemoglobin Concent 30.8 g/dl Red Cell Distribution Width 17.9 % Platelet Count 501 10^3/UL Mean Platelet Volume 11.4 fl Immature Granulocytes % 0.000 % Neutrophils % % Segmented Neutrophils % (Manual) 4 % Band Neutrophils % (Manual) 10 % Lymphocytes % % Lymphocytes % (Manual) 64 % Reactive Lymphocytes % (Manual) 16 % Monocytes % % Monocytes % (Manual) 3 % Eosinophils % % Basophils % % Basophils % (Manual) 2 % Metamyelocytes % (manual) 1 % Nucleated Red Blood Cells % 0.0 /100WBC Immature Granulocytes # 0.000 10^3/ul Neutrophils # 10^3/ul Neutrophils # (Manual) 0.4 10^3/ul Band Neutrophils # 0.8 10^3/ul Lymphocytes (Manual) 5.6 10^3/ul Lymphocytes # 10^3/ul Reactive Lymphocytes # 1.4 10^3/ul Monocytes # 10^3/ul Monocytes # (Manual) 0.2 10^3/ul Eosinophils # 10^3/ul Basophils # 10^3/ul Basophils # (Manual) 0.1 10^3/ul Metamyelocytes # 0.0 10^3/ul Nucleated Red Blood Cells # 10^3/ul Platelet Estimate NORMAL Giant Platelets 29 % Sodium Level 137 mmol/L Potassium Level 6.6 mmol/L Chloride Level 101 mmol/L Carbon Dioxide Level 21 mmol/L Anion Gap 15 Blood Urea Nitrogen 78 mg/dl Creatinine 8.15 mg/dl Est Glomerular Filtrat Rate mL/min 5 mL/min Glucose Level 77 mg/dl Calcium Level 8.8 mg/dl Bedside Glucose 67 mg/dL Current Medications Medications Dose Sig/Vinod Start Time Status Last (Trade) Ordered Route PRN Stop Time Admin Dose Reason Admin Ceftriaxone 50 ml @ ONCE ONCE 03/17/19 DC 03/17/19 Sodium 100 mls/hr IVPB 20:30 03/17/19 20:46 20:59 Vancomycin 250 ml @ ONCE ONCE 03/17/19 03/17/19 HCl 125 mls/hr IVPB 20:30 03/17/19 20:46 22:29 Dextrose 100 ml ONCE ONCE 03/17/19 DC 03/17/19 (D50w IV 20:30 03/17/19 20:45 Syringe) 20:31 Insulin 10 unit ONCE STAT 03/17/19 DC 03/17/19 Human IVP 20:11 03/17/19 20:52 Regular 20:19 (Humulin R) Dextrose ONCE PRN 03/17/19 (D50w IV DECREASED 20:30 03/18/19 Syringe) GLUCOSE 20:29 Sodium 30 gm ONCE ONCE 03/17/19 DC 03/17/19 Polystyrene PO 20:30 03/17/19 20:53 Sulfonate 20:31 (Kayexelate 15 Gm Kit (Powder+Sorbi rasheed)) Albuterol 15 mg ONCE RESP 03/17/19 DC 03/17/19 (Proventil THERAPY 20:17 03/17/19 20:53 0.5% (Neb)) STAT INH 20:18 Procedures/MDM [place] [id number] Radiology Main Line: [phone] DIAGNOSTIC IMAGING REPORT Patient: GERALD HARRISON : 1955 Age: 63 Sex: F MR #: [id number] DOS: 03/17/19 1759 Ordering MD: ROSEANN BUENROSTRO MD Location: E/R Room/Bed: PROCEDURE: XR Chest 1 View CLINICAL INDICATION: Cough TECHNIQUE: Frontal view of the chest COMPARISON: DR PRATT 03/04/2019 FINDINGS: Heart is borderline enlarged. Aorta is tortuous and atherosclerotic. Lungs are clear. No pleural effusion or pneumothorax. No acute osseus abnormality. Left upper abdomen clips. Left upper extremity clips. IMPRESSION: Mild cardiomegaly. Aortic atherosclerosis. RPTAT: [facility] Physician Day Date Time Electronically viewed and signed by Windy King Physician on 03/17/2019 15:59 ME/ CC: ROSEANN BUENROSTRO MD [phone] EKG: Read by emergency physician Rate/Rhythm: Normal Sinus Rhythm 72 beats/min QRS, ST, T-waves: No ST elevation, no T inversion, artifacts Impression: Abnormal EKG MEDICAL MAKING DECISION: The patient is a 63-year-old female, presenting with acute left upper proximity cellulitis, acute hyperkalemia. She was treated Rocephin IV, vancomycin IV for acute left upper extremity cellulitis, 2 amp D50 IV, 10 units regular insulin IV, KCl 30 g p.o. and albuterol 15 mg nebulizer for acute hyperkalemia She was able to tolerate p.o. well in the emergency department The differential diagnoses considered include but are not limited to cellulitis, osteomyelitis, abscess, dietary/medical noncompliance Critical Care: Time: 35 minutes excluding all billable procedures. Treatments/Evaluations: Close monitoring and treatment of unstable vital signs, cardiorespiratory, and neurologic status, while maintaining tight balance of fluid, respiratory, and cardiac interventions. Departure Diagnosis: Primary Impression: Cellulitis of left forearm Additional Impressions: Acute hyperkalemia Anemia Condition: Stable Comments I discussed the findings with the patient. I discussed the patient with Dr Myers at 8:15p , who was made aware of the lab, the treatment, the patient condition. The patient is admitted to Tel Disclaimer: Inadvertent spelling and grammatical errors are likely due to EHR/dictation software use and do not reflect on the overall quality of patient care. Also, please note that the electronic time recorded on this note does not necessarily reflect the actual time of the patient encounter. ROSEANN BUENROSTRO MD Mar 17, 2019 17:38
[2019-03-17] MEDS ORDERED: INSULIN REGULAR, HUMAN 100 UNIT/1 ML 3ML VIAL IVP STA (20:11)
[2019-03-17] MEDS ORDERED: ALBUTEROL 0.5% (NEB) 2.5 MG/0.5 ML AMP INH STA (20:17)
[2019-03-17] MEDS ORDERED: DEXTROSE 50% 50 ML SYRINGE IV ONE (20:30)
[2019-03-17] MEDS ORDERED: CEFTRIAXONE 1 GM/50 ML (PMX) 50 ML IVPB ONE (20:30)
[2019-03-17] MEDS ORDERED: DEXTROSE 50% 50 ML SYRINGE IV PRN (20:30)
[2019-03-17] MEDS ORDERED: VANCOMYCIN 1 GM (PMX) 250 ML IVPB ONE (20:30)
[2019-03-17] MEDS ORDERED: SODIUM POLYSTYRENE 15 GM KIT (POWDER + SORBITOL) PO ONE (20:30)
[2019-03-17] MEDS ORDERED: DOCUSATE SODIUM 100 MG CAP PO PRN (21:30)
[2019-03-17] MEDS ORDERED: MAGNESIUM HYDROXIDE 30ML CUP PO PRN (21:30)
[2019-03-17] MEDS ORDERED: VANCOMYCIN IV PER PHARMACY XX SCH (21:30)
[2019-03-17] MEDS ORDERED: ALBUTEROL/IPRATROPIUM (NEB) 3 ML AMP HHN PRN (21:30)
[2019-03-17] MEDS ORDERED: ACETAMINOPHEN 325 MG TAB PO PRN (21:30)
[2019-03-17] MEDS ORDERED: ONDANSETRON 4 MG INJ IV PRN (21:30)
[2019-03-17] MEDS ORDERED: NITROGLYCERIN (SL) 0.4 MG TAB SL PRN (21:30)
[2019-03-17] MEDS ORDERED: hydrALAzine 20 MG INJ IV PRN (21:30)
[2019-03-17] MEDS ORDERED: LORAZEPAM 2 MG INJ IV PRN (21:30)
[2019-03-17] MEDS ORDERED: clonAZEPAM 0.5 MG TAB PO PRN (21:30)
[2019-03-17] MEDS ORDERED: NACL 0.9% 3 ML SYG IV SCH (21:30)
[2019-03-17] MEDS ORDERED: CEFAZOLIN 1 GM/50 ML (PMX) 50 ML IVPB SCH (22:00)
[2019-03-17 23:27] VITALS: PULSE 89
[2019-03-17 23:50] VITALS: Ht 157.5 cm; Wt 51.2 kg
[2019-03-18] VITALS (25 sets, daily range): BP systolic 96–140; BP diastolic 55–74; PULSE 67–90; RESP 17–20
[2019-03-18] MEDS: morphine 2 MG INJ IV PRN ×3 (01:01→06:23)
--- NOTE | 2019-03-18 03:02 | HP ---
DATE OF ADMISSION: 03/17/2019 CHIEF COMPLAINT: Left upper extremity pain and swelling and high potassium. HISTORY OF PRESENT ILLNESS: A 63-year-old female with past medical history of chronic kidney disease , end-stage renal disease on dialysis, congestive heart failure, hypertension, anemia of chronic dise ase, chronic pain syndrome, anxiety, gastroesophageal reflux disease, possible rheumatoid arthritis w ho has been having left upper extremity swelling. The patient states symptoms this have been going o n for the last two days. She was recently hospitalized here in the hospital from 03/04/2019 to 03/09. At that time, she was treated for left upper extremity cellulitis and also had a left AV fist ulogram and percutaneous venoplasty of severe stenosis of the venous anastomosis performed on the t admission of the left upper extremity. Since that time, she was prescribed antibiotics and apparen tlchris has been taken home, but has been complaining as stated above of the left upper arm pain and swel ling. It is unclear if she has been compliant with her dialysis as she may have missed her last sess ion, but it is unclear. In an event when she presented to the ER today, she was found with a potassi um of 6.6 and she was given treatment in the ER today of Kayexalate, albuterol and insulin. The emilia ent denies any fevers or chills, no upper or lower gastrointestinal bleeding, no nausea, vomiting, no diarrhea or constipation, no chest pain. PAST MEDICAL HISTORY: As above. ALLERGIES: SULFAMETHOXAZOLE AND TRIMETHOPRIM. PAST SURGICAL HISTORY: Again, history of left upper extremity AV fistula, rhinoplasty performed on 0 . Also, history of jaw surgery, bowel surgery and right leg surgery in the past. SOCIAL HISTORY: Former IV drug abuse, history of heroin in the past. FAMILY HISTORY: Noncontributory. MEDICATIONS AT HOME: 1. Amoxicillin 500 mg q.8h. 2. Doxycycline 100 mg b.i.d. 3. Ferrous sulfate 325 mg b.i.d. 4. Clonazepam 1 mg at bedtime p.r.n. 5. Methadone 170 mg daily. 6. Oxycodone 50 mg q.8h. p.r.n. 7. Renvela 4 grams with meals. 8. Omeprazole 20 mg daily. 9. Biotin 500 mcg. PHYSICAL EXAMINATION: VITAL SIGNS: T-max 98.0, pulse 71 to 76, respirations 18 to 20, blood pressure 146/89, satting at 92 % on room air. GENERAL: The patient is lying in bed, answering questions appropriately. No acute distress. HEENT: Pupils equal, round, reactive to light. Extraocular muscles intact. NECK: Supple, no thyromegaly. LUNGS: Clear to auscultation bilaterally. CARDIOVASCULAR: S1, S2 heard. No rubs or gallops. ABDOMEN: Soft, nontender, nondistended. Normal bowel sounds. No rebound or guarding. MUSCULOSKELETAL: The left upper extremity is slightly red and warm to touch. Otherwise, no lower ex tremity edema bilaterally. NEUROLOGIC: No focal deficits. LABORATORIES: CBC is normal. Sodium 137, potassium 6.6, chloride 101, CO2 21, BUN 78, creatinine 8. 15, glucose 77. IMAGING: There was a chest x-ray performed today that shows aortic atherosclerosis and mild cardiome ayesha. ASSESSMENT AND PLAN: A 63-year-old female coming in with left upper extremity swelling for the last two days and also hyperkalemia with a prior history of end-stage renal disease on dialysis. 1. Recent left upper extremity cellulitis treatment with left upper extremity arteriovenous fistula and rhinoplasty performed on 03/07/2019. 2. Left upper extremity swelling. Again, we will admit the patient, put her on broad-spectrum antib iotics. We will obtain vascular surgery consult and consider ID consult as well. When patient was d ischarged home on 03/09/2019, they were sent home with p.o. antibiotics, doxycycline and amoxicillin. So, we will put the patient back on IV broad-spectrum antibiotic and consider doing a left upper ex tremity ultrasound to evaluate for any other pathology such as blood clots or other rule out abscess. The patient again white blood cell count is normal. No fevers. Check TSH, A1c, and lipid panel. 3. Hyperkalemia. Again, the patient got treatment in the ER as mentioned above in the HPI. We will follow up the basic metabolic panel in the morning and obtain a renal consult as well. 4. End-stage renal disease on dialysis. Again, we will obtain a renal consult. Continue dialysis a s regularly scheduled. 5. History of anemia of chronic disease. Hemoglobin stable. Continue to monitor for now. 6. Hypertension. Blood pressure stable. Continue current medications. 7. History of anxiety, Ativan p.r.n. 8. History of chronic pain. Apparently, the patient takes Oxyir and methadone at home. We will nee d to verify her home methadone dose. Continue morphine p.r.n. for now and [place] p.r.n. as well. We can verify that methadone. 9. History of gastroesophageal reflux disease. Continue proton pump inhibitor. 10. Deep venous thrombosis prophylaxis, heparin subcutaneously. Dictated By: TERA CAT Conf#: [id number] DID#: [id number] CC: LESLEE CHANDLER MD; MARLO EUBANKS MD; WILLIAM ASH MD; ANDRE PEARSON MD; ANILA GARCIA DO ; JOSEFINA RESENDEZ MD; ANDRE VILLASENOR MD; PRO PAIZ MD; YANNI MCELROY MD; CYNTHIA DANIELLE MD; KARON LEE MD; CRISTIANA JOSEPH MD; ANDRE BROWN MD; JEZ FRAGOSO MD; ADAN DO MD; SILVA HAMMONDS MD;*EndCC*
[2019-03-18] MEDS ORDERED: PANTOPRAZOLE (EC) 40 MG TAB PO SCH (06:00)
[2019-03-18] MEDS ORDERED: SODIUM POLYSTYRENE 15 GM KIT (POWDER + SORBITOL) PO ONE (08:00)
[2019-03-18] MEDS: FERROUS SULFATE (EC) 325 MG TAB PO SCH ×2 (08:59→21:30)
[2019-03-18] MEDS ORDERED: CALCIUM GLUCONATE 10% 2 GM in DEXTROSE 5% 100 ML IVPB ONE (09:00)
[2019-03-18] MEDS ORDERED: NON-FORMULARY/PATIENT OWN MED (Omeprazole* 20 MG) PO SCH (09:00)
[2019-03-18] MEDS: HYDROCODONE/APAP (5/325) TAB PO PRN ×2 (09:00→13:37)
[2019-03-18] MEDS: SEVELAMER CARBONATE 0.8 GM PKT PO SCH ×3 (09:01→18:00)
[2019-03-18] MEDS: HEPARIN 5,000 UNIT/1 ML VIAL SC SCH ×2 (09:02→21:34)
--- NOTE | 2019-03-18 10:43 | CONS ---
DATE OF ADMISSION: 03/17/2019 DATE OF CONSULTATION: 03/18/2019 REASON FOR CONSULTATION: End-stage renal disease on hemodialysis. Thank you, Dr. Leon, for anticipating medical management of this patient. HISTORY OF PRESENT ILLNESS: This is a 63-year-old female who has end-stage renal disease and [facility], and Sunday at [facility], came in to the emergency room l ast night because of severe left hand pain and weakness. The patient has a vascular access, an AV fi stula in the left upper arm. The patient was in the hospital last week and was treated for a left ar m cellulitis, which seems to have improved. The patient was seen by Dr. Torin Luna last week and garcia d a fistulogram done which showed a venous stenosis of which Dr. Luna performed a percutaneous inter vention and angioplasty of the left upper arm AV fistula/stenosis. The patient was treated for cellu litis last week, which seems to have resolved. The patient in the emergency room this morning had a potassium of 6.7. The patient's senior counsel commercial is Dr. Heidi Willett. The patient denies any chest rosalinda n, shortness of breath, nausea, vomiting. PAST MEDICAL HISTORY: The patient has end-stage renal disease and dialyzes at [facility] Sunday, and Sunday. She has bone disease due to her kidney disease, history of hypertension, histor y of rheumatoid arthritis. PAST SURGICAL HISTORY: Left upper arm AV fistula. FAMILY HISTORY: No family history of kidney disease. SOCIAL HISTORY: She does not drink alcohol nor smoke cigarettes. She does not use drugs. She is a former IV drug user and history of heroin in the past. REVIEW OF SYSTEMS: Negative except for that mentioned above. ALLERGIES: 1. SULFAMETHOXAZOLE. 2. TRIMETHOPRIM. PAST SURGICAL HISTORY: Rhinoplasty performed in March 07, 2019. History of jaw surgery. Bowel surger y. CURRENT MEDICATIONS: Include the followin. Amoxicillin 500 mg 3 times a day. 2. Iron sulfate 325 twice a day. 3. Clonazepam 1 mg at bedtime for sleep. 4. Methadone 107 mg daily. 5. Oxycodone 15 mg q.8h. p.r.n. pain. 6. Renvela 800 mg with each meal. 7. Omeprazole 20 mg a day. 8. Biotin 5000 mcg a day. PHYSICAL EXAMINATION: VITAL SIGNS: Temperature 98.8, pulse is 77, respirations 17, blood pressure 118/55, O2 saturation of 93% on room air. HEENT: Head normocephalic. Eyes: Extraocular muscles are intact. NOSE AND MOUTH: Normal. NECK: Supple. No neck vein distention. LUNGS: Clear to auscultation. HEART: Regular rhythm. No murmurs, gallops or rubs. ABDOMEN: Soft, nontender, no masses or organomegaly. EXTREMITIES: Lower extremities. No peripheral edema. Left arm, there is a left upper arm AV fistul a with a good thrill and bruit. The left hand is swollen, tender and weak. LABORATORY DATA: Hemoglobin 11.0, hematocrit 35.7, white blood count 8800. Sodium 139, potassium 6. 7, chloride 101, CO2 23, BUN 85, creatinine 8.8. IMPRESSION: 1. End-stage renal disease on maintenance hemodialysis. The patient is due for dialysis today and w ill be ordered stat. 2. Hyperkalemia due to #1. The patient was treated with medication in the emergency room. The dial ysis nurse will draw stat potassium predialysis to see what the level is. 3. Left hand pain and weakness. There may be some component of vascular steal syndrome, although noe gaines does have a good left radial pulse. The patient has been evaluated by Dr. Torin Luna, who saw her last week and will continue to follow her. 4. History of heroin use and now on methadone. 5. Anemia of chronic kidney disease. PLAN: 1. Stat hemodialysis, treatment ordered. 2. Vascular surgery consulted and involved in the case. 3. Continue routine medications. 4. I will follow the patient along with you medically. Dictated By: ALEXIS JIMENEZ MD, ND/AYDEN Conf#: [id number] DID#: [id number] CC: TERA LEON; TORIN LUNA MD;*EndCC*
--- NOTE | 2019-03-18 14:15 | PN ---
Date/Time of Note Date/Time of Note DATE: 03/18/19 TIME: 14:12 Assessment/Plan VTE Prophylaxis Risk score (from Ns)>0 risk: 4 SCD applied (from Ns): Yes Pharmacological prophylaxis: heparin Lines/Catheters IV Catheter Type (from Nrs): Saline Lock Assessment/Plan Hospital Course 1. Left upper extremity swelling secondary to recent thrombus of the AV fistula Patient has been seen by Dr. Butcher recently did a declotting procedure of the fistula Follow-up with vascular recommendations No further indications for antibiotics 2. End-stage renal disease Nephrology consultation obtained 3. Hypertension Continue home meds 4. History of anemia secondary to chronic disease and end-stage renal disease Monitor 5. History of chronic pain Pain control Prophylaxis: Heparin Result Diagram: 03/18/19 0543 03/18/19 0952 Results 24hrs Laboratory Tests Test 03/17/19 18:14 03/17/19 20:49 03/17/19 21:35 03/18/19 05:43 White Blood Count 8.8 # 9.3 Red Blood Count 3.64 L 3.16 L Hemoglobin 11.0 L 9.7 L Hematocrit 35.7 L 29.9 L Mean Corpuscular Volume 98.1 94.6 Mean Corpuscular 30.2 30.7 Hemoglobin Mean Corpuscular 30.8 L 32.4 Hemoglobin Concent Red Cell Distribution 17.9 H 17.6 H Width Platelet Count 501 #H 475 H Mean Platelet Volume 11.4 H 11.8 H Immature Granulocytes % 0.000 L 0.000 L Neutrophils % Segmented Neutrophils 4 L % (Manual) Band Neutrophils % 10 H (Manual) Lymphocytes % Lymphocytes % (Manual) 64 H 59 H Reactive Lymphocytes 16 H 19 H % (Manual) Monocytes % Monocytes % (Manual) 3 20 H Eosinophils % Basophils % Basophils % (Manual) 2 2 Metamyelocytes % 1 H (manual) Nucleated Red Blood 0.0 0.0 Cells % Immature Granulocytes # 0.000 0.000 Neutrophils # Neutrophils # (Manual) 0.4 L Band Neutrophils # 0.8 H Lymphocytes (Manual) 5.6 H 5.4 H Lymphocytes # Reactive Lymphocytes # 1.4 H 1.7 H Monocytes # Monocytes # (Manual) 0.2 L 1.8 H Eosinophils # Basophils # Basophils # (Manual) 0.1 H 0.1 H Metamyelocytes # 0.0 Nucleated Red Blood Cells # Platelet Estimate NORMAL NORMAL Giant Platelets 29 H 4 H Prothrombin Time 13.3 Prothrombin Time Ratio 1.0 INR International 1.00 Normalized Ratio Activated 36.0 H Partial Thromboplast Time Sodium Level 137 139 Potassium Level 6.6 *H 6.7 *H Chloride Level 101 101 Carbon Dioxide Level 21 23 Anion Gap 15 H 15 H Blood Urea Nitrogen 78 H 85 H Creatinine 8.15 H 8.80 H Est Glomerular Filtrat 5 L 5 L Rate mL/min Glucose Level 77 60 #L Calcium Level 8.8 8.3 L Free Thyroxine 1.09 Bedside Glucose 67 L 166 Polychromasia 1+ Poikilocytosis 1+ Anisocytosis 2+ Macrocytosis 1+ Target Cells 1+ Ovalocytes 1+ Hemoglobin A1c 5.1 Phosphorus Level 6.3 H Magnesium Level 1.7 Triglycerides Level 114 Cholesterol Level 106 LDL Cholesterol, 55 Calculated HDL Cholesterol 28 L Cholesterol/HDL Ratio 3.7 Thyroid Stimulating 0.304 L Hormone (TSH) Test 03/18/19 09:52 Potassium Level 6.2 *H Subjective 24 Hr Interval Summary Skin: erythema Exam/Review of Systems Exam Vitals Vital Signs Date Temp Pulse Resp B/P (MAP) Pulse Ox O2 O2 Flow FiO2 Time Delivery Rate 03/18/19 85 13:20 03/18/19 98.0 18 110/67 97 11:58 (81) 03/18/19 Room Air 10:50 03/17/19 21 20:53 Intake and Output 03/17/19 03/17/19 03/18/19 1515:00 23:00 07:00 IntakeIntake Total 300 ml 240 ml BalanceBalance 300 ml 240 ml Constitutional: alert, oriented Respiratory: clear to auscultation Cardiovascular: regular rate and rhythm Gastrointestinal: soft; No distended Musculoskeletal: No nl extremities to inspection Results Results 24hrs Laboratory Tests Test 03/17/19 18:14 03/17/19 20:49 03/17/19 21:35 03/18/19 05:43 White Blood Count 8.8 # 9.3 Red Blood Count 3.64 L 3.16 L Hemoglobin 11.0 L 9.7 L Hematocrit 35.7 L 29.9 L Mean Corpuscular Volume 98.1 94.6 Mean Corpuscular 30.2 30.7 Hemoglobin Mean Corpuscular 30.8 L 32.4 Hemoglobin Concent Red Cell Distribution 17.9 H 17.6 H Width Platelet Count 501 #H 475 H Mean Platelet Volume 11.4 H 11.8 H Immature Granulocytes % 0.000 L 0.000 L Neutrophils % Segmented Neutrophils 4 L % (Manual) Band Neutrophils % 10 H (Manual) Lymphocytes % Lymphocytes % (Manual) 64 H 59 H Reactive Lymphocytes 16 H 19 H % (Manual) Monocytes % Monocytes % (Manual) 3 20 H Eosinophils % Basophils % Basophils % (Manual) 2 2 Metamyelocytes % 1 H (manual) Nucleated Red Blood 0.0 0.0 Cells % Immature Granulocytes # 0.000 0.000 Neutrophils # Neutrophils # (Manual) 0.4 L Band Neutrophils # 0.8 H Lymphocytes (Manual) 5.6 H 5.4 H Lymphocytes # Reactive Lymphocytes # 1.4 H 1.7 H Monocytes # Monocytes # (Manual) 0.2 L 1.8 H Eosinophils # Basophils # Basophils # (Manual) 0.1 H 0.1 H Metamyelocytes # 0.0 Nucleated Red Blood Cells # Platelet Estimate NORMAL NORMAL Giant Platelets 29 H 4 H Prothrombin Time 13.3 Prothrombin Time Ratio 1.0 INR International 1.00 Normalized Ratio Activated 36.0 H Partial Thromboplast Time Sodium Level 137 139 Potassium Level 6.6 *H 6.7 *H Chloride Level 101 101 Carbon Dioxide Level 21 23 Anion Gap 15 H 15 H Blood Urea Nitrogen 78 H 85 H Creatinine 8.15 H 8.80 H Est Glomerular Filtrat 5 L 5 L Rate mL/min Glucose Level 77 60 #L Calcium Level 8.8 8.3 L Free Thyroxine 1.09 Bedside Glucose 67 L 166 Polychromasia 1+ Poikilocytosis 1+ Anisocytosis 2+ Macrocytosis 1+ Target Cells 1+ Ovalocytes 1+ Hemoglobin A1c 5.1 Phosphorus Level 6.3 H Magnesium Level 1.7 Triglycerides Level 114 Cholesterol Level 106 LDL Cholesterol, 55 Calculated HDL Cholesterol 28 L Cholesterol/HDL Ratio 3.7 Thyroid Stimulating 0.304 L Hormone (TSH) Test 03/18/19 09:52 Potassium Level 6.2 *H Medications Medication Current Medications Dextrose (D50w Syringe) ONCE PRN IV DECREASED GLUCOSE; Start 03/17/19 at 20:30; Stop 03/18/19 at 20:29 IV Flush (NS 3 ml) 3 ml PER PROTOCOL IV ; Start 03/17/19 at 21:30 Ondansetron HCl (Zofran Inj) 4 mg Q6H PRN IV NAUSEA/VOMITING; Start 03/17/19 at 21:30 Acetaminophen (Tylenol Tab) 650 mg Q6H PRN PO .PAIN 1-3 OR TEMP; Start 03/17/19 at 21:30 Acetaminophen/ Hydrocodone Bitart (Holliday (5/325)) 1 tab Q6H PRN PO .MOD PAIN 4- 6 Last administered on 03/18/19at 13:37; Admin Dose 1 TAB; Start 03/17/19 at 21:30 Morphine Sulfate (morphine) 2 mg Q4H PRN IV .SEVERE PAIN 7-10 Last administered on 03/18/19at 05:32; Admin Dose 2 MG; Start 03/17/19 at 21:30 Docusate Sodium (Colace) 100 mg Q12H PRN PO .CONSTIPATION; Start 03/17/19 at 21: 30 Magnesium Hydroxide (Milk Of Mag) 30 ml DAILY PRN PO .CONSTIPATION; Start 03/17/19 at 21:30 Heparin Sodium (Porcine) (Heparin (5000 Units/1ml)) 5,000 unit Q12 SC Last administered on 03/18/19at 09:02; Admin Dose 5,000 UNIT; Start 03/18/19 at 09:00 Lorazepam (Ativan) 0.5 mg Q6H PRN IV ANXIETY; Start 03/17/19 at 21:30 Albuterol/ Ipratropium (Duoneb) 3 ml Q4H RESP THERAPY PRN HHN SHORTNESS OF DAISY TH; Start 03/17/19 at 21:30 Vancomycin HCl (Vanco Iv Per Pharmacy) VANCOMYCIN PER PHARMACY NOTE XX ; Start 03/17/19 at 21:30 Hydralazine HCl (Apresoline) 10 mg Q6H PRN IV ELEVATED BLOOD PRESSURE; Start 03/17/19 at 21:30 Clonidine (Catapres) 0.1 mg Q6H PRN PO ELEVATED BLOOD PRESSURE; Start 03/17/19 at 21:30 Nitroglycerin (Nitroglycerin (Sl Tab) 0.4 Mg) 1 tab Q5M PRN SL ANGINA; Start 03/17/19 at 21:30 Clonazepam (Klonopin) 1 mg QHS PRN PO ANXIETY; Start 03/17/19 at 21:30 Ferrous Sulfate (Ferrous Sulfate (Ec)) 325 mg BID PO Last administered on 03/18/19at 08:59; Admin Dose 325 MG; Start 03/18/19 at 09:00 Sevelamer Carbonate (Renvela) 4 gm WITH MEALS PO Last administered on 03/18/19at 13:38; Admin Dose 4 GM; Start 03/18/19 at 08:00 Cefazolin Sodium 50 ml @ 100 mls/hr Q24H IVPB ; Start 03/18/19 at 20:00 Pantoprazole (Protonix Tab) 40 mg DAILY@06 PO Last administered on 03/18/19at 05:31; Admin Dose 40 MG; Start 03/18/19 at 06:00 Vancomycin/Sodium Chloride 250 ml @ 125 mls/hr Q96H IVPB ; Start 03/21/19 at 21:00 DALJIT RIOS Mar 18, 2019 14:15
--- NOTE | 2019-03-18 15:27 | CONS ---
DATE OF ADMISSION: 03/17/2019 DATE OF CONSULTATION: 03/18/2019 TYPE OF CONSULTATION: Infectious Disease. REASON FOR CONSULTATION: Antibiotic management. HISTORY OF PRESENT ILLNESS: Graciela Dave is a 63-year-old female who was admitted through the e mergency room on 03/17/2019 with left arm pain and swelling and is being seen for antibiotic manageme nt. Her past problems include: 1. Chronic renal disease. 2. Anxiety. 3. Congestive heart failure. 4. Hypertension. 5. Anemia. 6. Chronic pain syndrome. 7. GERD. 8. Left upper extremity AV fistula. 9. Rhinoplasty on 03/07/2019. 10. Splenectomy. The patient presents with recurrent left forearm swelling and redness over the last few days. She wa s recently discharged a week ago for cellulitis of the left forearm. She complains of fever, chills, neck pain, chest pain, shortness of breath, dysuria. She notes subjective fever, but denies chills or any significant pain or dysuria. She has hemodialysis Tuesdays, , and Saturdays. PAST MEDICAL HISTORY: As outlined. FAMILY HISTORY: Noncontributory. PAST SURGICAL HISTORY: She had bowel surgery. She had metal plates and pins in her right leg and garcia s had jaw surgery. She comes in with acute encephalopathy. She has a history of heroin use in 2008. FAMILY HISTORY: Noncontributory. SOCIAL HISTORY: She does not smoke or drink, but she has a history of heroin use as noted. ALLERGIES: TRIMETHOPRIM AND SULFA. MEDICATIONS: Per chart. REVIEW OF SYSTEMS: Noncontributory. PHYSICAL EXAMINATION: GENERAL: The patient is a well-developed, well-nourished female, alert, responsive, in no acute dist ress. VITAL SIGNS: Stable. She is afebrile. SKIN: Without generalized rash. HEENT: Within normal limits. NECK: Supple. LYMPH NODES: None palpable. CHEST: Decreased breath sounds at the bases. HEART: Without murmur or gallop. ABDOMEN: Soft, nontender, without organosplenomegaly or masses. EXTREMITIES: Without cyanosis, clubbing, or edema. Left distal forearm or arm, however, is erythema tous, warm to the touch. There is no crepitus. RECTAL AND GENITAL: Deferred. NEUROLOGIC: No focal neurological abnormality. ANCILLARY LABORATORY DATA: White count of 8.8, H and H of 11 and 35.7, platelet count 501,000. BUN and creatinine 78/8.15. Potassium 6.6, blood glucose of 77 of the 8.8. She has 4% neutrophils and 1 0% bands, so she is about 14% neutrophils, but she is not absolutely neutropenic. The patient was st arted on vancomycin and ceftriaxone. Chest x-ray shows mild cardiomegaly and aortic atherosclerosis. The patient has acute left upper extremity cellulitis, started on vancomycin and Rocephin. HOSPITAL COURSE: The patient's white count is 9.3 today with no differential, so she may be absolute ly neutropenic. She is on vancomycin and cefazolin. She was seen by Dr. Kurtz. She may have n eutropenia secondary to some of the medications that she was on as an outpatient. The patient had a fistulogram by Dr. Butcher which showed venous stenosis and he performed a percutaneous intervention an d angioplasty of the left upper arm AV fistula. I am concerned with her neutropenia. We will contin ue her on current therapy. She is currently afebrile. I will dictate my findings to the hospitalist and to Dr. Kurtz. Dictated By: LUIS MANUEL BELTRAN MD, JD/AYDEN Conf#: [id number] RIVERA#: [id number] CC: TERA LEON;*EndCC*
--- NOTE | 2019-03-18 15:40 | CONS ---
DATE OF ADMISSION: 03/17/2019 DATE OF CONSULTATION: 03/18/2019 TYPE OF CONSULTATION: Vascular. REFERRING PHYSICIAN: Tera Leon MD REASON FOR CONSULTATION: Left arm pain. HISTORY OF PRESENT ILLNESS: This is a 63-year-old woman. She has end-stage renal disease. She is o n dialysis via left upper arm AV graft. She has anxiety, CHF, hypertension. She is not diabetic. S he has chronic pain. She takes methadone chronically. She has reflux. She basically came back to [facility] emergency room with left arm pain. She was here about 2 weeks ago with the same issue with some s welling in the forearm and hand and just a lot of pain. Actually, I did a fistulogram on admission. The upper arm AV graft was patent with severe stenosis of outflow of the graft. I treated that and then actually I had seen her back in the office last week. She has no complaints at that point. She came back in with pain and swelling in the arm again for the last 2 days. When I look at her, she w as actually not much different than when she was here before and slightly more swollen in the hands, but very soft. There is no sign of type of acute dramatic increase in the edema. PAST MEDICAL HISTORY: Again significant for anxiety, end-stage renal disease, CHF, hypertension, ane marietta, chronic pain syndrome, GERD. PAST SURGICAL HISTORY: Significant for left upper arm AV graft that was created about 6 months ago. To me, it looks like it has been in longer, but it is possible. It was made [place] believe [place] and Dr. Chery created it. She also has splenectomy in the past. She has also had some type of bow el surgery and right leg surgery and jaw surgery in the past. MEDICATIONS: Consist of: 1. Doxycycline. 2. Amoxicillin. 3. Biotin. 4. Iron. 5. Clonazepam. 6. Renvela. 7. Oxycodone. 8. Omeprazole. 9. Methadone. ALLERGIES: BACTRIM. SOCIAL HISTORY: She is an ex-heroin user, stopped apparently in 2008. She is not drinking or smokin g presently. FAMILY HISTORY: Noncontributory. REVIEW OF SYSTEMS: She denies any chest pain or shortness of breath. She really just complains of p ain in the left hand and forearm and then the upper arm as well. She has no abdominal or back pain. No fevers or chills. No recent weight gain or weight loss. PHYSICAL EXAMINATION: GENERAL: She is an elderly woman. She looks uncomfortable, but she is in no acute distres s. VITAL SIGNS: She has been afebrile. Blood pressure is 118/55, heart rate 77, respiratory rate 17. She is 93% sat on room air. PERIPHERAL VASCULAR: She has 2+ carotid, radial and brachial pulses bilaterally. Left arm AV graft has a soft thrill. There is a good radial pulse. The hand is edematous but it is very soft. It is not tensely swollen. Forearm has mild to moderate edema. LUNGS: Clear. HEART: Regular rate and rhythm. ABDOMEN: Soft, nontender, nondistended. Feet are warm. There is no leg edema. LABORATORY VALUES: Show normal white count. I think she had not gone to dialysis for a while. Her potassium was elevated as well as her creatinine, but otherwise her labs were normal. DIAGNOSTIC DATA: She had a duplex of the left arm that shows normal graft flow, but really no abnorm alities. She has adequate volume flow, does not appear to be in their normal velocities, no sign of the central venous occlusion or stenosis. IMPRESSION: Left arm swelling and pain of unclear etiology. She had the same symptoms about 2 weeks ago that just seemed to have resolved. I do not see any real erythema. It does not look infected t o me. The hand is moderately edematous as well as the forearm. I just did a fistulogram on her a fe w weeks ago that did not show really anything that would cause edema. It is not clear what the etiol ogy of this is. If it persists, then I would ligate the fistula and place a PermCath if she is not a ble to manage this. I am going to have her placed in an Jason wrap and keep the arm elevated and then I will see her again tomorrow. She is getting some antibiotics for possible underlying cellulitis th at is causing this. We will see how she improves with antibiotics and elevation and compression. Dictated By: TORIN FUCHS/AYDEN Conf#: [id number] DID#: [id number] CC: DALJIT RIOS MD; ALEXIS JIMENEZ MD; TERA LEON;*EndCC*
[2019-03-18] MEDS ORDERED: CEFAZOLIN 1 GM/50 ML (PMX) 50 ML IVPB SCH (20:00)
[2019-03-19 02:00] VITALS: BP 134/71; PULSE 72; RESP 18
[2019-03-19] MEDS: HYDROCODONE/APAP (5/325) TAB PO PRN ×2 (03:42→12:39)
[2019-03-19 07:55] VITALS: BP 116/50; PULSE 71; RESP 16
[2019-03-19] MEDS: SEVELAMER CARBONATE 0.8 GM PKT PO SCH ×2 (08:13→12:29)
[2019-03-19] MEDS: HEPARIN 5,000 UNIT/1 ML VIAL SC SCH (08:15)
[2019-03-19] MEDS: FERROUS SULFATE (EC) 325 MG TAB PO SCH (08:15)
[2019-03-19] MEDS: morphine 2 MG INJ IV PRN ×2 (10:12→14:20)
--- NOTE | 2019-03-19 11:58 | PDOCDIS ---
Discharge Instructions CONDITION [id number] Patient Condition: [id number] Good HOME CARE INSTRUCTIONS: [id number] Special Diet: [id number] RENAL ACTIVITY: [id number] Activity Restrictions: [id number] No Restrictions FOLLOW UP/APPOINTMENTS Follow-up Plan FOLLOW UP WITH YOUR PCP AND HD CENTER SCHEDULED, FOLLOW UP WITH DALJIT FINK Mar 19, 2019 11:58
--- NOTE | 2019-03-19 12:03 | PN ---
DATE: 03/19/2019 SUBJECTIVE: The patient had successful hemodialysis yesterday, tolerated well without any complicati ons. The patient was also evaluated by Dr. Sanders. No other events noted. OBJECTIVE: VITAL SIGNS: Blood pressure is 134/71, respiration 18, pulse 72, temperature 98.3. HEENT: Head is normocephalic. NECK: Supple. HEART: Regular rate. LUNGS: Show diminished breath sounds at the base. ABDOMEN: Soft, nontender to palpation without rebound or guarding. EXTREMITIES: Negative for clubbing, cyanosis. No edema. DERMATOLOGIC: No rashes. MUSCULOSKELETAL: The patient's left upper extremity has noted swelling with noted Jason bandage. NEUROLOGIC: No focal deficits. MEDICATIONS: The patient's medications have been reviewed. LABORATORY DATA: Has been reviewed. ASSESSMENT AND PLAN: 1. End-stage renal disease. The patient's access currently is an AV fistula. The patient had hemodi alysis yesterday, tolerated well. Plan for dialysis again tomorrow. 2. Hypokalemia. Continue dialysis on a low potassium bath. 3. Anemia. Monitor H and H levels. 4. Mineral bone disorder, monitor calcium and phosphorus levels. 5. Left upper extremity swelling. The patient was evaluated by Dr. Luna. The patient may need lig ation of AV fistula if swelling persists. Will continue to monitor closely. 6. Anxiety disorder. Continue Ativan. 7. Chronic pain syndrome. Continue current pain regimen. 8. Hypertension. Continue current blood pressure regimen. Dictated By: IMELDA PEREIRA DO NR/NTS Conf#: [id number] DID#: [id number] CC: TORIN LUNA MD; TERA LEON; DALJIT RIOS MD;*EndCC*
[2019-03-19 14:00] VITALS: BP 124/61; PULSE 70; RESP 17
--- NOTE | 2019-03-19 16:00 | DS ---
Date/Time of Note Date/Time of Note DATE: 03/19/19 TIME: 15:56 Discharge Summary Admission/Discharge Info Admit Date/Time Mar 17, 2019 at 21:10 Discharge Date/Time March 19, 2019 Discharge Diagnosis 1. Left upper extremity swelling secondary to recent thrombus of the AV fistula Swelling has improved Patient has been seen by Dr. Luna recently did a declotting procedure of the fistula Past recommendations for elevation of arm, no clear vascular issues causing the left upper extremity swelling No further indications for antibiotics 2. End-stage renal disease Nephrology consultation appreciated 3. Hypertension Continue home meds 4. History of anemia secondary to chronic disease and end-stage renal disease Monitor 5. History of chronic pain Pain control 6. Mild debility Home health for PT Patient Condition: Good Hospital Course Patient is 63-year-old female history of end-stage renal disease, chronic pain, hypertension who presents with left upper extremity swelling. Patient did have a recent thrombus of the AV fistula which was repaired. Patient had no evidence of infection and antibiotics were discontinued. Patient was seen by vascular surgery and etiology of swelling was not felt to be related to any vascular issues. Recommendation was for wrapping of the extremity as well as elevation which did improve the swelling. Patient was stable for DC and want to be discharged home, pillowcase maker did arrange for home health for PT. On the day of discharge patient's vitals, labs and physical exam are stable. Home Meds Active Scripts Doxycycline Hyclate* (Doxycycline Hyclate*) 100 Mg Tablet., 100 MG PO BID for 10 Days, #20 TAB Prov:KRISTEN MEDINA APPLICATION INTEGRATION ENGINEER 03/09/19 Amoxicillin* (Amoxil*) 500 Mg Capsule, 500 MG PO Q8 for 10 Days, #30 CAP Prov:KRISTEN MEDINA APPLICATION INTEGRATION ENGINEER 03/09/19 Reported Medications Biotin (Biotin) 5,000 Mcg Tab.rapdis, 5000 MCG PO 03/04/19 Ferrous Sulfate* (Ferrous Sulfate*) 325 Mg Tabec, 325 MG PO BID, TAB 03/04/19 Clonazepam* (Clonazepam*) 1 Mg Tablet, 1 MG PO QHS PRN for ANXIETY, TAB 03/04/19 Sevelamer Carbonate* (Renvela*) 800 Mg Tablet, 4 GM PO WITH MEALS, TAB 03/04/19 Oxycodone Hcl* (IR) (Oxycodone Hcl*) 15 Mg Tablet, 15 MG PO Q8 PRN for PAIN, TAB 03/04/19 Omeprazole* (Omeprazole*) 20 Mg Capsule., 20 MG PO DAILY, #30 CAP 03/04/19 Methadone Hcl* (Methadone*) 10 Mg Tab, 107 MG PO DAILY, TAB [id number]/5ml ,patient take 107mg-daily per clinic lead-Addis 03/04/19 Follow-up Plan FOLLOW UP WITH YOUR PCP AND HD CENTER SCHEDULED, FOLLOW UP WITH DR LUNA Primary Care Provider Not On Staff Doctor Time spent on discharge: > 30 minutes DALJIT RIOS Mar 19, 2019 15:59
--- NOTE | 2019-03-19 17:01 | CONS ---
Assessment/Plan Assessment/Plan Hospital Course (Demo Recall) 1400 Patient is alert looks comfortable, left upper extremity on a pillow, left forearm and hand swollen and painful to touch. AV fistula patent Antimicrobials: Ancef, Vanco Physical examination: This is a fragile well-developed elderly woman who is awake in no distress. Head atraumatic normocephalic neck is supple chest rise symmetrical breath sounds diminished bases heart: S1-S2. Abdomen soft bowel sounds present. Extremities: left wrist and hand swollen, fistula patent Assessment: 1. Recurrent swelling of left upper extremity 2. End-stage renal disease 3. Left upper extremity AV fistula 4. Rheumatoid arthritis Plan: Patient is stable, will keep her on IV Vanco post hemodialysis for 7 more days, vascular surgery recommendations noted, continue left upper extremity e levated continue Jason wrapping. Discussed with patient and at bedside Consultation Date/Type/Reason Admit Date/Time Mar 17, 2019 at 21:10 Initial Consult Date Type of Consult id Date/Time of Note DATE: 03/19/19 TIME: 16:57 Exam/Review of Systems Exam Vitals Vital Signs Date Temp Pulse Resp B/P (MAP) Pulse Ox O2 O2 Flow FiO2 Time Delivery Rate 03/19/19 99.7 70 17 124/61 96 Room Air 14:00 (82) 03/17/19 21 20:53 Intake and Output 03/18/19 03/18/19 03/19/19 1515:00 23:00 07:00 IntakeIntake Total 300 ml OutputOutput Total 2400 ml BalanceBalance -2400 ml 300 ml Results Result Diagram: 03/19/19 0522 03/19/19 0522 Results 24hrs Laboratory Tests Test 03/19/19 05:22 White Blood Count 6.4 # Red Blood Count 3.31 L Hemoglobin 9.8 L Hematocrit 31.2 L Mean Corpuscular Volume 94.3 Mean Corpuscular Hemoglobin 29.6 Mean Corpuscular Hemoglobin Concent 31.4 L Red Cell Distribution Width 17.8 H Platelet Count 435 H Mean Platelet Volume 11.1 H Immature Granulocytes % 0.300 Neutrophils % Segmented Neutrophils % (Manual) 1 L Lymphocytes % Lymphocytes % (Manual) 71 H Monocytes % Monocytes % (Manual) 26 H Eosinophils % Basophils % Basophils % (Manual) 1 Myelocytes % (Manual) 1 H Nucleated Red Blood Cells % 0.0 Immature Granulocytes # 0.020 Neutrophils # Lymphocytes (Manual) 4.5 H Lymphocytes # Monocytes # Monocytes # (Manual) 1.6 H Eosinophils # Basophils # Basophils # (Manual) 0.0 Myelocytes # 0.0 Nucleated Red Blood Cells # Platelet Estimate NORMAL Giant Platelets 1 H Polychromasia 1+ Hypochromasia 1+ Anisocytosis 1+ Macrocytosis 1+ Target Cells 1+ Ovalocytes 1+ Sodium Level 135 Potassium Level 4.9 Chloride Level 96 L Carbon Dioxide Level 30 Anion Gap 9 # Blood Urea Nitrogen 46 #H Creatinine 5.18 #H Est Glomerular Filtrat Rate mL/min 8 L Glucose Level 88 Calcium Level 8.2 L LATOYA SILVERMAN NP Mar 19, 2019 17:01
[2019-03-21] MEDS ORDERED: VANCOMYCIN 750 MG (PMX) 250 ML IVPB SCH (21:00)
== END 2019-03-19 16:00 | disposition home or self-care (01) | DRG 602 ==
LOC: E/R 16:15 → 6WM 21:10 → PP2 03-18 18:28
PROVIDERS: ADMIT Hospitalist; ATTEND Internal Medicine
PROC: 5A1D70Z Performance of Urinary Filtration, Intermittent, Less than 6 Hours Per Day (ICD-10-PCS; principal; 2019-03-18)
DX: L03.114 Cellulitis of left upper limb (principal); N18.6 End stage renal disease; I13.2 Hypertensive heart and chronic kidney disease with heart failure and with stage 5 chronic kidney disease, or end stage renal disease; F11.20 Opioid dependence, uncomplicated; M79.622 Pain in left upper arm; E87.5 Hyperkalemia; I50.9 Heart failure, unspecified; Z99.2 Dependence on renal dialysis; D63.1 Anemia in chronic kidney disease; G89.4 Chronic pain syndrome; K21.9 Gastro-esophageal reflux disease without esophagitis; F41.9 Anxiety disorder, unspecified; D70.9 Neutropenia, unspecified; M79.89 Other specified soft tissue disorders
CPT/HCPCS: 36415; 71045; 80048; 80061; 82962; 83036; 83735; 84100; 84132; 84439; 84443; 85025; 85610; 85730; 87081; 90935; 93005; 93971; 94640; 94664; 96365; 96368; 96375; 97161; J0610; J0696; J1644; J1815; J2270; J3370